=== PATIENT | male | born 1940 | race Caucasian/White ===

== ENCOUNTER 2019-10-07 02:23 | Emergency (ER) | payer MEDICARE, OTHER, SELFPAY ==
[2019-10-07] VITALS (18 sets, daily range): BP systolic 109–137; BP diastolic 66–87; PULSE 79–93; RESP 16–34; TEMP 36.5–36.6; O2SAT 95–100
--- NOTE | ~2019-10-07 | XR_ITS ---
EXAMINATION: XR chest 2V DATE: 10/07/2019 03:16 INDICATION: Fever and shortness of breath. TECHNIQUE: Frontal and lateral views of the chest were obtained. COMPARISON: Chest 2 views 09/11/2019, chest CT 09/12/2019 FINDINGS: The lung volumes are small. There are interstitial and airspace opacities in all lung zones bilaterally. No pleural effusion or pneumothorax. Cardiomegaly is noted. Median sternotomy wires and mediastinal surgical clips are seen, likely from prior coronary artery bypass grafting. There are pr ominent paracardial fat pads. There is surgical clips in the abdomen. IMPRESSION: 1. Small lung volumes with worsened diffuse lung disease, consistent with pulmonary edema versus pneu monia superimposed on chronic interstitial lung disease. 2. Cardiomegaly. Reviewed, dictated and finalized at location A. R REGISTRAR IMPRESSION: 1. Small lung volumes with worsened diffuse lung disease, consistent with pulmo nary edema versus pneumonia superimposed on chronic interstitial lung disease. 2. Cardiomegaly.
--- NOTE | 2019-10-07 02:25 | ED.FEVER ---
HPI - Fever General Chief Complaint: Fever Stated Complaint: fever Time Seen by Provider: 10/07/19 02:26 Source: patient, family, EMS and RN notes reviewed Mode of arrival: EMS Limitations: no limitations History of Present Illness HPI Narrative: A 78 y/o male presents to the ED via EMS from [facility] d/t a fever and SOB earlier today. Per EMS states that they were told that the pt had a fever of 101 and was sating 88% on his baseline 6L NC. Upon their arrival the pt had already received Tylenol and no longer had a fever and was sating 99% on his 6L. Per reports that [facility] today. She notes that the pt was seen here last month and was transferred to [facility], where he had a cardiac ablation. She notes that while there the pt got the flu and developed pneumonia, so he never got the biopsy because it was too dangerous . She also notes that the pt has been having generalized weakness and confusion. MD elicited complaint: fever Onset (ago): hour(s) Measured temperature: 101 F Relieving factors: acetaminophen Associated symptoms: shortness of breath (resolved), confusion and other (generalized weakness) Treatments prior to arrival fever: acetaminophen Related Data Home Medications Medication Instructions Recorded Confirmed cholecalciferol (vitamin D3) 25 1,000 unit PO DAILY 07/19/19 09/12/19 mcg (1,000 unit) capsule cyanocobalamin (vitamin B-12) 2,000 mcg PO DAILY 07/19/19 09/12/19 1,000 mcg capsule folic acid 1 mg tablet 1 mg PO DAILY 07/19/19 09/12/19 montelukast 10 mg tablet 10 mg PO DAILY 07/19/19 09/12/19 thiamine HCl (vitamin B1) 100 mg 100 mg PO DAILY 07/19/19 09/12/19 tablet furosemide 20 mg tablet 20 mg PO QAM 07/20/19 09/12/19 acetaminophen 500 mg PO Q4H PRN 10/07/19 aspirin [Adult Low Dose Aspirin] 81 mg PO DAILY 10/07/19 bupropion HCl 75 mg PO DAILY 10/07/19 levalbuterol HCl 1.25 mg INHALATION QID 10/07/19 melatonin 3 mg PO HS 10/07/19 metoprolol tartrate 12.5 mg PO BID 10/07/19 prednisone 20 mg PO DAILY 10/07/19 prednisone 30 mg PO DAILY 10/07/19 terazosin 1 mg PO DAILY 10/07/19 trazodone 25 mg PO HS 10/07/19 Allergies Allergy/AdvReac Type Severity Reaction Status Date / Time amoxicillin AdvReac Unknown Diarrhea Verified 10/07/19 02:59 Review of Systems Review of Systems: All systems reviewed & are unremarkable except as noted in HPI and below Constitutional: Constitutional: Reports fever(s) (101 - resolved) and Reports weakness (generalized) Respiratory: Respiratory: Reports dyspnea (resolved) Neurologic: Reports confusion [facility] Past Medical History Medical History Abrasion, face w/o infection Acute deep vein thrombosis (DVT) of distal end of left lower extremity Alcohol abuse Alcohol dependence in remission Alcoholism Atherosclerotic heart disease of [place] coronary artery with angina pectoris Bibasilar crackles Body mass index (bmi) 26.0-26.9, adult (11/19/18) Body mass index (bmi) 29.0-29.9, adult (09/09/17) BPH with elevated PSA Bronchospasm CAD (coronary artery disease) Chronic fatigue Deficiency of other specified B group vitamins Dietary counseling and surveillance (07/31/16) Dorsalgia, unspecified Elevated liver enzymes Elevated prostate specific antigen (PSA) Emotional lability Encounter for immunization (06/21/18) Encounter for Medicare annual wellness exam Essential (primary) hypertension Exercise hypoxemia Falls frequently Gastro-esophageal reflux disease without esophagitis Hyperplastic polyp of descending colon Impacted cerumen of right ear Low back pain Major depressive disorder, recurrent, unspecified Major depressive disorder, single episode, unspecified Mixed hyperlipidemia MRSA (methicillin resistant staph aureus) culture positive Other dietary vitamin B12 deficiency anemia Other prison (current) drug therapy Other streptococcus as the cause of diseases classified elsewhere Overwe
[2019-10-07 03:02] LABS: Basophils Percent Auto 0.1 % (0.2-1.2); Eosinophils Absolute Auto 0.1 K/mm3 (0-0.3); Eosinophils Percent Auto 1.3 % (0-4.4); Hematocrit 34.4 % (42.0-52.0); Hemoglobin 11.5 g/dL (14.0-18.0); Immature Granulocyte Absolute 0.05 K/mm3 (0.00-0.031); Immature Granulocyte Percent A 0.5 % (0-0.5); Lymphocytes Absolute Auto 1.12 K/mm3 (0.9-3.2); Lymphocytes Percent Auto 12.1 % (18.3-44.2); Mean Corpuscular HGB Conc 33.4 g/dl (32-36); Mean Corpuscular Hemoglobin 34.6 pg (26-34); Mean Corpuscular Volume 103.6 fl (80-100); Mean Platelet Volume 11.2 fl (7.4-10.4); Monocytes Absolute Auto 0.5 K/mm3 (0.1-0.6); Monocytes Percent Auto 5.3 % (2.6-8.5); Neutrophils Absolute Auto 7.5 K/mm3 (1.3-6.7); Neutrophils Percent Auto 80.7 % (45.5-73.1); Platelet Count Result 166 k/mm3 (150-375); Red Blood Count 3.32 M/mm3 (4.6-6.20); White Blood Count 9.3 K/mm3 (4.5-10.0)
[2019-10-07 03:04] LABS: Alveolar/Arterial O2 Gradient 170.4 mmHg; Base Excess ABG 3.5 mEq/l (+/-2.0); Carboxyhemoglobin 0.1 % THb (0-2.0); Device NASAL CANNULA; Fractional Inspired Oxygen 44 %; HCO3 ABG 27.1 mEq/l (22.0-26.0); Methemoglobin ABG 0.2 %THb (0-1.5); Modified Allen's Test Pass; Oxygen Content ABG 17.1 %vol (16.0-22.0); Oxyhemoglobin 96.6 % THb (90.0-100.0); PCO2 ABG 37.5 mmHg (35.0-45.0); PO2 ABG 100.6 mmHg (80.0-100.0); PO2 FiO2 Ratio Arterial Blood 2.29 %; Reduced Hemoglobin 3.1 %THb (0-5.0); Site Drawn RIGHT RADIAL; Total Hemoglobin 12.5 g/dL (12.0-18.0); pH ABG 7.477 (7.350-7.450)
[2019-10-07 03:14] LABS: INR 2.3; Partial Thromboplastin Time 29.8 SECONDS (22.3-36.8); Prothrombin Time 24.4 Seconds (11.1-14.7)
[2019-10-07 03:18] LABS: Lactic Acid Reflex 0.8 mmol/L (0.7-2.1)
[2019-10-07 03:38] LABS: Alanine Aminotransferase 127 U/L (4-50); Alkaline Phosphatase 101 U/L (38-126); Aspartate Amino Transferase 78 U/L (17-59); Bilirubin,Total 0.8 mg/dL (0.2-1.3); Blood Urea Nitrogen 14 mg/dL (9-20); CRP 0.8 mg/dL (<1.0); Calcium 8.5 mg/dL (8.4-10.2); Carbon Dioxide 30 mmol/L (22-30); Chloride 101 mmol/L (98-107); Estimated Glomerular Filt Rate > 60; Glucose 82 mg/dL (75-110); Potassium 3.2 mmol/L (3.4-5.0); Sodium 137 mmol/L (137-145)
[2019-10-07 03:49] LABS: Add Urine Microscopic? YES; Appearance Urine Clear (Clear); Bilirubin Urine Negative (Negative); Blood Urine Negative (Negative); Color Urine Yellow (Yellow); Glucose Urine UA Negative (Negative); Ketones Urine Negative (Negative); Leukocyte Esterase Ur Negative LEU/UL (Negative); Mucus Urine Rare /lpf; Nitrate Urine Negative (Negative); Protein Urine Negative (Negative); RBC Urine 0-2 /hpf (0-2); Specific Grav Ur 1.018 (1.001-1.035); WBC Urine 0-3 /hpf
--- NOTE | 2019-10-07 05:13 | PC.NURSE ---
Called [facility] to transport patient back to facility...ETA 20 minutes.
== END 2019-10-07 05:53 ==
PROVIDERS: Emergency Provider Emergency Medicine; PCP Family Medicine
DX: J84.9 Interstitial pulmonary disease, unspecified (principal); I25.10 Atherosclerotic heart disease of native coronary artery without angina pectoris; D51.0 Vitamin B12 deficiency anemia due to intrinsic factor deficiency; E55.9 Vitamin D deficiency, unspecified; I10 Essential (primary) hypertension; K21.9 Gastro-esophageal reflux disease without esophagitis; E78.2 Mixed hyperlipidemia; Z86.14 Personal history of Methicillin resistant Staphylococcus aureus infection; Z79.82 Long term (current) use of aspirin; F10.21 Alcohol dependence, in remission; F33.9 Major depressive disorder, recurrent, unspecified; Z86.718 Personal history of other venous thrombosis and embolism; I51.7 Cardiomegaly
CPT/HCPCS: 36415; 36600; 71046; 80053; 81001; 82375; 82805; 83050; 83605; 85025; 85610; 85730; 86140; 87040; 87804; 99283

== ENCOUNTER 2019-12-21 18:40 | Inpatient (IN) | payer MEDICARE, OTHER, SELFPAY ==
[2019-12-21] VITALS (9 sets, daily range): BP systolic 135–166; BP diastolic 86–105; PULSE 102–123; RESP 12–40; TEMP 37.3; O2SAT 90–97
--- NOTE | ~2019-12-21 | CT_ITS ---
EXAMINATION: CT chest wo con EXAM DATE: 12/21/2019 20:28 INDICATION: Cough, shortness of breath, respiratory distress. TECHNIQUE: Spiral CT of the chest without contrast. Axial, coronal and sagittal images were reviewe d. Coronal maximum intensity pixel images of chest reviewed. The dose-length product (DLP) for this examination was 571.86 mGy-cm. The exposure was tailored according to patient size (auto mA exposur e control), and iterative reconstruction (ASIR) was used as additional dose reduction technique. Comp arison is made to prior examination from 09/12/2019. FINDINGS: There is extensive groundglass airspace disease throughout the lungs, with interlobular se ptal thickening. This has progressed significantly compared to this examination, which could be progr ession of nonspecific interstitial pneumonitis pattern interstitial lung disease and/or superimposed acute airspace disease such as edema or pneumonia. There is no more solid confluent consolidation. Th ere is moderate sliding gastroesophageal hiatal hernia. There are no pleural or pericardial effusio ns. Tracheobronchial tree is patent. Some reactive borderline size mediastinal lymph nodes. Ther e is no pneumothorax. Sternotomy wires. There is cardiomegaly. There are dense coronary arteries, could be severe coronary arterial sclerosis and/or coronary artery stent(s), which are difficult to distinguish due to cardia c motion on this non-gated exam. Correlate with cardiac history and consider cardiology consult if no t recently evaluated. Punctate left nephrolithiasis. There is thoracic spondylosis without osteobla stic or osteolytic lesions identified. IMPRESSION: 1. Extensive bilateral groundglass opacities, intralobular septal thickening, significant progressio n compared to August. Could be progression of NSIP and/or superimposed acute edema or pneumonia. 2. Moderate-sized gastroesophageal hiatal hernia. 3. Cardiomegaly. Coronary arterial sclerosis or possibly stents. Reviewed, dictated and finalized at location A. IMPRESSION: 1. Extensive bilateral groundglass opacities, intralobular septal thickening, significant progression compared to August. Could be progression of NSIP and/o r superimposed acute edema or pneumonia. 2. Moderate-sized gastroesophageal hiatal hernia. 3. Cardiomegaly. Coronary arterial sclerosis or possibly stents.
--- NOTE | ~2019-12-21 | XR_ITS ---
EXAMINATION: XR chest 1V portable EXAM DATE: 12/21/2019 19:51 INDICATION: Extreme shortness of breath. TECHNIQUE: Portable AP frontal chest x-ray was obtained. Comparison is made to prior examination from 10/07/2019. FINDINGS: Sternotomy wires are present without findings to suggest sternal dehiscence. Again there is cardiomegaly and pulmonary vascular congestion. Again there is rather extensive bilateral abnormal r eticulation, probably edema and/or pneumonia, but please note that some component of interstitial irwin g disease was seen on prior chest CT earlier this year. There is no pneumothorax suspected. No sizabl e pleural effusion. There are mild bony degenerative changes. IMPRESSION: 1. Cardiomegaly, congestion and rather extensive abnormal reticulation, probably edema and/or pneum onia. Reviewed, dictated and finalized at location A. IMPRESSION: 1. Cardiomegaly, congestion and rather extensive abnormal reticulation, proba gypsy edema and/or pneumonia.
--- NOTE | ~2019-12-21 | XR_ITS ---
XR chest 1V portable DATE: 12/23/2019 12:58 INDICATION: Severe shortness of breath. History of interstitial lung disease TECHNIQUE: Portable AP chest on 12/23/2019 at 1255 hours COMPARISON: 12/21/[address] chest FINDINGS: There is no significant change of extensive interstitial infiltrates throughout both lungs compared to 12/21/2019. Status post sternotomy. No pleural effusion or pneumothorax is evident. IMPRESSION: Extensive interstitial infiltrates throughout both lungs, with little interval change com pared to 12/21/2019 Reviewed, dictated and finalized at location A. IMPRESSION: Extensive interstitial infiltrates throughout both lungs, with chanel le interval change compared to 12/21/2019
--- NOTE | ~2019-12-21 | XR_ITS ---
XR chest 1V portable 12/25/2019 08:11 Indication: Interstitial lung disease exacerbation. Dyspnea. Procedure: AP portable chest Comparison: Comparison to multiple prior studies sequentially, with oldest reviewed study dated 09/11. Findings: Shallow inspiration. Status post median sternotomy. No significant change to diffuse bilate ral airspace disease compared with prior examination. No pneumothorax. No acute osseous abnormality. Impression: 1: No significant change to diffuse bilateral airspace disease which may represent pneumonia or edema . Reviewed, dictated and finalized at location A. Impression: 1: No significant change to diffuse bilateral airspace disease which may repres ent pneumonia or edema.
--- NOTE | 2019-12-21 19:19 | ECG_ITS ---
Measurements Intervals [place] Rate: 98 P: -35 CT: 204 QRS: 14 QRSD: 79 T: -18 QT: 318 QTc: 407 Interpretive Statements SINUS RHYTHM VENTRICULAR PREMATURE COMPLEX, ATRIAL COUPLET AND FREQUENT ATRIAL PREMATURE COMPLEXES BASELINE ARTIFACT- I, III, AVL, AVF ABNORMAL ECG Electronically Signed On 12-22-2019 7:13:05 CDT by Carlton Hunter D.O.
--- NOTE | 2019-12-21 19:45 | ED.SOB ---
HPI - SOB/Dyspnea General Chief Complaint: Shortness of Breath/Dyspnea Stated Complaint: RESP DISTRESS Time Seen by Provider: 12/21/19 19:29 Source: patient History of Present Illness HPI Narrative: Pt c/o sob, started 2 night ago, worse today. Pt has a h/o interstitial lung disease and on 3-4 L at home. Pt also c/o left sided chest tightness. MD elicited complaint: shortness of breath and cough Severity: similar to previous episodes Related Data Home Medications Medication Instructions Recorded Confirmed cholecalciferol (vitamin D3) 25 1,000 unit PO DAILY 07/19/19 10/24/19 mcg (1,000 unit) capsule cyanocobalamin (vitamin B-12) 2,000 mcg PO DAILY 07/19/19 10/24/19 1,000 mcg capsule folic acid 1 mg tablet 1 mg PO DAILY 07/19/19 10/24/19 thiamine HCl (vitamin B1) 100 mg 100 mg PO DAILY 07/19/19 10/24/19 tablet oxygen-air delivery systems #1 11/24/19 11/24/19 furosemide 40 mg tablet 40 mg PO QAM tablet 12/19/19 12/19/19 pantoprazole [Protonix] 40 mg PO QAM 12/21/19 12/21/19 Allergies Allergy/AdvReac Type Severity Reaction Status Date / Time amoxicillin AdvReac Unknown Diarrhea Verified 12/19/19 10:29 Review of Systems Review of Systems: All systems reviewed & are unremarkable except as noted in HPI and below Constitutional: Constitutional: Denies body ache(s), Denies chills, Denies excessive sweating, Denies fatigue, Denies fever(s), Denies headache(s), Denies lethargy, Denies malaise, Denies weakness and Denies weight loss Eyes: Eyes: Denies blurry vision, Denies change in vision and Denies loss of vision ENT: Denies dizziness, Denies ear discharge, Denies headache(s), Denies lip swelling, Denies epistaxis, Denies nasal congestion, Denies neck pain, Denies throat swelling and Denies tongue swelling Cardiovascular: Cardiovascular: Denies chest pain at rest, Denies chest pain with activity, Denies diaphoresis, Denies rapid heart rate, Denies edema, Denies irregular heart rhythm, Denies lightheadedness and Denies palpitations Respiratory: Respiratory: Denies chest congestion and Denies hemoptysis Gastrointestinal: Gastrointestinal: Denies abdominal pain, Denies melena, Denies hematochezia, Denies diarrhea, Denies nausea, Denies vomiting and Denies hematemesis Musculoskeletal: Musculoskeletal: Denies abnormal gait, Denies deformity, Denies joint swelling, Denies limited range of motion, Denies neck pain and Denies numbness Neurologic: Denies Abnormal speech present, Denies abnormal gait, Denies confusion, Denies dizziness, Denies headache(s), Denies focal weakness, Denies loss of vision, Denies numbness, Denies Other visual disturbances, Denies Sensory deficit (Neuro) and Denies weakness Psychiatric: Psychiatric: Denies confusion, Denies depression, Denies auditory hallucinations, Denies homicidal ideation and Denies suicidal ideation Endocrine: Endocrine: Denies cold intolerance, Denies excessive sweating, Denies fatigue, Denies heat intolerance and Denies palpitations Hematologic/Lymphatic: Hematologic/Lymphatic: Denies easy bleeding and Denies easy bruising Allergic/Immunologic: Allergic/Immunologic: Denies lip swelling, Denies throat swelling and Denies tongue swelling [facility] Past Medical History Medical History (Updated 12/21/19 @ 21:47 by Ethan Uriostegui MD) Abrasion, face w/o infection Acute deep vein thrombosis (DVT) of distal end of left lower extremity Alcohol abuse Alcohol dependence in remission Alcoholism Atherosclerotic heart disease of [place] coronary artery with angina pectoris Bibasilar crackles Body mass index (bmi) 26.0-26.9, adult (11/19/18) Body mass index (bmi) 29.0-29.9, adult (09/09/17) BPH with elevated PSA Bronchospasm CAD (coronary artery disease) Chronic fatigue Colon polyp Deficiency of other specified B group vitamins Dietary counseling and surveillance (07/31/16) Dorsalgia, unspecified Elevated liver enzymes Elevated prostate specific antigen (PSA) Emotional lability Encounter
[2019-12-21] MEDS: ALBUTEROL SULFATE NEB 2.5 MG/0.5 ML INH 5 MG INHALATION (19:50)
[2019-12-21] MEDS: IPRATROPIUM BR 0.02% INH SOLN 0.5 MG/2.5 ML VIAL INHALATION (19:50)
[2019-12-21 20:02] LABS: Alveolar/Arterial O2 Gradient 165.1 mmHg; Base Excess ABG 0.8 mEq/l (+/-2.0); Carboxyhemoglobin 0.6 % THb (0-2.0); Device NASAL CANNULA; Fractional Inspired Oxygen 40 %; HCO3 ABG 24.2 mEq/l (22.0-26.0); Methemoglobin ABG 0.3 %THb (0-1.5); Modified Allen's Test Pass; Oxygen Content ABG 18.8 %vol (16.0-22.0); Oxygen Saturation ABG 96.4 % (95.0-100.0); Oxyhemoglobin 94.6 % THb (90.0-100.0); PCO2 ABG 35.2 mmHg (35.0-45.0); PO2 ABG 79.6 mmHg (80.0-100.0); PO2 FiO2 Ratio Arterial Blood 1.99 %; Reduced Hemoglobin 4.5 %THb (0-5.0); Site Drawn LEFT RADIAL; Total Hemoglobin 14.1 g/dL (12.0-18.0); pH ABG 7.456 (7.350-7.450)
--- NOTE | 2019-12-21 20:14 | PC.NURSE ---
Assumed care of pt at this time. report from EDWIN Bolden
[2019-12-21 21:05] LABS: Basophils Absolute Auto 0.1 K/mm3 (0.0-0.1); Basophils Percent Auto 0.6 % (0.2-1.2); Eosinophils Absolute Auto 0.4 K/mm3 (0-0.3); Eosinophils Percent Auto 3.7 % (0-4.4); Hematocrit 39.1 % (42.0-52.0); Hemoglobin 12.7 g/dL (14.0-18.0); Immature Granulocyte Absolute 0.08 K/mm3 (0.00-0.031); Immature Granulocyte Percent A 0.9 % (0-0.5); Lymphocytes Absolute Auto 1.37 K/mm3 (0.9-3.2); Lymphocytes Percent Auto 14.7 % (18.3-44.2); Mean Corpuscular HGB Conc 32.5 g/dl (32-36); Mean Corpuscular Hemoglobin 31.2 pg (26-34); Mean Corpuscular Volume 96.1 fl (80-100); Mean Platelet Volume 10.6 fl (7.4-10.4); Monocytes Absolute Auto 0.6 K/mm3 (0.1-0.6); Monocytes Percent Auto 6.6 % (2.6-8.5); Neutrophils Absolute Auto 6.9 K/mm3 (1.3-6.7); Neutrophils Percent Auto 73.5 % (45.5-73.1); Platelet Count Result 163 k/mm3 (150-375); Red Blood Count 4.07 M/mm3 (4.6-6.20); Red Cell Distribution Width 12.9 % (11.5-14.5); White Blood Count 9.4 K/mm3 (4.5-10.0)
[2019-12-21 21:17] LABS: Blood Urea Nitrogen 10 mg/dL (9-20); Calcium 8.7 mg/dL (8.4-10.2); Carbon Dioxide 30 mmol/L (22-30); Chloride 101 mmol/L (98-107); Estimated Glomerular Filt Rate > 60; Glucose 101 mg/dL (75-110); Sodium 136 mmol/L (137-145)
[2019-12-21 21:29] LABS: NT Pro B Type Natriuretic Pept 566 PG/ML (5-100); Troponin I 0.014 ng/mL (0.000-0.034)
[2019-12-21] MEDS: FUROSEMIDE INJ 40 MG/4 ML VIAL 20 MG IV PUSH (21:43)
--- NOTE | 2019-12-21 22:08 | ECG_ITS ---
Measurements Intervals [place] Rate: 125 P: FL: 0 QRS: 50 QRSD: 77 T: -15 QT: 286 QTc: 412 Interpretive Statements MULTIFOCAL ATRIAL TACHYCARDIA ATRIAL PREMATURE COMPLEXES NONSPECIFIC ST & T-WAVE ABNORMALITY- DIFFUSE LEADS BASELINE ARTIFACT- I, III, V1-V3 ABNORMAL ECG Electronically Signed On 12-22-2019 7:21:53 CDT by Carlton Hunter D.O.
--- NOTE | 2019-12-21 22:17 | PC.NURSE ---
pt called out. reports it is a lot of work to urinate and he is short of breath and has chest pain. pt requesting inhaler. EDP notified and respiratory called to place pt on bipap
[2019-12-21] MEDS: LORAZEPAM INJ 2 MG/ML VIAL 0.5 MG IV PUSH (22:49)
[2019-12-22] VITALS (24 sets, daily range): BP systolic 92–156; BP diastolic 64–97; PULSE 73–112; RESP 12–97; TEMP 36.8–37.2; O2SAT 29–100; BMI 27.6
--- NOTE | 2019-12-22 02:24 | ADMGEN ---
This patient, Sonny Laguerre, was admitted to Intensive Care Unit-9 12/22/2019 0158. Patient/family oriented to hospital policies and general routines including ID bracelet, bed and alarms, visiting hours, pain management, procedures, bathroom and other care routines, personal items, smoking policy, room service/diet, and visiting hours. Valuables list has been completed. Information on how to activate the Rapid Response Team has been discussed. Patient/Family are encouraged to report perceived risks to care and to ask questions if they do not understand what they are told or what they should do.
[2019-12-22 02:41] LABS: Alveolar/Arterial O2 Gradient 488.8 mmHg; Base Excess ABG 5.7 mEq/l (+/-2.0); Fractional Inspired Oxygen 90 %; HCO3 ABG 28.9 mEq/l (22.0-26.0); Oxygen Content ABG 18.9 %vol (16.0-22.0); Oxygen Saturation ABG 98.5 % (95.0-100.0); Oxyhemoglobin 97.1 % THb (90.0-100.0); PO2 FiO2 Ratio Arterial Blood 1.28 %; Total Hemoglobin 13.7 g/dL (12.0-18.0)
[2019-12-22 02:43] LABS: Device HIGH FLOW NASAL CANN; Modified Allen's Test Pass; Site Drawn RIGHT RADIAL
--- NOTE | 2019-12-22 03:15 | PM.IMHP ---
H&P: HPI History of Present Illness Chief complaint: Acute Resp Failure Narrative: This is a 78-year-old male with known coronary artery disease status post CABG x3, chronic alcoholism, history of chronic interstitial lung disease with recently diagnosed nonspecific interstitial pneumonia since November of 2018 who presented to the hospital with a complaint of worsening shortness of breath over the past 2 days. The patient is known to normally be on 3-4 L of oxygen at home. The patient has also had left sided chest pain tonight which he describes as mild. The patient reports that he has been coughing but isn't sure if he has had a fever. He was evaluated in the ER tonight and swabbed for COVID-19 virus. The patient was found to be in acute respiratory distress and was initiated on Bipap but downgraded back to nasal cannula as he is a COVID-19 rule out. The patient arrived to the ICU on 5L of oxygen via NC. CT Chest demonstrated extensive bilateral groundglass opacities. The patient denies any other symptoms at this time. The patient was treated with lasix and antibiotics in the ER tonight. Wheel Press Operator has been consulted. Review of Systems Review of Systems: All systems reviewed & are unremarkable except as noted in HPI and below PMFSH Past Medical History Medical History Abrasion, face w/o infection Acute deep vein thrombosis (DVT) of distal end of left lower extremity Alcohol abuse Alcohol dependence in remission Alcoholism Atherosclerotic heart disease of [place] coronary artery with angina pectoris Bibasilar crackles Body mass index (bmi) 26.0-26.9, adult (11/19/18) Body mass index (bmi) 29.0-29.9, adult (09/09/17) BPH with elevated PSA Bronchospasm CAD (coronary artery disease) Chronic fatigue Colon polyp Deficiency of other specified B group vitamins Dietary counseling and surveillance (07/31/16) Dorsalgia, unspecified Elevated liver enzymes Elevated prostate specific antigen (PSA) Emotional lability Encounter for immunization (06/21/18) Encounter for Medicare annual wellness exam Essential (primary) hypertension Exercise hypoxemia Falls frequently Gastro-esophageal reflux disease without esophagitis Hyperglycemia Hyperplastic polyp of descending colon Impacted cerumen of right ear Low back pain Major depressive disorder, recurrent, unspecified Major depressive disorder, single episode, unspecified Mixed hyperlipidemia MRSA (methicillin resistant staph aureus) culture positive Other dietary vitamin B12 deficiency anemia 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 Other streptococcus as the cause of diseases classified elsewhere Overweight Oxygen dependent Peripheral edema Pernicious anemia Pure hypercholesterolemia Recurrent infections Spinal stenosis, lumbar region with neurogenic claudication Steroid dependence Vasomotor rhinitis Vitamin B12 deficiency anemia due to intrinsic factor deficiency Vitamin D deficiency, unspecified Surgical History Surgical History History of back surgery (~03/24/15) History of back surgery (~2009) History of cardiac radiofrequency ablation History of cardiac radiofrequency ablation (RFA) History of fundoplication History of lumbosacral spine surgery (~04/24/15) History of [place] fundoplication (~1997) History of open heart surgery (~1996) S/P CABG x 3 Family History Family History Sibling Hypertension Mother Asthma Family history of cardiovascular disease Patient's mother is , Onset Age: 50 Father Patient's father is , Onset Age: 47 Social History Social History Years smoked: 1 Smoking status: Former smoker Tobacco type: cigarettes Second hand tobacco smoke exposure: No Smoking end date: 08/24/77 Alcohol intake: f
--- NOTE | 2019-12-22 03:27 | ECG_ITS ---
Measurements Intervals [place] Rate: 116 P: 6 HI: 217 QRS: 74 QRSD: 83 T: 2 QT: 354 QTc: 494 Interpretive Statements SINUS TACHYCARDIA WITH FIRST DEGREE AV BLOCK ATRIAL TRIPLET AND ATRIAL AND VENTRICULAR COUPLETS BORDERLINE T WAVE ABNORMALITY- ANT/INF LEADS ABNORMAL ECG Electronically Signed On 12-22-2019 7:26:43 CDT by Carlton Hunter D.O.
[2019-12-22] MEDS: ENOXAPARIN 80 MG/0.8 ML SYRINGE 65 MG SUB-Q ×2 (04:20→17:52)
[2019-12-22 04:46] LABS: Basophils Percent Auto 0.4 % (0.2-1.2); Eosinophils Absolute Auto 0.3 K/mm3 (0-0.3); Eosinophils Percent Auto 3.1 % (0-4.4); Hematocrit 37.7 % (42.0-52.0); Hemoglobin 12.5 g/dL (14.0-18.0); Immature Granulocyte Absolute 0.06 K/mm3 (0.00-0.031); Immature Granulocyte Percent A 0.7 % (0-0.5); Lymphocytes Absolute Auto 1.29 K/mm3 (0.9-3.2); Lymphocytes Percent Auto 14.5 % (18.3-44.2); Mean Corpuscular HGB Conc 33.2 g/dl (32-36); Mean Corpuscular Hemoglobin 31.6 pg (26-34); Mean Corpuscular Volume 95.4 fl (80-100); Mean Platelet Volume 9.8 fl (7.4-10.4); Monocytes Absolute Auto 0.6 K/mm3 (0.1-0.6); Monocytes Percent Auto 6.5 % (2.6-8.5); Neutrophils Absolute Auto 6.7 K/mm3 (1.3-6.7); Neutrophils Percent Auto 74.8 % (45.5-73.1); Platelet Count Result 147 k/mm3 (150-375); Red Blood Count 3.95 M/mm3 (4.6-6.20); Red Cell Distribution Width 12.6 % (11.5-14.5); White Blood Count 8.9 K/mm3 (4.5-10.0)
[2019-12-22 05:06] LABS: Blood Urea Nitrogen 11 mg/dL (9-20); Calcium 8.5 mg/dL (8.4-10.2); Carbon Dioxide 33 mmol/L (22-30); Chloride 99 mmol/L (98-107); Estimated CRCL calculation 47 ml/min; Estimated Glomerular Filt Rate > 60; Glucose 94 mg/dL (75-110); Magnesium 1.9 mg/dL (1.6-2.3); Potassium 3.8 mmol/L (3.4-5.0); Sodium 134 mmol/L (137-145)
[2019-12-22] MEDS: CHOLECALCIFEROL 1,000 UNIT TABLET 1000 UNITS PO (08:41)
[2019-12-22] MEDS: busPIRone HCL 10 MG TABLET PO ×2 (08:41→17:52)
[2019-12-22] MEDS: CYANOCOBALAMIN 1,000 MCG TABLET 2000 MCG PO (08:41)
[2019-12-22] MEDS: FOLIC ACID 1 MG TABLET PO (08:41)
[2019-12-22] MEDS: FUROSEMIDE 40 MG TABLET PO (08:41)
[2019-12-22] MEDS: PANTOPRAZOLE 40 MG TABLET PO (08:41)
[2019-12-22] MEDS: THIAMINE HCL 100 MG TABLET PO (08:42)
[2019-12-22] MEDS: TERAZOSIN HCL 1 MG CAPSULE PO (08:42)
[2019-12-22] MEDS: LEVALBUTEROL HFA (*SP) 15 GM INHALER 2 PUFF INHALATION (09:24)
--- NOTE | 2019-12-22 09:52 | PM.IMPN ---
Progress Note: A&P Assessment and Plan (1) Pneumonia, unspecified organism: Code(s): J18.9 - Pneumonia, unspecified organism Status: Acute Assessment and Plan: Ceftriaxone, azithromycin Blood and sputum cultures, urine antigens, SARS-CoV-2 rt-PCR pending (2) Acute and chronic respiratory failure with hypoxia: Code(s): J96.21 - Acute and chronic respiratory failure with hypoxia Status: Acute Assessment and Plan: Likely due to pneumonia of undetermined etiology Oxygen, pulmoonary toilet, antibiotics (3) Suspected 2019 novel coronavirus infection: Code(s): R68.89 - Other general symptoms and signs Status: Acute Assessment and Plan: r/o COVID-19 viral infection. Contact Isolation. Supportive therapy. (4) Atrial fibrillation with RVR: Code(s): I48.91 - Unspecified atrial fibrillation Status: Acute Assessment and Plan: Converted to NSR while on IV diltiazem Therapeutic enoxaparin Cardiology following (5) Interstitial lung disease: Code(s): J84.9 - Interstitial pulmonary disease, unspecified Status: Chronic Assessment and Plan: Continue bronchodilators and steroids. Pulmonary following (6) Alcoholism: Code(s): F10.20 - Alcohol dependence, uncomplicated Status: Chronic Assessment and Plan: No drinking for 4 months (7) Gastro-esophageal reflux disease without esophagitis: Code(s): K21.9 - Gastro-esophageal reflux disease without esophagitis Status: Chronic Assessment and Plan: Continue protonix. (8) Hiatal hernia: Code(s): K44.9 - Diaphragmatic hernia without obstruction or gangrene Status: Acute Assessment and Plan: stable. (9) CAD (coronary artery disease): Qualifiers: Coronary Disease-Associated Artery/Lesion type: bypass graft [place] vs. transplanted heart: [place] heart Associated angina: without angina Qualified Code(s): I25.810 - Atherosclerosis of coronary artery bypass graft(s) without angina pectoris Code(s): I25.10 - Atherosclerotic heart disease of [place] coronary artery without angina pectoris Status: Chronic Assessment and Plan: w/ acute left sided chest pain, likely pleuritic No ACS Subjective Date/time seen: 12/22/19 09:52 Interval history: 12/19 Admitted with increased cough, dyspnea, hypoxia. 12/20: SOB with conversation. Tolerating diet. Cough with white sputum. No fever. Some chilling. Myalgias. Has not left house except for MD visit about 10 days PARAMEDICAL AIDE. Review of Systems Review of Systems: All systems reviewed & are unremarkable except as noted in HPI and below Exam Narrative: Exam Narrative: HEENT: EOMI, PERRL, sclerae nonicteric, pharyngeal mucosa pink and intact NECK: No JVD CHEST: Scattered fine crackles, mild tachypnea HEART: NL S1/S2, regular, no murmur ABDOMEN: BS+, soft, nontender, no mass, no bruits EXTREMITIES: No cyanosis, edema, or clubbing NEUROLOGIC: CN intact and symmetric to inspection. MUSCULOSKELETAL: Tone and strength symmetric. PSYCH: Alert. Oriented to person, place, and time. Objective Data Vital Signs Vital Signs: Vital Signs - 24 hr 12/21/19 19:04 12/21/19 19:07 12/21/19 19:08 Temperature 99.2 F Pulse Rate 102 H 104 H Pulse Rate [Apical] Pulse Rate [Bilateral Pedal (Dorsalis Pedis) Palpation] Respiratory Rate 28 H Blood Pressure 135/100 H Pulse Oximetry 96 96 12/21/19 19:57 12/21/19 20:04 12/21/19 20:09 Temperature Pulse Rate 102 H 123 H 105 H Pulse Rate [Apical] Pulse Rate [Bilateral Pedal (Dorsalis Pedis) Palpation] Respiratory Rate 28 H 12 29 H Blood Pressure 137/86 Pulse Oximetry 90 12/21/19 22:00 12/21/19 22:16 12/21/19 23:13 Temperature Pulse Rate 109 H 107 H 111 H Pulse Rate [Apical] Pulse Rate [Bilateral Pedal (Dorsalis Pedis) Palpation] Respiratory Rate 33 H 40 H 15 Blood Pressure 166/105 H 138/90 Pulse Ox
--- NOTE | 2019-12-22 11:14 | PM.CNCAR ---
Assessment and Plan Assessment and plan (1) Atrial fibrillation with RVR: Code(s): I48.91 - Unspecified atrial fibrillation Status: Acute Assessment and Plan: I actually see no significant atrial fibrillation. He does sinus rhythm with frequent PACs and/or multifocal atrial tachycardia. Will discontinue his diltiazem drip at this point. Metoprolol tartrate 12.5 mg p.o. b.i.d. will be initiated. (2) Suspected 2019 novel coronavirus infection: Code(s): R68.89 - Other general symptoms and signs Status: Acute Assessment and Plan: Test pending. Will a D-dimer as well as an INR. Continue anticoagulation for now until these results are back (3) ILD (interstitial lung disease): Code(s): J84.9 - Interstitial pulmonary disease, unspecified Status: Acute (4) CAD (coronary artery disease): Qualifiers: Coronary Disease-Associated Artery/Lesion type: bypass graft [place] vs. transplanted heart: [place] heart Associated angina: without angina Qualified Code(s): I25.810 - Atherosclerosis of coronary artery bypass graft(s) without angina pectoris Code(s): I25.10 - Atherosclerotic heart disease of [place] coronary artery without angina pectoris Status: Chronic Assessment and Plan: Restart low-dose aspirin 81 mg p.o. daily History of Present Illness History of Present Illness Consult date/time: 12/22/19 11:14 Requesting physician: Merrill Montilla MD Consult reason: atrial fibrillation Reason For Visit: Acute Resp Failure Narrative: Date of service 12/22/2019: He has a history coronary disease and follows with Dr. Reich as an outpatient. His history of bypass, alcoholism, chronic interstitial lung disease. Consultation was for atrial fibrillation which actually see none of. He does have what appears to be either multifocal atrial tachycardia or simple sinus tachycardia with frequent PACs but no clear evidence of atrial fibrillation. Regardless he came to the hospital because of some worsening shortness of breath. He has been more short of breath and coughing over the past couple of days. He is COVID pending. He is still on 5 L of oxygen. Chest x-ray shows extensive bilateral ground-glass opacities. Mild chest pain is complained of but this is not significant to him at this point. No syncope, presyncope, paroxysmal nocturnal dyspnea, orthopnea or significant edema Review of Systems Review of Systems: All systems reviewed & are unremarkable except as noted in HPI and below Constitutional: Constitutional: Denies body ache(s) and Denies chills Eyes: Eyes: Denies blurry vision ENT: Reports Normal hearing present Cardiovascular: Cardiovascular: Reports chest pain Respiratory: Respiratory: Reports cough and Reports dyspnea Gastrointestinal: Gastrointestinal: Denies abdominal pain Genitourinary: Genitourinary: Denies dysuria Musculoskeletal: Musculoskeletal: Denies neck pain Integumentary/Breasts: Skin/Breast: Denies dry skin Neurologic: Denies headache(s) Psychiatric: Psychiatric: Denies anxiety and Denies behavioral changes Endocrine: Endocrine: Denies fatigue and Denies flushing Hematologic/Lymphatic: Hematologic/Lymphatic: Denies easy bleeding Allergic/Immunologic: Allergic/Immunologic: Denies lip swelling PMFSH Past Medical History Medical History Abrasion, face w/o infection Acute deep vein thrombosis (DVT) of distal end of left lower extremity Alcohol abuse Alcohol dependence in remission Alcoholism Atherosclerotic heart disease of [place] coronary artery with angina pectoris Bibasilar crackles Body mass index (bmi) 26.0-26.9, adult (11/19/18) Body mass index (bmi) 29.0-29.9, adult (09/09/17) BPH with elevated PSA Bronchospasm CAD (coronary artery disease) Chronic fatigue Colon polyp Deficiency of other specified B group vitamins Dietary counseling and surveillance (07/31/16)
--- NOTE | 2019-12-22 11:17 | PC.NURSE ---
Per cardiology, Dr. Turner, hold [facility] gtt for now. 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
[2019-12-22] MEDS: methylPREDNISolone SOD SUCC 125 MG VIAL IV PUSH ×3 (11:25→23:38)
[2019-12-22 11:57] LABS: Prothrombin Time 13.3 Seconds (11.1-14.7)
[2019-12-22 12:00] LABS: D Dimer 1.38 ug/mL (<0.48)
--- NOTE | 2019-12-22 12:05 | PM.CNPUL ---
Assessment and Plan Assessment and plan (1) Interstitial lung disease: Code(s): J84.9 - Interstitial pulmonary disease, unspecified Status: Chronic Assessment and Plan: He appears to be having and acute ILD exacerbation. Diagnosis is unclear and unfortunately he's too sick for VATS Lung biopsy at this point. This is not a clear picture of NSIP or UIP. Hypersensisitivity pneumonitis, combination of ILD's are still possible. Most bacterial and viral infections have been ruled out at [facility]. Autoimmune and Jan Antibodies were checked at [facility] and are negative. Recommendations - Solumedrol 125 mg IV Q6h for 5 days then switch to prednisone 40 mg daily - patient still desaturating on 6 liters NC. This will happen when he coughs or is tachypnic. Would recommend switching to high flow nasal cannula at 30 liters and titrate FiO2 to keep sats > 92% - Agree with SARS-CoV-2 rule out - continue droplet precautions including having sterile stethoscopes in the room as well as approved disinfectant, eye coverings and gowns and gloves. - d/c bronchodilators as they hare of no value in his condition and may aggravate his Afib and SVT - Would consider discontinuing antibiotics if no clear bacterial infection is identified. Patient had 7-8 day course of Vancomcyin, Cefipime and Metronidazole at [facility] as well as 12 day course of Tamiflu. - Blastomyces and Histoplasma antibodies ordered. - Would have goals of care discussion with patient and family including DNR. Short and supervisor intermediates prognosis is very poor History of Present Illness History of Present Illness Consult date: 12/22/19 Chief complaint: Acute Resp Failure Narrative: 79 y/o male with ILD of unknown cause, h/o alcoholism presents from [place] with increased dyspnea and hypoxemic respiratory failure for the past 2-3 days. He was on 4 liters nasal cannula her and was admitted to ICU last night with 15 liters. I saw him at last visit here in the hospital in Aug 2019. At that time I recommended that he be transferred to [facility] for consideration of [facility] Lung biopsy. He did go to [facility] but unfortunately developed SVT and respiratory failure and underwent a diagnostic bronchoscopy with BAL which was negative for any infection incluidng PJP and HSV. He also had extensive autoimmune work including ANTOINETTE, Jan antibodies many others all of which were negative. His CT chest last night appears to show worsening bilateral diffuse ground glass opacities with developing sub pleural fibrosis, some traction bronchiectasis. I read through his chart from [facility] and it mentioned that he refused the VATS lung biopsy there. When I asked him why he said he was not happy with the care there and is waiting to have it done at [facility] but given the COVID situation it had been put on hold as it was considered non urgently. He was discharged on tappering doses of prednisone from [facility] starting at 40 mg daily and I believe he is was down to 20 mg daily prior to admission. Review of Systems Review of Systems: All systems reviewed & are unremarkable except as noted in HPI and below PMFSH Past Medical History Medical History Abrasion, face w/o infection Acute deep vein thrombosis (DVT) of distal end of left lower extremity Alcohol abuse Alcohol dependence in remission Alcoholism Atherosclerotic heart disease of [place] coronary artery with angina pectoris Bibasilar crackles Body mass index (bmi) 26.0-26.9, adult (11/19/18) Body mass index (bmi) 29.0-29.9, adult (09/09/17) BPH with elevated PSA Bronchospasm CAD (coronary artery disease) Chronic fatigue Colon polyp Deficiency of other specified B group vitamins Dietary counseling and surveillance (07/31/16) Dorsalgia, unspecified Elevated liver enzymes Elevated prostate specific antigen (PSA) Emotional lability Encounter for immunization (06/21/18) Encounter for Medicare annual wellness exam Essential (primary) hypertension Exercise hypoxem
[2019-12-22] MEDS: METOPROLOL TARTRATE 12.5 MG TABLET PO (20:39)
[2019-12-23] VITALS (15 sets, daily range): BP systolic 110–124; BP diastolic 69–98; PULSE 74–117; RESP 16–24; TEMP 36.1–36.8; O2SAT 91–97
[2019-12-23 08:03] LABS: SARS-CoV-2 RNA PCR Negative
[2019-12-23] MEDS: THIAMINE HCL 100 MG TABLET PO (09:12)
[2019-12-23] MEDS: FOLIC ACID 1 MG TABLET PO (09:13)
[2019-12-23] MEDS: CHOLECALCIFEROL 1,000 UNIT TABLET 1000 UNITS PO (09:13)
[2019-12-23] MEDS: busPIRone HCL 10 MG TABLET PO ×2 (09:13→17:57)
[2019-12-23] MEDS: METOPROLOL TARTRATE 12.5 MG TABLET PO ×2 (09:13→20:44)
[2019-12-23] MEDS: ENOXAPARIN 80 MG/0.8 ML SYRINGE 65 MG SUB-Q ×2 (09:14→17:58)
[2019-12-23] MEDS: TERAZOSIN HCL 1 MG CAPSULE PO (09:14)
[2019-12-23] MEDS: CYANOCOBALAMIN 1,000 MCG TABLET 2000 MCG PO (09:14)
[2019-12-23] MEDS: FUROSEMIDE 40 MG TABLET PO (09:14)
[2019-12-23] MEDS: PANTOPRAZOLE 40 MG TABLET PO (09:14)
[2019-12-23] MEDS: methylPREDNISolone SOD SUCC 125 MG VIAL IV PUSH ×3 (09:15→17:57)
--- NOTE | 2019-12-23 09:41 | PM.PNCARD ---
Progress Note: A&P Additional Plan 79-year-old man with coronary artery disease previous CABG, no recent ischemic symptoms or problems. Patient has sinus tachycardia with PACs, not atrial fibrillation Advancing interstitial lung disease high FiO2 requirement. Prognosis appears to be guarded since we do not have a specific diagnosis No specific cardiac recommendations today. Jc Reich MD [facility] Subjective Date/time seen: Date of service: 12/23/19 09:41 Interval history: Follow-up visit an 79-year-old gentleman who we were asked to see because of atrial fibrillation Patient's telemetry/ECGs do not show evidence of atrial fib he is in sinus rhythm/sinus tachycardia with PACs Patient is hospitalized because of worsening oxygenation, respiratory status appears to have interstitial lung disease so far without a specific diagnosis. Patient is now on high-dose steroids, pulmonology [employer] consultant note reviewed Exam Const: General: comfortable and no acute distress Eyes: Sclera: sclerae normal Pupils: Equal, round and reactive pupils present Neck: Neck: supple and no JVD Thyroid: thyroid normal Resp: Effort & Inspection: normal respiratory effort Auscultation: clear to auscultation bilaterally Cardio: Rate: regular rate and tachycardic Rhythm: regular rhythm GI: Auscultation: normal bowel sounds Skin: General skin exam: normal color Neuro: Cognition (Neuro): normal cognition Objective Data Vital Signs Vital Signs: Vital Signs - 24 hr 12/22/19 10:00 12/22/19 10:35 12/22/19 10:41 Temperature Pulse Rate 98 99 Respiratory Rate 20 25 H Blood Pressure 92/64 L Pulse Oximetry 95 97 100 12/22/19 10:42 12/22/19 11:31 12/22/19 11:45 Temperature 36.9 C Pulse Rate 106 H Respiratory Rate 30 H Blood Pressure 133/66 Pulse Oximetry 98 92 92 12/22/19 12:00 12/22/19 13:03 12/22/19 13:45 Temperature 36.8 C Pulse Rate 105 H 98 Respiratory Rate 28 H 23 H Blood Pressure 107/68 Pulse Oximetry 94 92 89 L 12/22/19 13:47 12/22/19 16:00 12/22/19 18:00 Temperature 36.8 C Pulse Rate 88 94 104 H Respiratory Rate 21 H Blood Pressure 115/85 Pulse Oximetry 94 12/22/19 20:00 12/22/19 20:01 12/22/19 20:39 Temperature 36.9 C Pulse Rate 95 98 95 Respiratory Rate 25 H Blood Pressure 114/79 Pulse Oximetry 96 93 12/22/19 22:00 12/23/19 00:00 12/23/19 02:00 Temperature 36.6 C Pulse Rate 84 76 74 Respiratory Rate 20 Blood Pressure 117/76 Pulse Oximetry 92 12/23/19 04:00 12/23/19 06:00 12/23/19 08:00 Temperature 36.8 C 36.1 C L Pulse Rate 102 H 104 H 94 Respiratory Rate 20 16 Blood Pressure 124/85 121/69 Pulse Oximetry 94 97 12/23/19 09:13 Temperature Pulse Rate 94 Respiratory Rate Blood Pressure Pulse Oximetry Intake/Output Intake/Output: Intake & Output 12/20/19 12/21/19 12/22/19 12/23/19 23:59 23:59 23:59 23:59 Intake Total 300 940 Output Total 850 100 Balance 300 90 -100 Meds/Results Medications: Active Medications Generic Name Dose Route Start Last Admin Trade Name Freq PRN Reason Stop Dose Admin Acetaminophen 650 mg 12/22/19 03:43 Tylenol Tablet PO Q4H PRN Mild Pain (1-3) or Fever Buspirone HCl 10 mg 12/22/19 09:00 12/23/19 09:13 Buspar PO 10 mg BID NISSA Administration Cyanocobalamin 2,000 mcg 12/22/19 09:00 12/23/19 09:14 Vitamin B-12 Tab PO 2,000 mcg DAILY NISSA Administration Enoxaparin Sodium 65 mg 12/22/19 18:00 12/23/19 09:14 Lovenox SUB-Q 65 mg Q12H NISSA Administration Folic Acid 1 mg 12/22/19 09:00 12/23/19 09:13 Folic Acid PO 1 mg DAILY NISSA Administration Furosemide 40 mg 12/22/19 09:00 12/23/19 09:14 Lasix Tablet PO 40 mg QAM NISSA Administration Diltiazem HCl 100 mg in 100 mls @ 0 mls/hr 12/22/19 03:35 12/22/19 11:16 Cardizem 100 Mg/D5w 100 Ml IV CONT 0 mg/hr .Q0M NISSA 0 mls/hr Infusion Protocol 0 MG/HR
--- NOTE | 2019-12-23 11:24 | PM.IMPN ---
Progress Note: A&P Assessment and Plan (1) Pneumonia, unspecified organism: Code(s): J18.9 - Pneumonia, unspecified organism Status: Acute Assessment and Plan: Ceftriaxone, azithromycin (2) Interstitial lung disease: Code(s): J84.9 - Interstitial pulmonary disease, unspecified Status: Chronic Assessment and Plan: High dose steroids (3) Acute and chronic respiratory failure with hypoxia: Code(s): J96.21 - Acute and chronic respiratory failure with hypoxia Status: Acute Assessment and Plan: Likely due to pneumonia of undetermined etiology, perhaps ILD flare Oxygen, pulmoonary toilet, antibiotics, steroids 12/22 Oxygen at 30 L (45%) (4) Suspected 2019 novel coronavirus infection: Code(s): R68.89 - Other general symptoms and signs Status: Acute Assessment and Plan: NEGATIVE COVID-19 (5) Alcoholism: Code(s): F10.20 - Alcohol dependence, uncomplicated Status: Chronic Assessment and Plan: No drinking for 4 months (6) Gastro-esophageal reflux disease without esophagitis: Code(s): K21.9 - Gastro-esophageal reflux disease without esophagitis Status: Chronic Assessment and Plan: Continue protonix. (7) Hiatal hernia: Code(s): K44.9 - Diaphragmatic hernia without obstruction or gangrene Status: Acute Assessment and Plan: stable. (8) CAD (coronary artery disease): Qualifiers: Coronary Disease-Associated Artery/Lesion type: bypass graft [place] vs. transplanted heart: [place] heart Associated angina: without angina Qualified Code(s): I25.810 - Atherosclerosis of coronary artery bypass graft(s) without angina pectoris Code(s): I25.10 - Atherosclerotic heart disease of [place] coronary artery without angina pectoris Status: Chronic Assessment and Plan: w/ acute left sided chest pain, likely pleuritic No ACS Subjective Date/time seen: 12/23/19 11:24 Interval history: 12/19 Admitted with increased cough, dyspnea, hypoxia. 12/22: Less SOB with conversation. Tolerating diet. Cough with white sputum. No fever. . Had not left house except for MD visit about 10 days [employer]. Review of Systems Review of Systems: All systems reviewed & are unremarkable except as noted in HPI and below Exam Narrative: Exam Narrative: HEENT: EOMI, PERRL, sclerae nonicteric, pharyngeal mucosa pink and intact NECK: No JVD CHEST: Scattered fine crackles, mild tachypnea HEART: NL S1/S2, regular, no murmur ABDOMEN: BS+, soft, nontender, no mass, no bruits EXTREMITIES: No cyanosis, edema, or clubbing NEUROLOGIC: CN intact and symmetric to inspection. MUSCULOSKELETAL: Tone and strength symmetric. PSYCH: Alert. Oriented to person, place, and time. Objective Data Vital Signs Vital Signs: Vital Signs - 24 hr 12/22/19 11:31 12/22/19 11:45 12/22/19 12:00 Temperature 98.4 F 98.3 F Pulse Rate 106 H 105 H Respiratory Rate 30 H 28 H Blood Pressure 133/66 107/68 Pulse Oximetry 92 92 94 12/22/19 13:03 12/22/19 13:45 12/22/19 13:47 Temperature Pulse Rate 98 88 Respiratory Rate 23 H Blood Pressure Pulse Oximetry 92 89 L 12/22/19 16:00 12/22/19 18:00 12/22/19 20:00 Temperature 98.3 F 98.4 F Pulse Rate 94 104 H 95 Respiratory Rate 21 H 25 H Blood Pressure 115/85 114/79 Pulse Oximetry 94 96 12/22/19 20:01 12/22/19 20:39 12/22/19 22:00 Temperature Pulse Rate 98 95 84 Respiratory Rate Blood Pressure Pulse Oximetry 93 12/23/19 00:00 12/23/19 02:00 12/23/19 04:00 Temperature 97.8 F 98.2 F Pulse Rate 76 74 102 H Respiratory Rate 20 20 Blood Pressure 117/76 124/85 Pulse Oximetry 92 94 12/23/19 06:00 12/23/19 08:00 12/23/19 09:13 Temperature 97.0 F L Pulse Rate 104 H 114 H 94 Respiratory Rate 16 Blood Pressure 121/69 Pulse Oximetry 97 12/23/19 10:00 Temperature Pulse Rate 117 H Respiratory Rate Blood Pressure P
--- NOTE | 2019-12-23 12:28 | PM.PNPUL ---
Progress Note: A&P Assessment and Plan (1) ILD (interstitial lung disease): Code(s): J84.9 - Interstitial pulmonary disease, unspecified Status: Acute Assessment and Plan: Seems to be clinically improving today slightly - continue Solumedrol 125 mg IV Q6h for 5 days then switch to prednisone 40 mg daily - wean FiO2 to keep sats > 92%. Once on 30liters and 35% can try switching to Nasal cannula at 6 liters or lower - SARS-CoV-2 has been ruled out - d/c bronchodilators as they hare of no value in his condition and may aggravate and cause tachyarrthymias. Has recent history of SVT and underwen ablation therapy at [facility] - Would consider discontinuing antibiotics if no clear bacterial infection is identified. Patient had 7-8 day course of Vancomcyin, Cefipime and Metronidazole at [facility] as well as 12 day course of Tamiflu. - Blastomyces and Histoplasma antibodies ordered. - Would have goals of care discussion with patient and family including DNR. Short and longterm prognosis is very poor Subjective Date/time seen: 12/23/19 12:28 Interval history: Feeling slighlty better. Stable sats on high flow nasal cannula 30 liters and 45% currently. Less coughing. Has been moved out of ICU. Review of Systems Review of Systems: All systems reviewed & are unremarkable except as noted in HPI and below Exam Narrative: Exam Narrative: Hypoxic on 6 liters with Sats dropping to 82%, tachypnic at 30's-40's Const: General: in distress Other: coughing, rapid shallow breathing HENMT: Mouth: Yes moist mucous membranes Eyes: General: appearance normal, both eyes and all related structures Neck: Neck: no JVD Resp: Auscultation: crackles (fine inspiratory crackles) and wheezes Cardio: Rate: tachycardic Rhythm: abnormal rhythm GI: GI Palp: Yes Soft to palpation Auscultation: normal bowel sounds Skin: General skin exam: normal color Other: scattered petechia Neuro: General: oriented to person, oriented to place, oriented to time and patient oriented x3 Speech: normal speech Objective Data Vital Signs Vital Signs: Vital Signs - 24 hr 12/22/19 13:03 12/22/19 13:45 12/22/19 13:47 Temperature Pulse Rate 98 88 Respiratory Rate 23 H Blood Pressure Pulse Oximetry 92 89 L 12/22/19 16:00 12/22/19 18:00 12/22/19 20:00 Temperature 36.8 C 36.9 C Pulse Rate 94 104 H 95 Respiratory Rate 21 H 25 H Blood Pressure 115/85 114/79 Pulse Oximetry 94 96 12/22/19 20:01 12/22/19 20:39 12/22/19 22:00 Temperature Pulse Rate 98 95 84 Respiratory Rate Blood Pressure Pulse Oximetry 93 12/23/19 00:00 12/23/19 02:00 12/23/19 04:00 Temperature 36.6 C 36.8 C Pulse Rate 76 74 102 H Respiratory Rate 20 20 Blood Pressure 117/76 124/85 Pulse Oximetry 92 94 12/23/19 06:00 12/23/19 08:00 12/23/19 09:13 Temperature 36.1 C L Pulse Rate 104 H 114 H 94 Respiratory Rate 16 Blood Pressure 121/69 Pulse Oximetry 97 12/23/19 10:00 Temperature Pulse Rate 117 H Respiratory Rate Blood Pressure Pulse Oximetry Intake/Output Intake/Output: Intake & Output 12/20/19 12/21/19 12/22/19 12/23/19 23:59 23:59 23:59 23:59 Intake Total 300 940 540 Output Total 850 100 Balance 300 90 440 Meds/Results Medications: Active Medications Generic Name Dose Route Start Last Admin Trade Name Freq PRN Reason Stop Dose Admin Acetaminophen 650 mg 12/22/19 03:43 Tylenol Tablet PO Q4H PRN Mild Pain (1-3) or Fever Buspirone HCl 10 mg 12/22/19 09:00 12/23/19 09:13 Buspar PO 10 mg BID NISSA Administration Cyanocobalamin 2,000 mcg 12/22/19 09:00 12/23/19 09:14 Vitamin B-12 Tab PO 2,000 mcg DAILY NISSA Administration Enoxaparin Sodium 65 mg 12/22/19 18:00 12/23/19 09:14 Lovenox SUB-Q 65 mg Q12H NISSA Administration Folic Acid 1 mg 12/22/19 09:00 12/23/19 09:13 Folic Acid PO 1 mg DAILY NISSA Administration Furosemide 40 mg 12/22/19
[2019-12-24] VITALS (18 sets, daily range): BP systolic 103–133; BP diastolic 48–90; PULSE 74–99; RESP 16–24; TEMP 35.9–36.9; O2SAT 93–95
[2019-12-24] MEDS: methylPREDNISolone SOD SUCC 125 MG VIAL IV PUSH ×4 (00:06→17:52)
[2019-12-24 05:49] LABS: Hematocrit 38.8 % (42.0-52.0); Hemoglobin 12.3 g/dL (14.0-18.0); Mean Corpuscular HGB Conc 31.7 g/dl (32-36); Mean Corpuscular Hemoglobin 31.5 pg (26-34); Mean Corpuscular Volume 99.2 fl (80-100); Mean Platelet Volume 10.7 fl (7.4-10.4); Platelet Count Result 151 k/mm3 (150-375); Red Blood Count 3.91 M/mm3 (4.6-6.20); Red Cell Distribution Width 12.4 % (11.5-14.5); White Blood Count 12.1 K/mm3 (4.5-10.0)
[2019-12-24 06:10] LABS: Blood Urea Nitrogen 24 mg/dL (9-20); Calcium 8.9 mg/dL (8.4-10.2); Carbon Dioxide 28 mmol/L (22-30); Chloride 99 mmol/L (98-107); Estimated CRCL calculation 57 ml/min; Estimated Glomerular Filt Rate > 60; Glucose 242 mg/dL (75-110); Potassium 4.1 mmol/L (3.4-5.0); Sodium 133 mmol/L (137-145)
--- NOTE | 2019-12-24 09:49 | PM.IMPN ---
Subjective Date/time seen: 12/24/19 09:49 Objective Data Vital Signs Vital Signs: Vital Signs - 24 hr 12/23/19 10:00 12/23/19 12:00 12/23/19 13:00 Temperature 98.2 F Pulse Rate 117 H 105 H Respiratory Rate 24 H Blood Pressure 110/77 Pulse Oximetry 92 92 12/23/19 14:00 12/23/19 16:00 12/23/19 18:00 Temperature 98.2 F Pulse Rate 92 98 101 H Respiratory Rate 24 H Blood Pressure 124/98 H Pulse Oximetry 91 12/23/19 20:00 12/23/19 20:44 12/23/19 22:00 Temperature 97.1 F L Pulse Rate 105 H 100 95 Respiratory Rate 24 H Blood Pressure 117/71 Pulse Oximetry 94 12/24/19 00:00 12/24/19 02:00 12/24/19 04:00 Temperature 97.1 F L Pulse Rate 87 76 92 Respiratory Rate 24 H 24 H Blood Pressure 113/73 Pulse Oximetry 95 94 12/24/19 04:27 12/24/19 05:54 12/24/19 08:00 Temperature 97.7 F 98.4 F Pulse Rate 92 97 99 Respiratory Rate 24 H 16 Blood Pressure 109/73 133/90 Pulse Oximetry 94 94 Intake/Output Intake/Output: Intake & Output 12/21/19 12/22/19 12/23/19 12/24/19 23:59 23:59 23:59 23:59 Intake Total 999 829 7735 600 Output Total 850 1220 400 Balance 300 90 580 200 Meds/Results Medications: Active Medications Generic Name Dose Route Start Last Admin Trade Name Freq PRN Reason Stop Dose Admin Acetaminophen 650 mg 12/22/19 03:43 Tylenol Tablet PO Q4H PRN Mild Pain (1-3) or Fever Buspirone HCl 10 mg 12/22/19 09:00 12/23/19 17:57 Buspar PO 10 mg BID NISSA Administration Cyanocobalamin 2,000 mcg 12/22/19 09:00 12/23/19 09:14 Vitamin B-12 Tab PO 2,000 mcg DAILY NISSA Administration Enoxaparin Sodium 40 mg 12/24/19 09:00 Lovenox SUB-Q DAILY NISSA Folic Acid 1 mg 12/22/19 09:00 12/23/19 09:13 Folic Acid PO 1 mg DAILY NISSA Administration Furosemide 40 mg 12/22/19 09:00 12/23/19 09:14 Lasix Tablet PO 40 mg QAM NISSA Administration Ceftriaxone Sodium/Dextrose 1 gm in 50 mls @ 100 mls/hr 12/22/19 21:00 12/23/19 21:15 Rocephin 1 Gm/D5w 50 Ml IVPB Infused Q24H NISSA Infusion Azithromycin 500 mg in 250 mls @ 250 mls/hr 12/23/19 21:00 12/23/19 23:00 Zithromax IVPB Infused HS NISSA Infusion Lorazepam 1 mg 12/22/19 03:19 Ativan Inj IV PUSH Q4H PRN Withdrawal Methylprednisolone Sodium Succinate 125 mg 12/22/19 10:25 12/24/19 05:23 Solu-Medrol IV PUSH 125 mg Q6HR NISSA Administration Metoprolol Tartrate 12.5 mg 12/22/19 21:00 12/23/19 20:44 Lopressor PO 12.5 mg Q12HR NISSA Administration Pantoprazole Sodium 40 mg 12/22/19 09:00 12/23/19 09:14 Protonix PO 40 mg QAM NISSA Administration Terazosin HCl 1 mg 12/22/19 09:00 12/23/19 09:14 Hytrin PO 1 mg DAILY NISSA Administration Thiamine HCl 100 mg 12/22/19 09:00 12/23/19 09:12 Vitamin B-1 PO 100 mg QAM NISSA Administration Trazodone HCl 25 mg 12/23/19 21:00 12/23/19 22:02 Desyrel PO 25 mg HS NISSA Administration Vitamin D 1,000 unit 12/22/19 09:00 12/23/19 09:13 Vitamin D PO 1,000 unit DAILY NISSA Administration Radiology Results: ITS Impressions Chest CT 12/21/19 20:31 IMPRESSION: 1. Extensive bilateral groundglass opacities, intralobular septal thickening, significant progression compared to August. Could be progression of NSIP and/or superimposed acute edema or pneumonia. 2. Moderate-sized gastroesophageal hiatal hernia. 3. Cardiomegaly. Coronary arterial sclerosis or possibly stents. Chest X-Ray 12/23/19 13:16 IMPRESSION: Extensive interstitial infiltrates throughout both lungs, with little interval change compared to 12/21/2019 Labs Labs: Laboratory Results - last 24 hr 12/24/19 12/24/19 05:32 05:32 WBC 12.1 H RBC 3.91 L Hgb 12.3 L Hct 38.8 L MCV 99.2 MCH 31.5 MCHC 31.7 L RDW 12.4 Plt Count 151 MPV 10.7 H Sodium 133 L Potassium 4.1 Chloride 99 Carbon Dioxide 28 BUN
[2019-12-24] MEDS: CYANOCOBALAMIN 1,000 MCG TABLET 2000 MCG PO (09:58)
[2019-12-24] MEDS: busPIRone HCL 10 MG TABLET PO ×2 (09:59→17:53)
[2019-12-24] MEDS: FOLIC ACID 1 MG TABLET PO (09:59)
[2019-12-24] MEDS: METOPROLOL TARTRATE 12.5 MG TABLET PO ×2 (09:59→20:23)
[2019-12-24] MEDS: CHOLECALCIFEROL 1,000 UNIT TABLET 1000 UNITS PO (09:59)
[2019-12-24] MEDS: FUROSEMIDE 40 MG TABLET PO (09:59)
[2019-12-24] MEDS: ENOXAPARIN 40 MG/0.4 ML SYRINGE SUB-Q (09:59)
[2019-12-24] MEDS: THIAMINE HCL 100 MG TABLET PO (09:59)
[2019-12-24] MEDS: PANTOPRAZOLE 40 MG TABLET PO (09:59)
[2019-12-24] MEDS: TERAZOSIN HCL 1 MG CAPSULE PO (09:59)
--- NOTE | 2019-12-24 12:55 | PM.PNPUL ---
Progress Note: A&P Assessment and Plan (1) ILD (interstitial lung disease): Code(s): J84.9 - Interstitial pulmonary disease, unspecified Status: Acute Assessment and Plan: Seems to be clinically improving today slightly - continue Solumedrol 125 mg IV Q6h for 5 days then switch to prednisone 40 mg daily - wean FiO2 to keep sats > 92%. Once on 30liters and 35% can try switching to Nasal cannula at 6 liters or lower - SARS-CoV-2 has been ruled out - d/c bronchodilators as they hare of no value in his condition and may aggravate and cause tachyarrthymias. Has recent history of SVT and [facility] - Would consider discontinuing antibiotics if no clear bacterial infection is identified. Patient had 7-8 day course of Vancomcyin, Cefipime and Metronidazole at [facility] as well as 12 day course of Tamiflu. - Blastomyces and Histoplasma antibodies ordered. - Would have goals of care discussion with patient and family including DNR. Short and long-term prognosis is very poor Subjective Date/time seen: 12/24/19 12:55 Interval history: Feeling slightly better than admission. Less coughing but still has significant dyspnea with minimal exertion or coughing Review of Systems Review of Systems: All systems reviewed & are unremarkable except as noted in HPI and below Exam Narrative: Exam Narrative: Hypoxic on 6 liters with Sats dropping to 82%, tachypnic at 30's-40's Const: General: in distress Other: coughing, rapid shallow breathing HENMT: Mouth: Yes moist mucous membranes Eyes: General: appearance normal, both eyes and all related structures Neck: Neck: no JVD Resp: Auscultation: crackles (fine inspiratory crackles) and wheezes Cardio: Rate: tachycardic Rhythm: abnormal rhythm GI: GI Palp: Yes Soft to palpation Auscultation: normal bowel sounds Skin: General skin exam: normal color Other: scattered petechia Neuro: General: oriented to person, oriented to place, oriented to time and patient oriented x3 Speech: normal speech Objective Data Vital Signs Vital Signs: Vital Signs - 24 hr 12/23/19 13:00 12/23/19 14:00 12/23/19 16:00 Temperature 36.8 C Pulse Rate 92 98 Respiratory Rate 24 H Blood Pressure 124/98 H Pulse Oximetry 92 91 12/23/19 18:00 12/23/19 20:00 12/23/19 20:44 Temperature 36.2 C L Pulse Rate 101 H 105 H 100 Respiratory Rate 24 H Blood Pressure 117/71 Pulse Oximetry 94 12/23/19 22:00 12/24/19 00:00 12/24/19 02:00 Temperature 36.2 C L Pulse Rate 95 87 76 Respiratory Rate 24 H Blood Pressure 113/73 Pulse Oximetry 95 12/24/19 04:00 12/24/19 04:27 12/24/19 05:54 Temperature 36.5 C Pulse Rate 92 92 97 Respiratory Rate 24 H 24 H Blood Pressure 109/73 Pulse Oximetry 94 94 12/24/19 08:00 12/24/19 09:59 12/24/19 10:09 Temperature 36.9 C Pulse Rate 99 88 98 Respiratory Rate 16 Blood Pressure 133/90 Pulse Oximetry 94 12/24/19 11:46 Temperature 35.9 C L Pulse Rate 88 Respiratory Rate 16 Blood Pressure 103/48 L Pulse Oximetry 94 Intake/Output Intake/Output: Intake & Output 12/21/19 12/22/19 12/23/19 12/24/19 23:59 23:59 23:59 23:59 Intake Total 130 239 2229 600 Output Total 850 1220 400 Balance 300 90 580 200 Meds/Results Medications: Active Medications Generic Name Dose Route Start Last Admin Trade Name Freq PRN Reason Stop Dose Admin Acetaminophen 650 mg 12/22/19 03:43 Tylenol Tablet PO Q4H PRN Mild Pain (1-3) or Fever Buspirone HCl 10 mg 12/22/19 09:00 12/24/19 09:59 Buspar PO 10 mg BID NISSA Administration Cyanocobalamin 2,000 mcg 12/22/19 09:00 12/24/19 09:58 Vitamin B-12 Tab PO 2,000 mcg DAILY NISSA Administration Enoxaparin Sodium 40 mg 12/24/19 09:00 12/24/19 09:59 Lovenox SUB-Q 40 mg DAILY NISSA Administration Folic Acid 1 mg 12/22/19 09:00 12/24/19 09:59 Folic Acid PO 1 mg DAILY NISSA Administration Furosemide 4
--- NOTE | 2019-12-24 14:42 | PM.PNCARD ---
Progress Note: A&P Assessment and Plan (1) Atrial fibrillation with RVR: Code(s): I48.91 - Unspecified atrial fibrillation Status: Deleted Assessment and Plan: No obvious atrial fibrillation. Remains in sinus rhythm with frequent PACs and/or multifocal atrial tachycardia. Currently, PAC's have lessened significantly and clearly in SR. Continue Metoprolol tartrate 12.5 mg p.o. b.i.d.. NO change at this time. Will see on an as needed basis. please do not hesitate to contact us with any additional questions or concerns. (2) Suspected 2019 novel coronavirus infection: Code(s): R68.89 - Other general symptoms and signs Status: Acute Assessment and Plan: DVT prophylaxis. COVID-19 negative. (3) ILD (interstitial lung disease): Code(s): J84.9 - Interstitial pulmonary disease, unspecified Status: Acute Assessment and Plan: Management Per pulmonology. workup has been underway for ILD. (4) CAD (coronary artery disease): Qualifiers: Coronary Disease-Associated Artery/Lesion type: bypass graft [place] vs. transplanted heart: [place] heart Associated angina: without angina Qualified Code(s): I25.810 - Atherosclerosis of coronary artery bypass graft(s) without angina pectoris Code(s): I25.10 - Atherosclerotic heart disease of [place] coronary artery without angina pectoris Status: Chronic Assessment and Plan: continue aspirin 81 mg p.o. daily Subjective Date/time seen: Date of service:12/24/19 14:42 Interval history: Follow-up visit an 79-year-old gentleman who we were asked to see because of atrial fibrillation Remains in sinus rhythm with intermittent sinus tachycardia with PACs Patient is hospitalized because of worsening oxygenation, respiratory status related to interstitial lung disease. Patient states he is no better or worse since yesterday. no chest pain, palpitations or dizziness. No new issues overnight. Denies edema. Review of Systems Review of Systems: All systems reviewed & are unremarkable except as noted in HPI and below Constitutional: Constitutional: Reports as per HPI, Denies body ache(s), Denies chills, Denies fatigue and Denies headache(s) Eyes: Eyes: Reports as per HPI and Denies blurry vision ENT: Reports as per HPI, Reports Normal hearing present, Denies headache(s), Denies lip swelling and Denies neck pain Cardiovascular: Cardiovascular: Reports as per HPI, Reports chest pain and Reports dyspnea Respiratory: Respiratory: Reports as per HPI, Reports cough and Reports dyspnea Gastrointestinal: Gastrointestinal: Reports as per HPI and Denies abdominal pain Genitourinary: Genitourinary: Reports as per HPI and Denies dysuria Musculoskeletal: Musculoskeletal: Reports as per HPI and Denies neck pain Integumentary/Breasts: Skin/Breast: Reports as per HPI and Denies dry skin Neurologic: Reports as per HPI, Reports Normal hearing present, Denies behavioral changes and Denies headache(s) Psychiatric: Psychiatric: Reports as per HPI, Denies anxiety and Denies behavioral changes Endocrine: Endocrine: Denies fatigue and Denies flushing Hematologic/Lymphatic: Hematologic/Lymphatic: Denies easy bleeding Allergic/Immunologic: Allergic/Immunologic: Denies lip swelling Exam Narrative: Exam Narrative: Alert and oriented appears in mild distress Const: General: comfortable, no acute distress and in distress HENMT: General nose exam: Normal nares present Eyes: Sclera: sclerae normal Pupils: Equal, round and reactive pupils present Neck: Neck: supple and no JVD Thyroid: thyroid normal Chest: Other: No chest wall pain a probation Resp: Effort & Inspection: normal respiratory effort Auscultation: clear to auscultation bilaterally and diminished lung sounds Other: Increased respiratory effort Poor air movement, expiratory wheezes upper lung [place], prolonged expiratory phase. Cardio: Rate: regular
--- NOTE | 2019-12-24 17:03 | PM.IMPN ---
Progress Note: A&P Assessment and Plan (1) Pneumonia, unspecified organism: Code(s): J18.9 - Pneumonia, unspecified organism Status: Acute Assessment and Plan: Ceftriaxone, azithromycin (2) Interstitial lung disease: Code(s): J84.9 - Interstitial pulmonary disease, unspecified Status: Chronic Assessment and Plan: High dose steroids No definite dx due to prior refusal of bx at [facility] Pulmonology following Px poor (3) Acute and chronic respiratory failure with hypoxia: Code(s): J96.21 - Acute and chronic respiratory failure with hypoxia Status: Acute Assessment and Plan: Likely due to pneumonia of undetermined etiology, perhaps ILD flare Oxygen, pulmoonary toilet, antibiotics, steroids 5/2 Oxygen at 30 L (45%) Wean as tolerated (4) Suspected 2019 novel coronavirus infection: Code(s): R68.89 - Other general symptoms and signs Status: Acute Assessment and Plan: NEGATIVE COVID-19 (5) Alcoholism: Code(s): F10.20 - Alcohol dependence, uncomplicated Status: Chronic Assessment and Plan: No drinking for 4 months (6) Gastro-esophageal reflux disease without esophagitis: Code(s): K21.9 - Gastro-esophageal reflux disease without esophagitis Status: Chronic Assessment and Plan: Continue protonix. (7) Hiatal hernia: Code(s): K44.9 - Diaphragmatic hernia without obstruction or gangrene Status: Acute Assessment and Plan: stable. (8) CAD (coronary artery disease): Qualifiers: Coronary Disease-Associated Artery/Lesion type: bypass graft [place] vs. transplanted heart: [place] heart Associated angina: without angina Qualified Code(s): I25.810 - Atherosclerosis of coronary artery bypass graft(s) without angina pectoris Code(s): I25.10 - Atherosclerotic heart disease of [place] coronary artery without angina pectoris Status: Chronic Assessment and Plan: w/ acute left sided chest pain, likely pleuritic Resolved No ACS Subjective Date/time seen: 12/24/19 17:03 Interval history: 12/23. Follow-up visit for bilateral pulmonary infiltrates and acute on chronic respiratory failure. Feeling a little better. Not short of breath at rest. Short of breath with any exertion. Tolerating diet. Denied chest pain, edema, GI or complaints, abnormal bleeding, headache or dizziness. Review of Systems Review of Systems: All systems reviewed & are unremarkable except as noted in HPI and below Exam Narrative: Exam Narrative: HEENT: EOMI, PERRL, sclerae nonicteric, pharyngeal mucosa pink and intact NECK: No JVD, adenopathy, or thyromegaly CHEST: Scattered crackles bilaterally. Normal effort. HEART: NL S1/S2, regular, no murmur ABDOMEN: BS+, soft, nontender, no mass, no bruits EXTREMITIES: No cyanosis, edema, or clubbing NEUROLOGIC: CN intact and symmetric to inspection. MUSCULOSKELETAL: Tone and strength symmetric. PSYCH: Alert. Oriented to person, place, and time. Objective Data Vital Signs Vital Signs: Vital Signs - 24 hr 12/23/19 18:00 12/23/19 20:00 12/23/19 20:44 Temperature 97.1 F L Pulse Rate 101 H 105 H 100 Respiratory Rate 24 H Blood Pressure 117/71 Pulse Oximetry 94 12/23/19 22:00 12/24/19 00:00 12/24/19 02:00 Temperature 97.1 F L Pulse Rate 95 87 76 Respiratory Rate 24 H Blood Pressure 113/73 Pulse Oximetry 95 12/24/19 04:00 12/24/19 04:27 12/24/19 05:54 Temperature 97.7 F Pulse Rate 92 92 97 Respiratory Rate 24 H 24 H Blood Pressure 109/73 Pulse Oximetry 94 94 12/24/19 08:00 12/24/19 09:59 12/24/19 10:09 Temperature 98.4 F Pulse Rate 99 88 98 Respiratory Rate 16 Blood Pressure 133/90 Pulse Oximetry 94 12/24/19 11:46 12/24/19 12:00 12/24/19 14:18 Temperature 96.7 F L Pulse Rate 88 91 81 Respiratory Rate 16 Blood Pressure 103/48 L Pulse Oximetry 94 12/24/19 16:00 [place]
[2019-12-25] VITALS (16 sets, daily range): BP systolic 103–143; BP diastolic 61–94; PULSE 79–140; RESP 12–24; TEMP 36–36.5; O2SAT 92–99
[2019-12-25] MEDS: methylPREDNISolone SOD SUCC 125 MG VIAL IV PUSH ×4 (00:06→17:34)
[2019-12-25 04:36] LABS: Hematocrit 34.6 % (42.0-52.0); Hemoglobin 11.6 g/dL (14.0-18.0); Mean Corpuscular HGB Conc 33.5 g/dl (32-36); Mean Corpuscular Hemoglobin 31.1 pg (26-34); Mean Corpuscular Volume 92.8 fl (80-100); Mean Platelet Volume 10.6 fl (7.4-10.4); Platelet Count Result 167 k/mm3 (150-375); Red Blood Count 3.73 M/mm3 (4.6-6.20); Red Cell Distribution Width 12.2 % (11.5-14.5)
[2019-12-25 04:53] LABS: Blood Urea Nitrogen 28 mg/dL (9-20); Carbon Dioxide 31 mmol/L (22-30); Chloride 99 mmol/L (98-107); Estimated CRCL calculation 48 ml/min; Estimated Glomerular Filt Rate > 60; Glucose 123 mg/dL (75-110); Potassium 3.7 mmol/L (3.4-5.0); Sodium 135 mmol/L (137-145)
[2019-12-25] MEDS: TERAZOSIN HCL 1 MG CAPSULE PO (09:19)
[2019-12-25] MEDS: CHOLECALCIFEROL 1,000 UNIT TABLET 1000 UNITS PO (09:19)
[2019-12-25] MEDS: PANTOPRAZOLE 40 MG TABLET PO (09:19)
[2019-12-25] MEDS: busPIRone HCL 10 MG TABLET PO ×2 (09:19→17:34)
[2019-12-25] MEDS: FOLIC ACID 1 MG TABLET PO (09:19)
[2019-12-25] MEDS: CYANOCOBALAMIN 1,000 MCG TABLET 2000 MCG PO (09:19)
[2019-12-25] MEDS: THIAMINE HCL 100 MG TABLET PO (09:19)
[2019-12-25] MEDS: METOPROLOL TARTRATE 12.5 MG TABLET PO ×2 (09:19→21:13)
[2019-12-25] MEDS: FUROSEMIDE 40 MG TABLET PO (09:19)
[2019-12-25] MEDS: ENOXAPARIN 40 MG/0.4 ML SYRINGE SUB-Q (09:20)
--- NOTE | 2019-12-25 10:40 | PM.IMPN ---
Progress Note: A&P Assessment and Plan (1) Pneumonia, unspecified organism: Code(s): J18.9 - Pneumonia, unspecified organism Status: Acute Assessment and Plan: Ceftriaxone, azithromycin day 3 (2) Interstitial lung disease: Code(s): J84.9 - Interstitial pulmonary disease, unspecified Status: Chronic Assessment and Plan: High dose steroids No definite dx due to prior defferral of bx at [facility] Pulmonology following Px poor D/w pt that, if he deteriorated and required intubation, he would likely require stay on ventilator snf and require placement at an LTAC for the remainder of his life Encouraged him to discuss code status with family (3) Acute and chronic respiratory failure with hypoxia: Code(s): J96.21 - Acute and chronic respiratory failure with hypoxia Status: Acute Assessment and Plan: Likely due to pneumonia of undetermined etiology, perhaps ILD flare Oxygen, pulmoonary toilet, antibiotics, steroids 5/3 Oxygen at 30 L (45%) Wean as tolerated (4) Suspected 2019 novel coronavirus infection: Code(s): R68.89 - Other general symptoms and signs Status: Acute Assessment and Plan: NEGATIVE COVID-19 (5) Alcoholism: Code(s): F10.20 - Alcohol dependence, uncomplicated Status: Chronic Assessment and Plan: No drinking for 4 months (6) Gastro-esophageal reflux disease without esophagitis: Code(s): K21.9 - Gastro-esophageal reflux disease without esophagitis Status: Chronic Assessment and Plan: Continue protonix. (7) Hiatal hernia: Code(s): K44.9 - Diaphragmatic hernia without obstruction or gangrene Status: Acute Assessment and Plan: stable. (8) CAD (coronary artery disease): Qualifiers: Coronary Disease-Associated Artery/Lesion type: bypass graft [place] vs. transplanted heart: [place] heart Associated angina: without angina Qualified Code(s): I25.810 - Atherosclerosis of coronary artery bypass graft(s) without angina pectoris Code(s): I25.10 - Atherosclerotic heart disease of [place] coronary artery without angina pectoris Status: Chronic Assessment and Plan: w/ acute left sided chest pain, likely pleuritic Resolved No ACS Subjective Date/time seen: 12/25/19 10:40 Interval history: 12/23. Follow-up visit for bilateral pulmonary infiltrates and acute on chronic respiratory failure. Feeling a little better. Not short of breath at rest. No cough. Short of breath with any exertion. Tolerating diet. Denied chest pain, edema, GI or complaints, abnormal bleeding, headache or dizziness. Review of Systems Review of Systems: All systems reviewed & are unremarkable except as noted in HPI and below Exam Narrative: Exam Narrative: HEENT: EOMI, PERRL, sclerae nonicteric, pharyngeal mucosa pink and intact NECK: No JVD, adenopathy, or thyromegaly CHEST: Diminished BS bilaterally HEART: NL S1/S2, regular, no murmur ABDOMEN: BS+, soft, nontender, no mass, no bruits EXTREMITIES: No cyanosis, edema, or clubbing NEUROLOGIC: CN intact and symmetric to inspection. MUSCULOSKELETAL: Tone and strength symmetric. PSYCH: Alert. Oriented to person, place, and time. Objective Data Vital Signs Vital Signs: Vital Signs - 24 hr 12/24/19 11:46 12/24/19 12:00 12/24/19 14:18 Temperature 96.7 F L Pulse Rate 88 91 81 Respiratory Rate 16 Blood Pressure 103/48 L Pulse Oximetry 94 12/24/19 16:00 12/24/19 18:19 12/24/19 19:49 Temperature 97.1 F L 98.2 F Pulse Rate 91 98 95 Respiratory Rate 16 24 H Blood Pressure 133/83 117/71 Pulse Oximetry 93 95 12/24/19 20:00 12/24/19 20:23 12/24/19 21:11 Temperature Pulse Rate 95 95 Respiratory Rate 24 H Blood Pressure Pulse Oximetry 95 95 12/24/19 22:00 12/25/19 00:00 12/25/19 02:00 Temperature 97.5 F L Pulse Rate 88 90 92 Respiratory Rate 24 H Blood Pressure 116/69
--- NOTE | 2019-12-25 14:01 | PM.PNPUL ---
Progress Note: A&P Assessment and Plan (1) ILD (interstitial lung disease): Code(s): J84.9 - Interstitial pulmonary disease, unspecified Status: Acute Assessment and Plan: Seems to be clinically improving today slightly - continue Solumedrol 125 mg IV Q6h for 5 days then switch to prednisone 40 mg daily on Thursday morning. He should remain on Prenisone for 4-6 weeks with a slow taper and transition to another immunesuppressive at that point. This can be done in our pulmonary clinic by myself or Dr. Marrero. - wean FiO2 to keep sats > 92%. Once on 30liters and 35% can try switching to Nasal cannula at 6 liters or lower - SARS-CoV-2 has been ruled out - d/c bronchodilators as they hare of no value in his condition and may aggravate and cause tachyarrthymias. Has recent history of SVT and underwen [facility] - Would consider discontinuing antibiotics if no clear bacterial infection is identified. Patient had 7-8 day course of Vancomcyin, Cefipime and Metronidazole at [facility] as well as 12 day course of Tamiflu. - Blastomyces and Histoplasma antibodies are pending - Would have goals of care discussion with patient and family including DNR. Short and snf prognosis is very poor Subjective Date/time seen: 12/25/19 14:01 Interval history: Feeling better, less coughing and less dyspnea. High flow weaned to 25 liters and 35% at 12 noon today. Although he's responding to high doses systemic steroids I explained to him and his Mallory that snf prognosis is poor for his condition. His only complaint is difficult sleeping at night. This is likely due to the systemic steroids. Review of Systems Review of Systems: All systems reviewed & are unremarkable except as noted in HPI and below Exam Narrative: Exam Narrative: Hypoxic on 6 liters with Sats dropping to 82%, tachypnic at 30's-40's Const: General: comfortable and no acute distress HENMT: Mouth: Yes moist mucous membranes Eyes: General: appearance normal, both eyes and all related structures Neck: Neck: no JVD Resp: Auscultation: crackles (fine inspiratory crackles), wheezes and diminished lung sounds Cardio: Rate: tachycardic Rhythm: abnormal rhythm GI: GI Palp: Yes Soft to palpation Auscultation: normal bowel sounds Skin: General skin exam: normal color Other: scattered petechia Neuro: General: oriented to person, oriented to place, oriented to time and patient oriented x3 Speech: normal speech Objective Data Vital Signs Vital Signs: Vital Signs - 24 hr 12/24/19 14:18 12/24/19 16:00 12/24/19 18:19 Temperature 36.2 C L Pulse Rate 81 91 98 Respiratory Rate 16 Blood Pressure 133/83 Pulse Oximetry 93 12/24/19 19:49 12/24/19 20:00 12/24/19 20:23 Temperature 36.8 C Pulse Rate 95 95 95 Respiratory Rate 24 H 24 H Blood Pressure 117/71 Pulse Oximetry 95 95 12/24/19 21:11 12/24/19 22:00 12/25/19 00:00 Temperature 36.4 C L Pulse Rate 88 90 Respiratory Rate 24 H Blood Pressure 116/69 Pulse Oximetry 95 96 12/25/19 02:00 12/25/19 04:00 12/25/19 05:53 Temperature 36.5 C Pulse Rate 92 80 82 Respiratory Rate 24 H Blood Pressure 111/61 Pulse Oximetry 96 12/25/19 08:00 12/25/19 08:36 12/25/19 09:19 Temperature 36.1 C L Pulse Rate 95 110 H Respiratory Rate 12 Blood Pressure 130/77 Pulse Oximetry 94 95 12/25/19 10:05 12/25/19 12:00 12/25/19 14:00 Temperature 36.1 C L Pulse Rate 79 79 92 Respiratory Rate 12 Blood Pressure 143/69 H Pulse Oximetry 92 Intake/Output Intake/Output: Intake & Output 12/22/19 12/23/19 12/24/19 12/25/19 23:59 23:59 23:59 23:59 Intake Total 940 1800 1200 560 Output Total 850 1220 840 450 Balance 90 580 360 110 Meds/Results Medications: Active Medications Generic Name Dose Route Start Last Admin Trade Name Freq PRN Reason Stop Dose Admin Acetaminophen 650 mg 12/22/19 03:43 Tylenol Tablet PO Q4H PRN M
[2019-12-25 16:55] LABS: Pneumococcal Antigen Urine Not Detected (Not Detected)
--- NOTE | 2019-12-25 22:39 | ECG_ITS ---
Measurements Intervals [place] Rate: 121 P: VT: 0 QRS: 37 QRSD: 98 T: -41 QT: 244 QTc: 346 Interpretive Statements ATRIAL FIBRILLATION WITH RAPID VENTRICULAR RESPONSE NONSPECIFIC ST & T-WAVE ABNORMALITY- DIFFUSE LEADS BASELINE ARTIFACT- II, III ABNORMAL ECG Electronically Signed On 12-26-2019 6:58:02 CDT by Carlton Hunter D.O.
[2019-12-26] VITALS (15 sets, daily range): BP systolic 103–130; BP diastolic 65–78; PULSE 56–95; RESP 16–24; TEMP 36.1–36.6; O2SAT 92–99
[2019-12-26] MEDS: methylPREDNISolone SOD SUCC 125 MG VIAL IV PUSH ×4 (00:10→17:35)
[2019-12-26 04:37] LABS: Hematocrit 33.4 % (42.0-52.0); Hemoglobin 11.4 g/dL (14.0-18.0); Mean Corpuscular HGB Conc 34.1 g/dl (32-36); Mean Corpuscular Hemoglobin 31.6 pg (26-34); Mean Corpuscular Volume 92.5 fl (80-100); Mean Platelet Volume 10.4 fl (7.4-10.4); Platelet Count Result 154 k/mm3 (150-375); Red Blood Count 3.61 M/mm3 (4.6-6.20); Red Cell Distribution Width 12.1 % (11.5-14.5); White Blood Count 8.2 K/mm3 (4.5-10.0)
[2019-12-26 04:54] LABS: Blood Urea Nitrogen 29 mg/dL (9-20); Calcium 8.7 mg/dL (8.4-10.2); Carbon Dioxide 32 mmol/L (22-30); Chloride 99 mmol/L (98-107); Estimated CRCL calculation 48 ml/min; Estimated Glomerular Filt Rate > 60; Glucose 136 mg/dL (75-110); Potassium 3.7 mmol/L (3.4-5.0); Sodium 133 mmol/L (137-145)
[2019-12-26 05:21] LABS: Magnesium 2.5 mg/dL (1.6-2.3)
[2019-12-26] MEDS: ENOXAPARIN 40 MG/0.4 ML SYRINGE SUB-Q (08:42)
[2019-12-26] MEDS: CYANOCOBALAMIN 1,000 MCG TABLET 2000 MCG PO (08:42)
[2019-12-26] MEDS: METOPROLOL TARTRATE 12.5 MG TABLET PO ×2 (08:42→10:37)
[2019-12-26] MEDS: PANTOPRAZOLE 40 MG TABLET PO (08:42)
[2019-12-26] MEDS: THIAMINE HCL 100 MG TABLET PO (08:42)
[2019-12-26] MEDS: FOLIC ACID 1 MG TABLET PO (08:43)
[2019-12-26] MEDS: TERAZOSIN HCL 1 MG CAPSULE PO (08:43)
[2019-12-26] MEDS: FUROSEMIDE 40 MG TABLET PO (08:43)
[2019-12-26] MEDS: busPIRone HCL 10 MG TABLET PO ×2 (08:43→17:35)
[2019-12-26] MEDS: CHOLECALCIFEROL 1,000 UNIT TABLET 1000 UNITS PO (08:43)
--- NOTE | 2019-12-26 12:19 | PM.IMPN ---
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 Goal discharge date is 12/27 if he continues to improve on PO steroids (3) Acute and chronic respiratory failure with hypoxia: Code(s): J96.21 - Acute and chronic respiratory failure with hypoxia Status: Acute Assessment and Plan: Likely due to pneumonia of undetermined etiology, perhaps ILD flare Oxygen, pulmoonary toilet, antibiotics, steroids 5/3 Oxygen at 30 L (45%) Wean as tolerated (4) Suspected 2019 novel coronavirus infection: Code(s): R68.89 - Other general symptoms and signs Status: Acute Assessment and Plan: NEGATIVE COVID-19 (5) Alcoholism: Code(s): F10.20 - Alcohol dependence, uncomplicated Status: Chronic Assessment and Plan: No drinking for 4 months (6) Gastro-esophageal reflux disease without esophagitis: Code(s): K21.9 - Gastro-esophageal reflux disease without esophagitis Status: Chronic Assessment and Plan: Continue protonix. (7) Hiatal hernia: Code(s): K44.9 - Diaphragmatic hernia without obstruction or gangrene Status: Acute Assessment and Plan: stable. (8) CAD (coronary artery disease): Qualifiers: Coronary Disease-Associated Artery/Lesion type: bypass graft [place] vs. transplanted heart: [place] heart Associated angina: without angina Qualified Code(s): I25.810 - Atherosclerosis of coronary artery bypass graft(s) without angina pectoris Code(s): I25.10 - Atherosclerotic heart disease of [place] coronary artery without angina pectoris Status: Chronic Assessment and Plan: w/ acute left sided chest pain, likely pleuritic Resolved No ACS (9) Paroxysmal atrial fibrillation: Code(s): I48.0 - Paroxysmal atrial fibrillation Status: Acute Assessment and Plan: Hx recent ablation procedure at [facility] 12/25 Episode overnote 5/ D/w cardiology and added apixaban 5mg PO q 12 hr Continue metoprolol Subjective Date/time seen: 12/26/19 12:19 Interval history: 12/24. Follow-up visit for bilateral pulmonary infiltrates and acute on chronic respiratory failure. Feeling better. On nasal cannula instead of high flow. Not short of breath at rest. No cough. Short of breath with any exertion. But able to do more with PT. Tolerating diet. Denied chest pain, edema, GI or complaints, abnormal bleeding, headache or dizziness. Review of Systems Review of Systems: All systems reviewed & are unremarkable except as noted in HPI and below Exam Narrative: Exam Narrative: HEENT: EOMI, PERRL, sclerae nonicteric, pharyngeal mucosa pink and intact NECK: No JVD, adenopathy, or thyromegaly CHEST: Diminished BS bilaterally HEART: NL S1/S2, regular, no murmur ABDOMEN: BS+, soft, nontender, no mass, no bruits EXTREMITIES: No cyanosis, edema, or clubbing NEUROLOGIC: CN intact and symmetric to inspection. MUSCULOSKELETAL: Tone and strength symmetric. PSYCH: Alert. Oriented to person, place, and time. Objective Data Vital Signs Vital Signs: Vital Signs - 24 hr 12/25/19 14:00 12/25/19 14:10 12/25/19 16:00 Temperature 96.9 F L Pulse Rate 92 89 Respiratory Rate 20 Blood Pressure 130/94 H Pulse Oximetry 95 96 12/25/19 18:00 12/25/19 19:30 12/25/19 20:00 Temperature 96.8 F L Pulse Rate 98 85 83 Respiratory Rate 20 Blood Pressure 117/82 Pulse Oximetry 99 12/25/19 22:55 12/26/19 00:00 12/26/19 00:26 Temperature 97.2 F L 97.1 F L Pulse Rate 1
--- NOTE | 2019-12-26 12:43 | PM.PNPUL ---
Progress Note: A&P Assessment and Plan (1) ILD (interstitial lung disease): Code(s): J84.9 - Interstitial pulmonary disease, unspecified Status: Acute Assessment and Plan: Seems to be clinically improving today slightly - continue Solumedrol 125 mg IV Q6h for 5 days then switch to prednisone 40 mg daily on Thursday morning. He should remain on Prenisone for 4-6 weeks with a slow taper and transition to another immunesuppressive at that point. This can be done in our pulmonary clinic by myself or Dr. Marrero. - wean FiO2 to keep sats > 92%. He is now on 6 liters / minute with adequate saturation. - SARS-CoV-2 has been ruled out - bronchodilators have been stopped as they are of no value in his condition and may aggravate and cause tachyarrthymias. He had rapid atrial fibrillation last night to 140, now in atrial fib with a controlled rate in the 70s. He has recent history of SVT and [facility] - Would consider discontinuing antibiotics if no clear bacterial infection is identified. Patient had 7-8 day course of Vancomcyin, Cefipime and Metronidazole at [facility] as well as 12 day course of Tamiflu. - Blastomyces and Histoplasma antibodies are pending. Sputum is showing heavy growth of yeast which does not confirm fungal pneumonia. This indicates probable colonization with Nilda. - Dr Mcguire had a goals of care discussion with patient and family including DNR yesterday. 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 Subjective Date/time seen: 12/26/19 12:43 Interval history: Feeling better, less coughing and less dyspnea. Resp rate now 24, decreased from 35-40 yesterday. He had an episode of rapid atril fib last night. High flow weaned to 6 L min, simple cannula from high flow system, saturation is 98%, high enough to continue to wean. He will need a home walk study prior to discharge. He's responding to high doses systemic steroids. He did not sleep well last night, steroid effect. Appetite is good. I discussed his care with Dr Mcguire Review of Systems Review of Systems: All systems reviewed & are unremarkable except as noted in HPI and below Exam Narrative: Exam Narrative: He is sitting in a chair, finished lunch, on 6 liters /minute. Const: General: comfortable and no acute distress Orientation/consciousness: oriented to person, oriented to place, oriented to time and patient oriented x3 Other: Able to take near normal inspiration without coughing; not in respiratory distress. HENMT: Mouth: Yes moist mucous membranes Eyes: General: appearance normal, both eyes and all related structures Neck: Neck: no JVD Resp: Auscultation: crackles (fine inspiratory crackles), wheezes and diminished lung sounds Cardio: Rate: regular rate Rhythm: abnormal rhythm (atrial fib, rate 78 ) irregularly irregular GI: Auscultation: normal bowel sounds Skin: General skin exam: normal color Other: scattered petechia Neuro: General: oriented to person, oriented to place, oriented to time and patient oriented x3 Speech: normal speech Extrem: General: no edema Objective Data Vital Signs Vital Signs: Vital Signs - 24 hr 12/25/19 14:00 12/25/19 14:10 12/25/19 16:00 Temperature 36.1 C L Pulse Rate 92 89 Respiratory Rate 20 Blood Pressure 130/94 H Pulse Oximetry 95 96 12/25/19 18:00 12/25/19 19:30 12/25/19 20:00 Temperature 36.0 C L Pulse Rate 98 85 83 Respiratory Rate 20 Blood Pressure 117/82 Pulse Oximetry 99 12/25/19 22:55 12/26/19 00:00 12/26/19 00:26 Temperature 36.2 C L 36.2 C L Pulse Rate 140 H 79 78 Respiratory Rate 24 H 22 H Blood Pressure 103/70 116/75 Pulse Oximetry 95 99 12/26/19 02:00 12/26/19 03:34 12/26/19 05:40 Temperature 36.1 C L Pulse Rate 87 78 56 L Respiratory Rate 24 H Blood Pressure 103/65 Pulse Oximetry 99 12/26/19 08:00 12/26/19 08:42 12/26/19 10:00 Temperature 3
--- NOTE | 2019-12-26 13:04 | PM.PNCARD ---
Progress Note: A&P Assessment and Plan (1) Atrial fibrillation with RVR: Code(s): I48.91 - Unspecified atrial fibrillation Status: Deleted Assessment and Plan: patient is now clearly developed atrial fibrillation with rapid ventricular response on telemetry. Increase metoprolol to 25 mg p.o. q.8 hours. Further recommendations based on response to therapy. Given block stroke risk recommend initiation of systemic anticoagulation with Eliquis 5 mg twice daily. Counseled patient the risks of bleeding versus embolic stroke risk reduction. All questions answered to his satisfaction. He agrees to start anticoagulation. CHADS2 Vasc score 5. (2) Suspected 2019 novel coronavirus infection: Code(s): R68.89 - Other general symptoms and signs Status: Acute Assessment and Plan: DVT prophylaxis. COVID-19 negative. (3) ILD (interstitial lung disease): Code(s): J84.9 - Interstitial pulmonary disease, unspecified Status: Acute Assessment and Plan: Management Per pulmonology. workup has been underway for ILD. Slight improvement today. (4) CAD (coronary artery disease): Qualifiers: Associated angina: without angina Coronary Disease-Associated Artery/Lesion type: bypass graft [place] vs. transplanted heart: [place] heart Qualified Code(s): I25.810 - Atherosclerosis of coronary artery bypass graft(s) without angina pectoris Code(s): I25.10 - Atherosclerotic heart disease of [place] coronary artery without angina pectoris Status: Chronic Assessment and Plan: continue aspirin 81 mg p.o. daily Subjective Date/time seen: Date of service: 12/26/19 13:04 Interval history: Follow-up visit an 79-year-old gentleman who we were asked to see because of atrial fibrillation Patient is hospitalized because of worsening oxygenation, respiratory status related to interstitial lung disease. Overnight patient developed clear atrial fibrillation with rapid ventricular response symptomatic with Palpitations, rapid heart beating and worsening shortness of breath beginning around 9:30 p.m. converting around 12:30 a.m.. Patient received IV diltiazem which controlled the heart rate improving his symptoms. Patient then converted to sinus rhythm. Patient feels better today so short of breath much improved. Exertional dyspnea persists but also improving. No chest pain. No dizziness. Working with physical therapy. Review of Systems Review of Systems: All systems reviewed & are unremarkable except as noted in HPI and below Constitutional: Constitutional: Reports as per HPI, Denies body ache(s), Denies chills, Denies fatigue and Denies headache(s) Eyes: Eyes: Reports as per HPI and Denies blurry vision ENT: Reports as per HPI, Reports Normal hearing present, Denies headache(s), Denies lip swelling and Denies neck pain Cardiovascular: Cardiovascular: Reports as per HPI, Reports chest pain and Reports dyspnea Respiratory: Respiratory: Reports as per HPI, Reports cough and Reports dyspnea Gastrointestinal: Gastrointestinal: Reports as per HPI and Denies abdominal pain Genitourinary: Genitourinary: Reports as per HPI and Denies dysuria Musculoskeletal: Musculoskeletal: Reports as per HPI and Denies neck pain Integumentary/Breasts: Skin/Breast: Reports as per HPI and Denies dry skin Neurologic: Reports as per HPI, Reports Normal hearing present, Denies behavioral changes and Denies headache(s) Psychiatric: Psychiatric: Reports as per HPI, Denies anxiety and Denies behavioral changes Endocrine: Endocrine: Denies fatigue and Denies flushing Hematologic/Lymphatic: Hematologic/Lymphatic: Denies easy bleeding Allergic/Immunologic: Allergic/Immunologic: Denies lip swelling Exam Narrative: Exam Narrative: Alert and oriented Looks much more comfortable today. Const: General: comfortable, no acute distress and in distress HENMT: General nose exam: N
--- NOTE | 2019-12-26 14:46 | PC.NURSE ---
This patient, Sonny Laguerre, was transferred to [facility] on 12/26/19 at 1420. Personal belongings sent with patient. Report given to Luba PINEDA. Appropriate documentation sent with patient.
--- NOTE | 2019-12-26 15:02 | PC.NURSE ---
This patient, Sonny Laguerre, was received from [[facility] ] on 12/26/19 at 1345. Personal belongings list checked and signed. Patient/family oriented to unit policies and routines
[2019-12-26 18:12] LABS: Blastomyces Antibody Negative (Negative)
[2019-12-26] MEDS: METOPROLOL TARTRATE 25 MG TABLET PO (20:40)
[2019-12-26] MEDS: APIXABAN 5 MG TABLET PO (20:52)
[2019-12-27] VITALS (14 sets, daily range): BP systolic 108–121; BP diastolic 61–71; PULSE 56–94; RESP 18–20; TEMP 36.3–36.7; O2SAT 93–97
[2019-12-27] MEDS: methylPREDNISolone SOD SUCC 125 MG VIAL IV PUSH (00:04)
[2019-12-27 05:27] LABS: Hemoglobin 11.7 g/dL (14.0-18.0); Mean Corpuscular HGB Conc 33.4 g/dl (32-36); Mean Corpuscular Hemoglobin 31.1 pg (26-34); Mean Corpuscular Volume 93.1 fl (80-100); Mean Platelet Volume 10.8 fl (7.4-10.4); Platelet Count Result 157 k/mm3 (150-375); Red Blood Count 3.76 M/mm3 (4.6-6.20); Red Cell Distribution Width 12.2 % (11.5-14.5); White Blood Count 8.9 K/mm3 (4.5-10.0)
[2019-12-27 05:41] LABS: Blood Urea Nitrogen 34 mg/dL (9-20); Calcium 8.8 mg/dL (8.4-10.2); Carbon Dioxide 32 mmol/L (22-30); Chloride 97 mmol/L (98-107); Estimated CRCL calculation 43 ml/min; Estimated Glomerular Filt Rate > 60; Glucose 168 mg/dL (75-110); Potassium 3.8 mmol/L (3.4-5.0); Sodium 134 mmol/L (137-145)
[2019-12-27] MEDS: METOPROLOL TARTRATE 25 MG TABLET PO ×2 (06:58→14:19)
--- NOTE | 2019-12-27 07:46 | PCOTNOTE ---
Attempted to see patient for skilled OT, however, patient stated he already performed all ADLs and functional mobility. Patient also declined to participate in BUE strengthening HEP. Patient stated he is returning home tomorrow and will follow up with home health OT/PT then. Patient not seen for OT this date.
[2019-12-27] MEDS: predniSONE 20 MG TABLET 40 MG PO (08:44)
[2019-12-27] MEDS: TERAZOSIN HCL 1 MG CAPSULE PO (08:44)
[2019-12-27] MEDS: FOLIC ACID 1 MG TABLET PO (08:44)
[2019-12-27] MEDS: CYANOCOBALAMIN 1,000 MCG TABLET 2000 MCG PO (08:44)
[2019-12-27] MEDS: FUROSEMIDE 40 MG TABLET PO (08:44)
[2019-12-27] MEDS: CHOLECALCIFEROL 1,000 UNIT TABLET 1000 UNITS PO (08:44)
[2019-12-27] MEDS: PANTOPRAZOLE 40 MG TABLET PO (08:45)
[2019-12-27] MEDS: APIXABAN 5 MG TABLET PO ×2 (08:45→21:10)
[2019-12-27] MEDS: busPIRone HCL 10 MG TABLET PO ×2 (08:45→16:57)
--- NOTE | 2019-12-27 11:30 | PM.IMPN ---
Progress Note: A&P Assessment and Plan (1) Pneumonia, unspecified organism: Code(s): J18.9 - Pneumonia, unspecified organism Status: Acute Assessment and Plan: Ceftriaxone, azithromycin day 5 (2) Interstitial lung disease: Code(s): J84.9 - Interstitial pulmonary disease, unspecified Status: Chronic Assessment and Plan: Change to p.o. 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 Goal discharge date is 12/27 if he continues to improve on PO steroids (3) Acute and chronic respiratory failure with hypoxia: Code(s): J96.21 - Acute and chronic respiratory failure with hypoxia Status: Acute Assessment and Plan: Likely due to pneumonia of undetermined etiology, perhaps ILD flare Oxygen, pulmoonary toilet, antibiotics, steroids 5/5 Oxygen at 5 L still Wean as tolerated (4) Suspected 2019 novel coronavirus infection: Code(s): R68.89 - Other general symptoms and signs Status: Acute Assessment and Plan: NEGATIVE COVID-19 (5) Alcoholism: Code(s): F10.20 - Alcohol dependence, uncomplicated Status: Chronic Assessment and Plan: No drinking for 4 months (6) Gastro-esophageal reflux disease without esophagitis: Code(s): K21.9 - Gastro-esophageal reflux disease without esophagitis Status: Chronic Assessment and Plan: Continue protonix. (7) Hiatal hernia: Code(s): K44.9 - Diaphragmatic hernia without obstruction or gangrene Status: Acute Assessment and Plan: stable. (8) CAD (coronary artery disease): Qualifiers: Associated angina: without angina Coronary Disease-Associated Artery/Lesion type: bypass graft [place] vs. transplanted heart: [place] heart Qualified Code(s): I25.810 - Atherosclerosis of coronary artery bypass graft(s) without angina pectoris Code(s): I25.10 - Atherosclerotic heart disease of [place] coronary artery without angina pectoris Status: Chronic Assessment and Plan: w/ acute left sided chest pain, likely pleuritic Resolved No ACS, ASA with beta-aixa (9) Paroxysmal atrial fibrillation: Code(s): I48.0 - Paroxysmal atrial fibrillation Status: Acute Assessment and Plan: Hx recent ablation procedure at [facility] 12/[address] Herozg 12/25 D/w cardiology and added apixaban 5mg PO q 12 hr Continue metoprolol Subjective Date/time seen: 12/27/19 11:30 Interval history: Date of visit 12/26 Follow-up visit for bilateral pulmonary infiltrates and acute on chronic respiratory failure. Feeling better. On nasal cannula instead of high flow. Not short of breath at rest. No cough. Short of breath with any exertion. But able to do more with PT. Tolerating diet. Denied chest pain, edema, GI or complaints, abnormal bleeding, headache or dizziness. Wants to go home 12/27 Exam Narrative: Exam Narrative: Blood pressure 120/60 pulse 76 saturating on 4-5 L HEENT:, PERRL, sclerae nonicteric, NECK: No JVD, neck supple CHEST: Diminished BS bilaterally and prolonged expiratory phase HEART: NL S1/S2, regular, no murmur ABDOMEN: BS+, soft, nontender, no masses EXTREMITIES: No edema, NEUROLOGIC: CN intact with no gross focal deficits PSYCH: Alert. Oriented to person, place, and time. Objective Data Vital Signs Vital Signs: Vital Signs - 24 hr 12/26/19 12:00 12/26/19 14:53 12/26/19 16:00 Temperature 36.6 C 36.4 C L Pulse Rate 76 74 74 Respiratory Rate 22 H 18 Blood Pressure 130/78 130/76 Pulse Oximetry 98 98 12/26/19 20:00 12/26/19 20:40 12/26/19 22:00 Temperature 36.4 C L Pulse Rate 86 84 71 Respiratory Rate 16 Blood Pressure 130/75 Pulse Oximetry 92 12/27/19 00:00 12/27/19 02:00 12/27/19 04:00 Temperature 36.3 C L Pulse Rate 76 71 60 Respiratory Rate 20 Blood Pressure 116/71 Pulse Oximet
--- NOTE | 2019-12-27 15:43 | PM.PNCARD ---
Progress Note: A&P Assessment and Plan (1) Atrial fibrillation with RVR: Code(s): I48.91 - Unspecified atrial fibrillation Status: Deleted Assessment and Plan: Maintaining sinus rhythm. Change metoprolol to 50 mg p.o. b.i.d. to simplify regimen. Continue Eliquis 5 mg twice daily. Counseled patient the risks of bleeding versus embolic stroke risk reduction. All questions answered to his satisfaction. He agrees to start anticoagulation. CHADS2 Vasc score 5. (2) Suspected 2019 novel coronavirus infection: Code(s): R68.89 - Other general symptoms and signs Status: Acute Assessment and Plan: DVT prophylaxis. COVID-19 negative. (3) ILD (interstitial lung disease): Code(s): J84.9 - Interstitial pulmonary disease, unspecified Status: Acute Assessment and Plan: Management Per pulmonology. workup has been underway for ILD. Slow improvement. (4) CAD (coronary artery disease): Qualifiers: Associated angina: without angina Coronary Disease-Associated Artery/Lesion type: bypass graft [place] vs. transplanted heart: [place] heart Qualified Code(s): I25.810 - Atherosclerosis of coronary artery bypass graft(s) without angina pectoris Code(s): I25.10 - Atherosclerotic heart disease of [place] coronary artery without angina pectoris Status: Chronic Assessment and Plan: continue aspirin 81 mg p.o. daily Subjective Date/time seen: Date of Service: 12/27/19 15:43 Interval history: Follow-up visit an 79-year-old gentleman who we were asked to see because of atrial fibrillation Patient is hospitalized because of worsening oxygenation, respiratory status related to interstitial lung disease. Feels better. Maintaining sinus rhythm. Tolerating medications. Denies chest pain. Still short of breath but improving. No falls, edema, palpitations or dizziness. Review of Systems Review of Systems: All systems reviewed & are unremarkable except as noted in HPI and below Constitutional: Constitutional: Reports as per HPI, Denies body ache(s), Denies chills, Denies fatigue and Denies headache(s) Eyes: Eyes: Reports as per HPI and Denies blurry vision ENT: Reports as per HPI, Reports Normal hearing present, Denies headache(s), Denies lip swelling and Denies neck pain Cardiovascular: Cardiovascular: Reports as per HPI, Reports chest pain and Reports dyspnea Respiratory: Respiratory: Reports as per HPI, Reports cough and Reports dyspnea Gastrointestinal: Gastrointestinal: Reports as per HPI and Denies abdominal pain Genitourinary: Genitourinary: Reports as per HPI and Denies dysuria Musculoskeletal: Musculoskeletal: Reports as per HPI and Denies neck pain Integumentary/Breasts: Skin/Breast: Reports as per HPI and Denies dry skin Neurologic: Reports as per HPI, Reports Normal hearing present, Denies behavioral changes and Denies headache(s) Psychiatric: Psychiatric: Reports as per HPI, Denies anxiety and Denies behavioral changes Endocrine: Endocrine: Denies fatigue and Denies flushing Hematologic/Lymphatic: Hematologic/Lymphatic: Denies easy bleeding Allergic/Immunologic: Allergic/Immunologic: Denies lip swelling Exam Narrative: Exam Narrative: Alert and oriented Looks much more comfortable today. Const: General: comfortable, no acute distress and in distress HENMT: General nose exam: Normal nares present Eyes: Sclera: sclerae normal Pupils: Equal, round and reactive pupils present Neck: Neck: supple and no JVD Thyroid: thyroid normal Chest: Other: No chest wall pain a probation Resp: Effort & Inspection: normal respiratory effort Auscultation: clear to auscultation bilaterally and diminished lung sounds Other: Reduced respiratory effort slight improvement in air movement, faint expiratory wheezes upper lung [place], prolonged expiratory phase. Cardio: Rate: regular rate Rhythm: regular rhythm GI: Auscult
--- NOTE | 2019-12-27 16:26 | PCPTNOTE ---
Patient voiced multiple c/o of staff using chair and bed alarms. Patient educated on the importance of his safety and the needs to provide a safe environment. Patient continued to complain and states I feel like I am in penitentiary! Patient refuses chair alarm. RN, OPERATIONS STAFF SPECIALIST SECURITY, and Unit Charge Nurse notified.
--- NOTE | 2019-12-27 18:54 | PM.PNPUL ---
Progress Note: A&P Assessment and Plan (1) ILD (interstitial lung disease): Code(s): J84.9 - Interstitial pulmonary disease, unspecified Status: Acute Assessment and Plan: Seems to be clinically improving today - continue oral steroids now on 40 mg daily; continue for 4-6 weeks with a slow taper and transition to another immunosuppressive at that point. This can be done in our pulmonary clinic. - wean FiO2 to keep sats > 92%. He is now on 5 liters / minute with adequate saturation. - SARS-CoV-2 has been ruled out - bronchodilators have been stopped as they are of no value in his condition and may aggravate and cause tachyarrthymias. December 25 had atrial fibrillation with rapid rate up to 140, now in atrial fib with a controlled rate in the 70s. He has recent history of SVT and underwent ablation therapy at [facility] - stop azithromycin and ceftriaxone - Blastomyces and Histoplasma antibodies are negative. Sputum is showing heavy growth of yeast which does not confirm fungal pneumonia. This indicates probable colonization with Nilda. -Home O2 study in the am, and discharge tomorrow likely. Will try to arrange for [employer] port O2 concentrator if it can supply his needs. These can deliver 5 L/min. He is on 5 L/min now at rest, and will need more with exertion. Subjective Date/time seen: 12/27/19 18:54 Interval history: Feeling better, less coughing and less dyspnea. Now on 5 L/min, was able to walk for 15 minutes in the halls, stopping the rest as needed. He wants an [employer] Port O2 concentrator from [facility] Patient with 5 L/min capacity. Will request Home O2 evaluation in the am to assure that 5 L/min is sufficient, as he may require more than 5 L/min with exertion. Responded better than expected to steroids, and now is on oral steroids. Still has difficulty sleeping at night. This is likely due to the systemic steroids. transferred from [facility] to [address] [place] [address], room 315 Review of Systems Review of Systems: All systems reviewed & are unremarkable except as noted in HPI and below (HPI, not sleeping well since admission, feels better today) Exam Narrative: Exam Narrative: He is reclining in bed, on 5 liters /minute. Const: General: comfortable and no acute distress Orientation/consciousness: oriented to person, oriented to place, oriented to time and patient oriented x3 Other: Able to take near normal inspiration without coughing; not in respiratory distress. HENMT: Mouth: Yes moist mucous membranes Eyes: General: appearance normal, both eyes and all related structures Neck: Neck: no JVD Resp: Auscultation: crackles (fine inspiratory crackles) and diminished lung sounds Cardio: Rate: regular rate Rhythm: abnormal rhythm (atrial fib, rate 78 ) irregularly irregular GI: Auscultation: normal bowel sounds Skin: General skin exam: normal color Other: scattered petechiae Neuro: General: oriented to person, oriented to place, oriented to time and patient oriented x3 Speech: normal speech Extrem: General: no edema Objective Data Vital Signs Vital Signs: Vital Signs - 24 hr 12/26/19 20:00 12/26/19 20:40 12/26/19 22:00 Temperature 36.4 C L Pulse Rate 86 84 71 Respiratory Rate 16 Blood Pressure 130/75 Pulse Oximetry 92 12/27/19 00:00 12/27/19 02:00 12/27/19 04:00 Temperature 36.3 C L Pulse Rate 76 71 60 Respiratory Rate 20 Blood Pressure 116/71 Pulse Oximetry 93 12/27/19 06:00 12/27/19 06:58 12/27/19 08:00 Temperature 36.6 C Pulse Rate 77 94 56 L Respiratory Rate 20 Blood Pressure 120/61 Pulse Oximetry 96 12/27/19 09:14 12/27/19 12:00 12/27/19 14:00 Temperature 36.6 C Pulse Rate 66 60 Respiratory Rate 18 Blood Pressure 121/63 Pulse Oximetry 93 94 12/27/19 14:19 12/27/19 16:00 Temperature Pulse Rate 86 68 Respiratory Rate Blood Pressure Pulse Oximetry Intake/Output Intake/Output: Intake & Output 12/24/19 12/25/19
[2019-12-27] MEDS: METOPROLOL TARTRATE 50 MG TAB PO (21:11)
[2019-12-28] VITALS (14 sets, daily range): BP systolic 107–133; BP diastolic 52–78; PULSE 52–73; RESP 18–20; TEMP 36.3–36.6; O2SAT 85–97
[2019-12-28 05:50] LABS: Blood Urea Nitrogen 39 mg/dL (9-20); Calcium 8.3 mg/dL (8.4-10.2); Carbon Dioxide 37 mmol/L (22-30); Chloride 96 mmol/L (98-107); Estimated CRCL calculation 48 ml/min; Estimated Glomerular Filt Rate > 60; Glucose 112 mg/dL (75-110); Hematocrit 36.3 % (42.0-52.0); Mean Corpuscular HGB Conc 33.1 g/dl (32-36); Mean Corpuscular Hemoglobin 31.2 pg (26-34); Mean Corpuscular Volume 94.3 fl (80-100); Mean Platelet Volume 10.9 fl (7.4-10.4); Platelet Count Result 161 k/mm3 (150-375); Potassium 4.1 mmol/L (3.4-5.0); Red Blood Count 3.85 M/mm3 (4.6-6.20); Red Cell Distribution Width 12.5 % (11.5-14.5); Sodium 134 mmol/L (137-145); White Blood Count 11.6 K/mm3 (4.5-10.0)
[2019-12-28] MEDS: FUROSEMIDE 40 MG TABLET PO (07:59)
[2019-12-28] MEDS: CHOLECALCIFEROL 1,000 UNIT TABLET 1000 UNITS PO (07:59)
[2019-12-28] MEDS: predniSONE 20 MG TABLET 40 MG PO (08:00)
[2019-12-28] MEDS: PANTOPRAZOLE 40 MG TABLET PO (08:00)
[2019-12-28] MEDS: busPIRone HCL 10 MG TABLET PO (08:00)
[2019-12-28] MEDS: TERAZOSIN HCL 1 MG CAPSULE PO (08:00)
[2019-12-28] MEDS: APIXABAN 5 MG TABLET PO (08:01)
[2019-12-28] MEDS: FOLIC ACID 1 MG TABLET PO (08:01)
[2019-12-28] MEDS: METOPROLOL TARTRATE 50 MG TAB PO (08:01)
[2019-12-28] MEDS: CYANOCOBALAMIN 1,000 MCG TABLET 2000 MCG PO (08:02)
--- NOTE | 2019-12-28 08:49 | PM.PNCARD ---
Progress Note: A&P Additional Plan 79-year-old man with paroxysmal atrial fibrillation he did have an episode of melanie AFib several days ago which was self-limited. For this reason he has been anticoagulated. Patient is expecting to be discharged today. Other physicians have yet to leave notes on the chart to this effect. I will ensure that he has appropriate follow-up in our office regarding his AFib and await decisions regarding discharge today Jc Reich MD [facility] Subjective Date/time seen: Date of service: 12/28/19 08:49 Interval history: 79-year-old patient with: Interstitial pneumonitis specific diagnosis has not yet been made improving significantly with steroids. Patient anticipating discharge today Paroxysmal atrial fibrillation. Initially when consulted patient did not have atrial fibrillation but then did have some melanie AFib 3 days ago. He has been maintained on beta-aixa in the form of metoprolol which is not a new drug for him. He is currently in sinus rhythm. Because of the atrial fib he has been now anticoagulated with apixaban. Exam Const: General: comfortable and no acute distress Other: Elderly man sitting in his room eating breakfast appears to be in no distress HENMT: Mouth: Yes moist mucous membranes Eyes: Sclera: sclerae normal Neck: Neck: supple and no JVD Thyroid: thyroid normal Resp: Other: Good air movement bilaterally no wheezing no rales no rhonchi Cardio: Rate: regular rate Rhythm: regular rhythm GI: Auscultation: normal bowel sounds Skin: General skin exam: normal color Neuro: Cognition (Neuro): normal cognition Extrem: General: normal to inspection Objective Data Vital Signs Vital Signs: Vital Signs - 24 hr 12/27/19 09:14 12/27/19 12:00 12/27/19 14:00 Temperature 36.6 C Pulse Rate 66 60 Respiratory Rate 18 Blood Pressure 121/63 Pulse Oximetry 93 94 12/27/19 14:19 12/27/19 16:00 12/27/19 20:00 Temperature Pulse Rate 86 68 69 Respiratory Rate Blood Pressure Pulse Oximetry 12/27/19 21:11 12/27/19 21:54 12/28/19 00:00 Temperature 36.7 C Pulse Rate 68 58 L 52 L Respiratory Rate 18 Blood Pressure 108/66 Pulse Oximetry 97 12/28/19 02:00 12/28/19 04:00 12/28/19 05:41 Temperature 36.3 C L 36.4 C L Pulse Rate 66 54 L 71 Respiratory Rate 18 20 Blood Pressure 107/52 L 133/74 Pulse Oximetry 96 97 12/28/19 08:00 12/28/19 08:01 Temperature 36.6 C Pulse Rate 73 70 Respiratory Rate 18 Blood Pressure 121/78 Pulse Oximetry 97 Intake/Output Intake/Output: Intake & Output 12/25/19 12/26/19 12/27/19 12/28/19 23:59 23:59 23:59 23:59 Intake Total 1230 1620 1385 300 Output Total 099 236 8289 250 Balance 580 670 335 50 Meds/Results Medications: Active Medications Generic Name Dose Route Start Last Admin Trade Name Freq PRN Reason Stop Dose Admin Acetaminophen 650 mg 12/22/19 03:43 Tylenol Tablet PO Q4H PRN Mild Pain (1-3) or Fever Apixaban 5 mg 12/26/19 21:00 12/28/19 08:01 Eliquis PO 5 mg Q12HR NISSA Administration Artificial Tears 1 drop 12/25/19 16:02 12/26/19 17:35 Artificial Tears EACH EYE 1 drop QID PRN Administration Dry Eye(s) Buspirone HCl 10 mg 12/22/19 09:00 12/28/19 08:00 Buspar PO 10 mg BID NISSA Administration Cyanocobalamin 2,000 mcg 12/22/19 09:00 12/28/19 08:02 Vitamin B-12 Tab PO 2,000 mcg DAILY NISSA Administration Folic Acid 1 mg 12/22/19 09:00 12/28/19 08:01 Folic Acid PO 1 mg DAILY NISSA Administration Furosemide 40 mg 12/22/19 09:00 12/28/19 07:59 Lasix Tablet PO 40 mg QAM NISSA Administration Lorazepam 1 mg 12/22/19 03:19 Ativan Inj IV PUSH Q4H PRN Withdrawal Metoprolol Tartrate 50 mg 12/27/19 21:00 12/28/19 08:01 Lopressor PO 50 mg Q12HR NISSA Administration Pantoprazole Sodium 40 mg 12/22/19 09:00 12/28/19 08:00 Protonix PO 40 mg QAM NISSA
--- NOTE | 2019-12-28 11:12 | PCNWS ---
Weekly nutritional screen. Patient is tolerating current diet with adequate intake. No weight loss reported. No nutritional needs at this time.
--- NOTE | 2019-12-28 11:21 | HOMEO2EVAL ---
Home Oxygen Evaluation RC: Home Oxygen (O2) Evaluation Start: 12/27/19 21:20 Freq: ONCE Status: Active Protocol: RPE Activity Type Activity Date Activity User E-Sign Co-Sign Detail Recorded Client Recorded Date Recorded By Document 12/28/19 10:45 [email or web address] [id number] 12/28/19 11:21 SIRI Document 12/28/19 10:48 [email or web address] [email or web address] 12/28/19 11:21 SIRI Document 12/28/19 10:50 [email or web address] [email or web address] 12/28/19 11:21 SIRI Document 12/28/19 10:52 SIRI [id number] 12/28/19 11:21 SIRI Document 12/28/19 10:54 SIRI [id number] 12/28/19 11:21 SIRI Document 12/28/19 10:58 SIRI [email or web address] 12/28/19 11:21 SIRI Document 12/28/19 11:00 [email or web address] [email or web address] 12/28/19 11:21 SIRI Document 12/28/19 11:10 SIRI [email or web address] 12/28/19 11:21 SIRI 12/28/19 12/28/19 12/28/19 10:45 10:48 10:50 Home O2 Evaluation Test Phase Resting Resting Resting Oxygen Delivery Room Air Nasal Cannula Nasal Cannula Oxygen Flow Rate (L/min) 1 2 Pulse Oximetry (90-100 %) 87 L 85 L 86 L Pulse Rate (60-100 beats/min) 58 L Home Oxygen Evaluation Comments Treatment Charges O2 Evaluation 12/28/19 12/28/19 12/28/19 10:52 10:54 10:58 Home O2 Evaluation Test Phase Resting Resting Resting Oxygen Delivery Nasal Cannula Nasal Cannula Nasal Cannula Oxygen Flow Rate (L/min) 3 4 5 Pulse Oximetry (90-100 %) 86 L 87 L 93 Pulse Rate (60-100 beats/min) Home Oxygen Evaluation Comments Treatment Charges 12/28/19 12/28/19 11:00 11:10 Home O2 Evaluation Test Phase Exercise Resting Oxygen Delivery Nasal Cannula Nasal Cannula Oxygen Flow Rate (L/min) 5 5 Pulse Oximetry (90-100 %) 89 L 94 Pulse Rate (60-100 beats/min) 73 55 L Home Oxygen Evaluation Comments PT NEEDED PT REQUIRES 5 APPROX 3 AT REST AND MINUTES REST WITH ACTIVITY BEFORE HEADING BACK TO ROOM Treatment Charges
--- NOTE | 2019-12-28 11:22 | PCRCNOTE ---
HOME O2 EVAL DONE, PT HAS [facility] FOR HOME O[facility]. 5 AT REST AND WITH ACTIVITY. WILL BRING IN [facility] UPON D/C FOR TRANSPORT HOME. PT REQUESTING INOGEN. I WILL FAX OVER EVAL AND H&P TO [facility] FOR APPROVAL PROCESS.
--- NOTE | 2019-12-28 11:54 | PM.PNPUL ---
Progress Note: A&P Assessment and Plan (1) ILD (interstitial lung disease): Code(s): J84.9 - Interstitial pulmonary disease, unspecified Status: Acute Assessment and Plan: Continues to improve. - continue oral steroids now on 40 mg daily; continue for 4-6 weeks with a slow taper and transition to another immunosuppressive at that point. This can be done in our pulmonary clinic. - he is on 5 L/min at rest and with exertion, and will have an Inogen POC through [facility] for his ambulatory needs. O2 need is higher thatn prior to admission. December 25 had atrial fibrillation with rapid rate up to 140, now in atrial fib with a controlled rate in the 70s. He has recent history of SVT and underwent ablation therapy at [facility] - stop azithromycin and ceftriaxone - Blastomyces and Histoplasma antibodies are negative. Sputum is showing heavy growth of yeast which does not confirm fungal pneumonia. This indicates probable colonization with Nilda. With his ongoing prednisone dose, I will start Nystatin Swish and Swallow to reduce oral colonization. - DISCHARGE HOME, 5 L /min rest and exertion as well as sleep. follow up in the office in a week, virtual visit is adequate. Will transition to another immunosuppressive after 4-6 weeks of prednisone. Nystatin 5 ml swiah and swallow QID x 10 days - sent to [facility]. Subjective Date/time seen: 12/28/19 11:55 Interval history: Patient was seen in Room 315. Feeling better, dressed and ready to go home. Home O2 evaluation showed that he needed 5 L/min at rest and the same with exertion. Keysha has placed an order with [facility] for an Inogen portable O2 concentrator for him, and his is planning to bring tanks here for the trip home. He has exceeded expectations, improved significantly. Today is day 2 of oral steroids. discussed with Dr Hyatt. Review of Systems Review of Systems: All systems reviewed & are unremarkable except as noted in HPI and below Exam Narrative: Exam Narrative: He is sitting up in a chair dosing. On 5 liters /minute. Const: General: comfortable and no acute distress Orientation/consciousness: oriented to person, oriented to place, oriented to time and patient oriented x3 Other: Not in respiratory distress. HENMT: Mouth: Yes moist mucous membranes Neck: Neck: no JVD Resp: Auscultation: crackles (fine inspiratory crackles) and diminished lung sounds Cardio: Rate: bradycardic (rate is 65) Rhythm: regular rhythm GI: Auscultation: normal bowel sounds Skin: General skin exam: normal color Neuro: General: oriented to person, oriented to place, oriented to time and patient oriented x3 Speech: normal speech Extrem: General: no edema Objective Data Vital Signs Vital Signs: Vital Signs - 24 hr 12/27/19 12:00 12/27/19 14:00 12/27/19 14:19 Temperature 36.6 C Pulse Rate 66 60 86 Respiratory Rate 18 Blood Pressure 121/63 Pulse Oximetry 94 12/27/19 16:00 12/27/19 20:00 12/27/19 21:11 Temperature Pulse Rate 68 69 68 Respiratory Rate Blood Pressure Pulse Oximetry 12/27/19 21:54 12/28/19 00:00 12/28/19 02:00 Temperature 36.7 C 36.3 C L Pulse Rate 58 L 52 L 66 Respiratory Rate 18 18 Blood Pressure 108/66 107/52 L Pulse Oximetry 97 96 12/28/19 04:00 12/28/19 05:41 12/28/19 08:00 Temperature 36.4 C L 36.6 C Pulse Rate 54 L 71 72 Respiratory Rate 20 18 Blood Pressure 133/74 121/78 Pulse Oximetry 97 97 12/28/19 08:01 12/28/19 10:45 12/28/19 10:48 Temperature Pulse Rate 70 58 L Respiratory Rate Blood Pressure Pulse Oximetry 87 L 85 L 12/28/19 10:50 12/28/19 10:52 12/28/19 10:54 Temperature Pulse Rate Respiratory Rate Blood Pressure Pulse Oximetry 86 L 86 L 87 L 12/28/19 10:58 12/28/19 11:00 12/28/19 11:10 Temperature Pulse Rate 73 55 L Respiratory Rate Blood Pressure Pulse Oximetry 93 89 L 94 Intake/Output Intake/Output: Int
--- NOTE | 2019-12-28 16:02 | PM.DS ---
DS: Diagnosis Admitting Diagnosis Admitting Diagnosis: Acute and chronic respiratory failure with hypoxia Discharge Diagnosis (1) Pneumonia, unspecified organism: Code(s): J18.9 - Pneumonia, unspecified organism Status: Acute Assessment and Plan: Ceftriaxone, azithromycin day 5, pulmonary did not think it was infectious and antibiotics were discontinued (2) Interstitial lung disease: Code(s): J84.9 - Interstitial pulmonary disease, unspecified Status: Chronic Assessment and Plan: No definite dx due to prior deferral of bx at [facility] Pulmonology following Px poor for long chain beamer, but currently improving Discharged on prednisone 40 mg daily and will taper over 4-6 week period with pulmonology (3) Acute and chronic respiratory failure with hypoxia: Code(s): J96.21 - Acute and chronic respiratory failure with hypoxia Status: Acute Assessment and Plan: Likely due to pneumonia of undetermined etiology, perhaps ILD flare Oxygen, pulmoonary toilet, antibiotics only while here, and long chain beamer steroids on discharge 5/5 Oxygen at 5 L still (4) Alcoholism: Code(s): F10.20 - Alcohol dependence, uncomplicated Status: Chronic Assessment and Plan: No drinking for 4 months (5) Gastro-esophageal reflux disease without esophagitis: Code(s): K21.9 - Gastro-esophageal reflux disease without esophagitis Status: Chronic Assessment and Plan: Continue protonix. (6) CAD (coronary artery disease): Qualifiers: Coronary Disease-Associated Artery/Lesion type: bypass graft [place] vs. transplanted heart: [place] heart Associated angina: without angina Qualified Code(s): I25.810 - Atherosclerosis of coronary artery bypass graft(s) without angina pectoris Code(s): I25.10 - Atherosclerotic heart disease of [place] coronary artery without angina pectoris Status: Chronic Assessment and Plan: w/ acute left sided chest pain, likely pleuritic Resolved No ACS, ASA with beta-aixa (7) Paroxysmal atrial fibrillation: Code(s): I48.0 - Paroxysmal atrial fibrillation Status: Acute Assessment and Plan: Hx recent ablation procedure at [facility] 5 Episode of AFib and returned back to sinus rhythm Dr. Herzog 12/25 D/w cardiology and added apixaban 5mg PO q 12 hr Continue metoprolol DS: Summary Hospital Course Hospital Course: 79-year-old white male admitted with acute on chronic respiratory failure. Initially thought to be infectious but pulmonary with thought it was primarily interstitial lung disease. Improved with antibiotics and steroids and will to be discharged on higher doses steroids 40 daily of prednisone. Maintain saturation on 5 L. Had short episode of AFib while here and will continue on beta-aixa and Eliquis. Time Spent with Patient Time attestation: Total time spent providing and/or coordinating discharge services: 35 minutes Exam Narrative: Exam Narrative: Condition on discharge Blood pressure 120/78 pulse is 72 saturating 96% on 5 L nasal cannula at rest Lungs prolonged expiratory phase no wheezing breath sounds distant CV regular rate and rhythm no murmurs Abdomen is soft nontender Extremities 1+ edema distal pulses intact Neuro alert pleasant cooperative no focal deficits DS: Data Data Completed and Pending Labs on day of discharge: Labs from last 24 hours 12/28/19 12/28/19 05:11 05:11 WBC 11.6 H RBC 3.85 L Hgb 12.0 L Hct 36.3 L MCV 94.3 MCH 31.2 MCHC 33.1 RDW 12.5 Plt Count 161 MPV 10.9 H Sodium 134 L Potassium 4.1 Chloride 96 L Carbon Dioxide 37 H BUN 39 H Creatinine 0.90 Estim Creat Clear Calc 48 Estimated GFR > 60 Glucose 112 H Calcium 8.3 L Discharge Plan Discharge Attending physician on discharge: Albert Hyatt Consulting providers: Julián Turner ; Gilson Gallegos Discharging Clinician: Scar
== END 2019-12-28 12:15 | disposition home health service (06) | DRG 189 ==
LOC: ANHED 21:57 → ANHICU 23:25 → ANHIMU 12-23 15:46 → ANH3MEDSUR 12-27 16:16 → ANHICU 12-30 09:37 → ANHIMU 12-30 09:37
PROVIDERS: Internal Medicine; Internal Medicine Cardiovascular Disease; Internal Medicine Critical Care Medicine; Admitting Provider Family Medicine; Emergency Provider Emergency Medicine; PCP Family Medicine; Visit Provider Internal Medicine
DX: J96.21 Acute and chronic respiratory failure with hypoxia (principal); J84.9 Interstitial pulmonary disease, unspecified; I25.810 Atherosclerosis of coronary artery bypass graft(s) without angina pectoris; Z99.81 Dependence on supplemental oxygen; I48.0 Paroxysmal atrial fibrillation; F10.20 Alcohol dependence, uncomplicated; R68.89 Other general symptoms and signs; Z20.828 Contact with and (suspected) exposure to other viral communicable diseases; K21.9 Gastro-esophageal reflux disease without esophagitis; K44.9 Diaphragmatic hernia without obstruction or gangrene; Z79.899 Other long term (current) drug therapy; Z87.891 Personal history of nicotine dependence
CPT/HCPCS: 36415; 36600; 71045; 71250; 80048; 82375; 82805; 83050; 83735; 83880; 84443; 84484; 85025; 85027; 85380; 85610; 86612; 86698; 87070; 87205; 87385; 87635; 87804; 87899; 93005; 94618; 94640; 96365; 96367; 96375; 97110; 97116; 97161; 97165; 97535; 99291; A9270; J0456; J0696; J1650; J1940; J2060; J2930; J7512; U0003

== ENCOUNTER 2020-01-23 02:21 | Inpatient (IN) | payer MEDICARE, OTHER, SELFPAY ==
[2020-01-23] VITALS (25 sets, daily range): BP systolic 92–129; BP diastolic 61–81; PULSE 70–106; RESP 15–30; TEMP 36.1–37.2; O2SAT 93–100; BMI 28.3
--- NOTE | 2020-01-23 | ECHO_ITS ---
Patient Info Name: Sonny Laguerre Age: 79 years : 1940 Gender: Male Ht: 61 in Wt: 149 lbs BSA: 1.73 m2 HR: 92 bpm BP: 98 / 64 mmHg Technical Quality: Fair Exam Date: 01/23/2020 2:10 PM Exam Location: [facility] Card Pulmonary Patient Status: Inpatient Admit Date: 01/23/2020 Staff Ordering Physician: Maria Marrero MD Jet Wiper: Josefa Copeland RDCS Attending Provider: Karol Murphy DO Referring Physician: Janes CALI; Exam Type: CA echo doppler color flow Study Info Indications J81.0 - Acute pulmonary edema Complete two-dimensional, color flow and Doppler transthoracic echocardiogram is performed. Summary 1. Normal LV size, mild LVH, normal LV systolic function, ejection fraction 65-70%. Normal diastolic function. Trace MR. Aortic valve sclerosis, trileaflet aortic valve; 1.4 x 0.7 cm calcific thickening of the left coronary cusp, no significant stenosis by Doppler. Mild TR, moderate pulmonary hypertension, RVSP 48 mmHg. Left Ventricle Left ventricular chamber dimension is normal. Left ventricular systolic function is normal, estimated at 65-70%. There is mildly increased left ventricular wall thickness. Left ventricular septal wall motion is normal. The left ventricular diastolic function is normal. Right Ventricle Right ventricular chamber dimension is normal. Right ventricular systolic function is normal. Left Atria Left atrial chamber dimension is normal. Right Atria Right atrial chamber dimension is normal. Aortic Valve The aortic valve is trileaflet. There is moderate aortic valve sclerosis. There is no aortic valve stenosis. There is no aortic valve regurgitation. There is mild aortic valve calcification. Pulmonic Valve The pulmonic valve is normal. There is trace pulmonic regurgitation. Mitral Valve The mitral valve has normal leaflets. There is no mitral valve stenosis. There is trace mitral valve regurgitation. Tricuspid Valve The tricuspid valve leaflets are normal. There is mild tricuspid valve regurgitation. Moderate pulmonary hypertension, estimated pulmonary arterial systolic pressure is 48 mmHg. Pericardium/Pleural The pericardium appears normal. There is no pericardial effusion. Aorta The aortic root size at the sinus of Valsalva is normal. The prox ascending aorta size is normal. Left Ventricular Outflow Tract Name Value Normal LVOT 2D LVOT Diameter 2.1 cm LVOT Doppler LVOT Peak Gradient 5 mmHg LVOT Mean Gradient 3 mmHg LVOT VTI 22 cm LVOT VTI/AV VTI Ratio 0.7 LVOT Stroke Volume 80 ml LVOT CO 9.6 l/min LVOT CI 5.5 l/min/m2 Pulmonic Valve Name Value Normal RVOT Doppler
--- NOTE | ~2020-01-23 | XR_ITS ---
EXAMINATION: XR chest 1V portable DATE: 01/23/2020 03:36 INDICATION: Shortness of breath and cough. TECHNIQUE: A single frontal view of the chest was obtained. COMPARISON: Chest single view 12/25/2019, chest CT 12/21/2019 FINDINGS: The lung volumes are small. There are airspace and interstitial opacities throughout the shelly ngs bilaterally. No pleural effusion or pneumothorax. The heart size is obscured. Median sternotomy w ires are noted. IMPRESSION: 1. Small lung volumes with worsened diffuse lung disease, consistent with chronic interstitial lung d isease with superimposed findings of pulmonary edema versus pneumonia versus acute exacerbation of ch ronic interstitial lung disease. Reviewed, dictated and finalized at location A. IMPRESSION: 1. Small lung volumes with worsened diffuse lung disease, consistent with chron ic interstitial lung disease with superimposed findings of pulmonary edema vers us pneumonia versus acute exacerbation of chronic interstitial lung disease.
--- NOTE | ~2020-01-23 | US_ITS ---
EXAMINATION: US venous doppler UE RT EXAM DATE: 01/23/2020 15:28 INDICATION: Right arm swelling. TECHNIQUE: Multiple grayscale, color flow, Doppler sonographic images of the right upper extremity ve ins obtained by technologist. Compression was performed where able. There is no prior study for rashid [place]. FINDINGS: Right upper extremity: Jugular vein: ------------> Normal. Subclavian vein: --------> Normal. Axillary vein:------------> Normal. Brachial vein:-----------> Normal. Basilic vein: ------------> Normal. Cephalic vein: ----------> Normal. Radial vein: ------------> Normal. Ulnar vein: > Normal. IMPRESSION: No deep venous thrombosis of the right upper extremity. Reviewed, dictated and finalized at location A.
--- NOTE | ~2020-01-23 | XR_ITS ---
EXAMINATION: XR chest 1V portable DATE: 01/25/2020 05:51 INDICATION: Shortness of breath. TECHNIQUE: A single frontal view of the chest was obtained. COMPARISON: Chest single view 01/23/2020 FINDINGS: The lung volumes are small. There is relative elevation of right hemidiaphragm. There are a irspace and interstitial opacities throughout the lungs bilaterally. No pleural effusion or pneumotho rax. The heart size is obscured. Median sternotomy wires are noted. IMPRESSION: 1. 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 Reviewed, dictated and finalized at location A. IMPRESSION: 1. Small lung volumes with stable diffuse lung disease, consistent with chronic interstitial lung disease with superimposed findings of pulmonary edema versus pneumonia versus acute exacerbation of chronic interstitial lung disease.
--- NOTE | 2020-01-23 02:26 | ECG_ITS ---
Measurements Intervals [place] Rate: 75 P: ME: 0 QRS: 10 QRSD: 102 T: -12 QT: 382 QTc: 429 Interpretive Statements ATRIAL FIBRILLATION BORDERLINE ST-T WAVE ABNORMALITY- INFERIOR LEADS BASELINE WANDER- I, II, III ABNORMAL ECG Electronically Signed On 01-23-2020 7:32:19 CDT by Carlton Hunter D.O.
--- NOTE | 2020-01-23 02:26 | ED.SOB ---
HPI - SOB/Dyspnea General Chief Complaint: Shortness of Breath/Dyspnea Stated Complaint: SOB Source: RN notes reviewed History of Present Illness HPI Narrative: Patient presents emergency department from home via EMS for shortness of breath. Patient states he has a history of chronic shortness of breath but worsened today. History of interstitial lung disease as well as CHF patient is chronically on 5 L nasal cannula states he has had a cough is been nonproductive. Denies any fevers or chills chest pain abdominal pain nausea vomiting or any other symptoms Related Data Home Medications Medication Instructions Recorded Confirmed cholecalciferol (vitamin D3) 25 1,000 unit PO DAILY 07/19/19 12/22/19 mcg (1,000 unit) capsule cyanocobalamin (vitamin B-12) 2,000 mcg PO DAILY 07/19/19 12/22/19 1,000 mcg capsule folic acid 1 mg tablet 1 mg PO DAILY 07/19/19 12/22/19 thiamine HCl (vitamin B1) 100 mg 100 mg PO DAILY 07/19/19 12/22/19 tablet Allergies Allergy/AdvReac Type Severity Reaction Status Date / Time amoxicillin AdvReac Unknown Diarrhea Verified 01/04/20 09:08 Review of Systems Review of Systems: Narrative: Gen.: Denies fevers or chills Eyes: Denies eye pain or visual change ENT: Denies congestion Respiratory: Reports shortness of breath CV: Denies chest pain or palpitations GI: Denies abdominal pain nausea, emesis or diarrhea Musculoskeletal: Denies back pain or muscle pain Neuro: Denies numbness, tingling, weakness or focal weakness Skin: Denies rash Except as documented, all other systems reviewed and negative [facility] Past Medical History Medical History Abrasion, face w/o infection Acute deep vein thrombosis (DVT) of distal end of left lower extremity Alcohol abuse Alcohol dependence in remission Alcoholism Atherosclerotic heart disease of [place] coronary artery with angina pectoris Bibasilar crackles Body mass index (bmi) 26.0-26.9, adult (11/19/18) Body mass index (bmi) 29.0-29.9, adult (09/09/17) BPH with elevated PSA Bronchospasm CAD (coronary artery disease) Chronic fatigue Colon polyp Deficiency of other specified B group vitamins Dietary counseling and surveillance (07/31/16) Dorsalgia, unspecified Elevated liver enzymes Elevated prostate specific antigen (PSA) Emotional lability Encounter for immunization (06/21/18) Encounter for Medicare annual wellness exam Essential (primary) hypertension Exercise hypoxemia Falls frequently Gastro-esophageal reflux disease without esophagitis Hyperglycemia Hyperplastic polyp of descending colon Impacted cerumen of right ear Low back pain Major depressive disorder, recurrent, unspecified Major depressive disorder, single episode, unspecified Mixed hyperlipidemia MRSA (methicillin resistant staph aureus) culture positive Other dietary vitamin B12 deficiency anemia Other jail (current) drug therapy Other streptococcus as the cause of diseases classified elsewhere Overweight Oxygen dependent Paroxysmal atrial fibrillation Peripheral edema Pernicious anemia Pure hypercholesterolemia Recurrent infections Spinal stenosis, lumbar region with neurogenic claudication Steroid dependence Terminal care Vasomotor rhinitis Vitamin B12 deficiency anemia due to intrinsic factor deficiency Vitamin D deficiency, unspecified Surgical History Surgical History History of back surgery (~03/24/15) History of back surgery (~2009) History of cardiac radiofrequency ablation History of cardiac radiofrequency ablation (RFA) History of fundoplication History of lumbosacral spine surgery (~04/24/15) History of Kaela fundoplication (~1997) History of open heart surgery (~1996) S/P CABG x 3 Social History Social History Years smoked: 1 Smoking status: Former smoker Tobacco type: cigarettes Second
[2020-01-23] MEDS: ALBUTEROL SULFATE NEB 2.5 MG/0.5 ML INH 5 MG INHALATION ×2 (02:39→20:21)
[2020-01-23] MEDS: IPRATROPIUM BR 0.02% INH SOLN 0.5 MG/2.5 ML VIAL INHALATION ×3 (02:39→20:21)
[2020-01-23 03:01] LABS: Alveolar/Arterial O2 Gradient 109.4 mmHg; Base Excess ABG 8.6 mEq/l (+/-2.0); Device NASAL CANNULA; Fractional Inspired Oxygen 40 %; HCO3 ABG 33.9 mEq/l (22.0-26.0); Modified Allen's Test Pass; Oxygen Content ABG 15.6 %vol (16.0-22.0); Oxygen Saturation ABG 98.4 % (95.0-100.0); Oxyhemoglobin 97.1 % THb (90.0-100.0); PCO2 ABG 50.4 mmHg (35.0-45.0); PO2 ABG 117.8 mmHg (80.0-100.0); PO2 FiO2 Ratio Arterial Blood 2.95 %; Site Drawn RIGHT RADIAL; Total Hemoglobin 11.3 g/dL (12.0-18.0); pH ABG 7.446 (7.350-7.450)
[2020-01-23 03:26] LABS: Basophils Percent Auto 0.1 % (0.2-1.2); Eosinophils Absolute Auto 0.1 K/mm3 (0-0.3); Eosinophils Percent Auto 0.8 % (0-4.4); Hematocrit 33.4 % (42.0-52.0); Hemoglobin 10.6 g/dL (14.0-18.0); Immature Granulocyte Percent A 2.2 % (0-0.5); Lymphocytes Absolute Auto 1.54 K/mm3 (0.9-3.2); Lymphocytes Percent Auto 17.3 % (18.3-44.2); Mean Corpuscular HGB Conc 31.7 g/dl (32-36); Mean Corpuscular Hemoglobin 30.5 pg (26-34); Mean Corpuscular Volume 96.3 fl (80-100); Mean Platelet Volume 9.8 fl (7.4-10.4); Monocytes Absolute Auto 0.6 K/mm3 (0.1-0.6); Neutrophils Absolute Auto 6.5 K/mm3 (1.3-6.7); Neutrophils Percent Auto 72.6 % (45.5-73.1); Nucleated Red Blood Cells Perc 0.2 % (0.0-0.2); Platelet Count Result 122 k/mm3 (150-375); Red Blood Count 3.47 M/mm3 (4.6-6.20); Red Cell Distribution Width 13.3 % (11.5-14.5); White Blood Count 8.9 K/mm3 (4.5-10.0)
[2020-01-23 03:39] LABS: Blood Urea Nitrogen 18 mg/dL (9-20); Calcium 8.7 mg/dL (8.4-10.2); Carbon Dioxide 37 mmol/L (22-30); Chloride 97 mmol/L (98-107); Estimated CRCL calculation 43 ml/min; Estimated Glomerular Filt Rate > 60; Glucose 103 mg/dL (75-110); Potassium 3.6 mmol/L (3.4-5.0); Sodium 134 mmol/L (137-145)
[2020-01-23 03:51] LABS: NT Pro B Type Natriuretic Pept 629 PG/ML (5-100); Troponin I 0.015 ng/mL (0.000-0.034)
[2020-01-23] MEDS: FUROSEMIDE INJ 40 MG/4 ML VIAL IV PUSH ×2 (03:51→08:35)
[2020-01-23 03:54] LABS: Partial Thromboplastin Time 24.2 SECONDS (22.3-36.8); Prothrombin Time 13.1 Seconds (11.1-14.7)
--- NOTE | 2020-01-23 07:00 | ADMGEN ---
This patient, Sonny Laguerre, was admitted to Intensive Care Unit-6. Patient/family oriented to hospital policies and general routines including ID bracelet, bed and alarms, visiting hours, pain management, procedures, bathroom and other care routines, personal items, smoking policy, room service/diet, and visiting hours. Valuables list has been completed. Information on how to activate the Rapid Response Team has been discussed. Patient/Family are encouraged to report perceived risks to care and to ask questions if they do not understand what they are told or what they should do.
[2020-01-23] MEDS: IPRATROPIUM BR 0.02% INH SOLN 0.5 MG/2.5 ML VIAL (08:10)
[2020-01-23] MEDS: ALBUTEROL SULFATE NEB 2.5 MG/0.5 ML INH (08:10)
[2020-01-23] MEDS: ALBUTEROL SULFATE NEB 2.5 MG/0.5 ML INH INHALATION (08:21)
[2020-01-23 09:03] LABS: Troponin I 0.018 ng/mL (0.000-0.034)
[2020-01-23 09:29] LABS: CRP < 0.5 mg/dL (<1.0)
--- NOTE | 2020-01-23 10:30 | PM.CNPUL ---
History of Present Illness History of Present Illness Consult date: 01/23/20 Requesting physician: Andi Cazares MD Chief complaint: community -acquired pneumonia,chf Narrative: thank you for the consult please see dictation# [id number]. 1. ILD, no specific type; has had work up at [facility], no VATS; negative collagen vascular and infectious work up. has been on steroids worsening his fluid retention. 2. volume overload - mild 3. acute hypercapnic hypoxmeic resp failure - first time he has had increased pCO2, may be due to pulmonary edema 4. atrial fib with controlled rate on anticoagulation 5. remote tobacco 6. CAD, CABG x 1996 7. h/o alcohol abuse 8. shortness of breath 9. normocytic anemia - history of B12 deficiency, pernicious anemia PLAN: Diuresis; steroids for his ILD, wean O2, no need for bronchodilators. Last echo in our system is Apr 2019, will repeat this. If he has worsening L heart function his meds could be optimized. Portable O2 concentrator for use after discharge. Will follolw with berry. Guarded prognosis. d.w Dr. Cazares. [facility] Past Medical History Medical History Abrasion, face w/o infection Acute deep vein thrombosis (DVT) of distal end of left lower extremity Alcohol abuse Alcohol dependence in remission Alcoholism Atherosclerotic heart disease of [place] coronary artery with angina pectoris Bibasilar crackles Body mass index (bmi) 26.0-26.9, adult (11/19/18) Body mass index (bmi) 29.0-29.9, adult (09/09/17) BPH with elevated PSA Bronchospasm CAD (coronary artery disease) Chronic fatigue Colon polyp Deficiency of other specified B group vitamins Dietary counseling and surveillance (07/31/16) Dorsalgia, unspecified Elevated liver enzymes Elevated prostate specific antigen (PSA) Emotional lability Encounter for immunization (06/21/18) Encounter for Medicare annual wellness exam Essential (primary) hypertension Exercise hypoxemia Falls frequently Gastro-esophageal reflux disease without esophagitis Hyperglycemia Hyperplastic polyp of descending colon Impacted cerumen of right ear Low back pain Major depressive disorder, recurrent, unspecified Major depressive disorder, single episode, unspecified Mixed hyperlipidemia MRSA (methicillin resistant staph aureus) culture positive Other dietary vitamin B12 deficiency anemia Other prison (current) drug therapy Other streptococcus as the cause of diseases classified elsewhere Overweight Oxygen dependent Paroxysmal atrial fibrillation Peripheral edema Pernicious anemia Pure hypercholesterolemia Recurrent infections Spinal stenosis, lumbar region with neurogenic claudication Steroid dependence Terminal care Vasomotor rhinitis Vitamin B12 deficiency anemia due to intrinsic factor deficiency Vitamin D deficiency, unspecified Surgical History Surgical History History of back surgery (~03/24/15) History of back surgery (~2009) History of cardiac radiofrequency ablation History of cardiac radiofrequency ablation (RFA) History of fundoplication History of lumbosacral spine surgery (~04/24/15) History of Kaela fundoplication (~1997) History of open heart surgery (~1996) S/P CABG x 3 Social History Social History Years smoked: 1 Smoking status: Former smoker Tobacco type: cigarettes Second hand tobacco smoke exposure: No Smoking end date: 08/24/77 Alcohol intake: former Drinks per week: 21 Substance use: never Substance use type: does not use Gender identity (if verbalized by the patient): Male Spiritual care concerns: Yes (Evangelical) Agree to blood products: Yes Meds Home Medications and Allergies Home Medications Medication Instructions Recorded Confirmed Type cholecalciferol (vitamin D3) 25 1,000 unit PO DAILY 07/19/19 12/22/19 History mcg
[2020-01-23] MEDS: CHOLECALCIFEROL 1,000 UNIT TABLET 1000 UNITS PO (12:39)
[2020-01-23] MEDS: predniSONE 20 MG TABLET PO (12:39)
[2020-01-23 13:21] LABS: Troponin I 0.016 ng/mL (0.000-0.034)
[2020-01-23 13:25] LABS: SARS-CoV-2 RNA PCR Negative
--- NOTE | 2020-01-23 15:12 | CONS_ITS ---
DATE OF CONSULTATION: 01/23/2020 REASON FOR THE CONSULTATION: Increased shortness of breath. HISTORY: This patient is an 79-year-old man with interstitial lung disease. He was admitted with an acute exacerbation on December 21, 2019, improved with Solu-Medrol 125 mg q.6 hours for 5 days, and then was switched to prednisone daily. He has been on oxygen at home. He started using it at night, and then in August, started using it around the clock. At the last discharge, he went home on 5 L/minute. He was planning to use a portable oxygen concentrator, but this has not been able to be set up yet. His appetite has been very high, as he has been on a prednisone taper at home, currently at 20 mg a day. He wakes up at night eating fruit, bananas. Overall, he has gained weight since the last admission. He woke up suddenly this morning, not able to breathe. This improved with sitting up. He also has congestive heart failure. He has had a nonproductive cough. He has not had signs of infection such as fever, chills, sputum production. His chest x-ray showed diffuse pulmonary edema superimposed on severe underlying interstitial lung disease. He has small lung volumes. Chest x-ray is worse compared to his discharge x-ray on December 24. He has a normal white blood cell count today 8.9, H and H 10.6, hematocrit 33.4, platelets are lower 122,000. ABG today shows pH of 7.44, pCO2 of 50.4, PO2 117.8, bicarb is 33.9, saturation 97.1%. He has not had carbon dioxide retention on previous blood gases. He was COVID negative last admission. Another test was sent. He received IV Lasix 40 mg in the ER with significant diuresis. His saturation was 100% on 5 L. I lowered this to 3 L/minute. ALLERGIES: AMOXICILLIN CAUSES DIARRHEA. HOME MEDICATIONS: 1. Apixaban 5 mg q.12 hours. 2. Bupropion 150 mg b.i.d. 3. Buspirone 15 mg b.i.d. 4. Vitamin D3 1000 units daily. 5. Vitamin B12 1000 mcg 2 daily. 6. Folic acid 1 mg daily. 7. Furosemide 80 mg daily. 8. Metoprolol tartrate 50 mg q.12 hours. 9. Pantoprazole 40 mg delayed release daily. 10. Potassium chloride 40 mEq daily. 11. Prednisone was on a taper and he was on 20 mg a day. 12. Terazosin 1 mg daily. 13. Thiamin 100 mg daily. 14. Trazodone 25 mg at bedtime. PAST MEDICAL HISTORY: 1. Interstitial lung disease, specific type is not determined. He does not have features that are specifically consistent with NSIP or UIP. He has had multiple types of infections ruled out including bacterial and viral infections as well as fungal serologies as a cause of his interstitial lung disease. 2. Paroxysmal atrial fibrillation, currently on anticoagulation. 3. History of alcohol dependence, currently in remission. 4. 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 5. Hypertension. 6. Gastroesophageal reflux disease without esophagitis. 7. History of major depression. 8. Spinal stenosis. 9. Vitamin deficiencies D3, B12. 10. History of acute DVT, left lower extremity. PAST SURGICAL HISTORY: 1. Back surgery, 03/24/2015 and 2009. 2. Radiofrequency ablation. 3. History of fundoplication. 4. Lumbosacral spine surgery, 04/24/2015. 5. Kaela fundoplication, 1997. 6. CABG x3, 1996. SOCIAL HISTORY: . Quit tobacco 1977. He was a heavy drinker, has quit. FAMILY HISTORY: Sibling with hypertension. Mother , had asthma, heart disease. She at age 50. Father at 47. REVIEW OF SYSTEMS: His weight has increased recently. He was 130 when he left the hospital and is now in the 150s. He has not had fever or chills. His throat was slightly sore this morning, but he was only transient. He has not had nasal drainage. He denies dysuria. He has noticed increased edema all the way up to his thighs.
--- NOTE | 2020-01-23 16:30 | PC.NURSE ---
Pt transferred to [facility]. Report given to ODALYS RN @ [phone]. Transported via bed. Belongings checked and transfered with patient.
--- NOTE | 2020-01-23 17:07 | PM.IMHP ---
H&P: HPI History of Present Illness Chief complaint: community -acquired pneumonia,chf Narrative: Sonny Laguerre is a 79 year old male with history of severe COPD chronic respiratory failure on home oxygen 5 L and patient was recently discharged on tapering dose of prednisone he presented emergency department with a complaint of shortness of breath he also has a history of diastolic dysfunction, emergency department patient was given IV Lasix 40 mg however he was still quite short of breath we gave him another dose of IV Lasix 40 mg this has improved his symptoms, continued patient on DuoNeb, concerned patient may have COVID-19 a low-dose of steroid was continue 20 mg q.day, patient was seen by Dr. Marrero wildlife conservationist I discussed the case with her who had seen the patient, patient was doing well and improving, currently patient is in ICU a nasal cannula, I spoke with the patient's on telephone for from outside his room, he is feeling much better compared today when he arrived not a short of breath, currently denies any chest pain shortness of breath palpitation fever chills he does complaint right arm being swallen compared to left and slightly painful. To further evaluate patient had a Doppler of right upper extremity is negative for DVT. Review of Systems Review of Systems: All systems reviewed & are unremarkable except as noted in HPI and below PMFSH Past Medical History Medical History Abrasion, face w/o infection Acute deep vein thrombosis (DVT) of distal end of left lower extremity Alcohol abuse Alcohol dependence in remission Alcoholism Atherosclerotic heart disease of [place] coronary artery with angina pectoris Bibasilar crackles Body mass index (bmi) 26.0-26.9, adult (11/19/18) Body mass index (bmi) 29.0-29.9, adult (09/09/17) BPH with elevated PSA Bronchospasm CAD (coronary artery disease) Chronic fatigue Colon polyp Deficiency of other specified B group vitamins Dietary counseling and surveillance (07/31/16) Dorsalgia, unspecified Elevated liver enzymes Elevated prostate specific antigen (PSA) Emotional lability Encounter for immunization (06/21/18) Encounter for Medicare annual wellness exam Essential (primary) hypertension Exercise hypoxemia Falls frequently Gastro-esophageal reflux disease without esophagitis Hyperglycemia Hyperplastic polyp of descending colon Impacted cerumen of right ear Low back pain Major depressive disorder, recurrent, unspecified Major depressive disorder, single episode, unspecified Mixed hyperlipidemia MRSA (methicillin resistant staph aureus) culture positive Other dietary vitamin B12 deficiency anemia Other [facility] [employer] (current) drug therapy Other streptococcus as the cause of diseases classified elsewhere Overweight Oxygen dependent Paroxysmal atrial fibrillation Peripheral edema Pernicious anemia Pure hypercholesterolemia Recurrent infections Spinal stenosis, lumbar region with neurogenic claudication Steroid dependence Terminal care Vasomotor rhinitis Vitamin B12 deficiency anemia due to intrinsic factor deficiency Vitamin D deficiency, unspecified Surgical History Surgical History History of back surgery (~03/24/15) History of back surgery (~2009) History of cardiac radiofrequency ablation History of cardiac radiofrequency ablation (RFA) History of fundoplication History of lumbosacral spine surgery (~04/24/15) History of Kaela fundoplication (~1997) History of open heart surgery (~1996) S/P CABG x 3 Social History Social History Years smoked: 1 Smoking status: Former smoker Tobacco type: cigarettes Second hand tobacco smoke exposure: No Smoking end date: 08/24/77 Alcohol intake: former Drinks per week: 21 Substance use: never Substance use type: does not use Gender identity (if verbalized by t
[2020-01-23] MEDS: busPIRone HCL 5 MG TABLET 15 MG PO (20:38)
[2020-01-23] MEDS: METOPROLOL TARTRATE 50 MG TAB PO (20:39)
[2020-01-23] MEDS: APIXABAN 5 MG TABLET PO (20:39)
[2020-01-24] VITALS (29 sets, daily range): BP systolic 86–142; BP diastolic 46–73; PULSE 66–110; RESP 12–30; TEMP 36.2–36.7; O2SAT 94–100
[2020-01-24] MEDS: ALBUTEROL SULFATE NEB 2.5 MG/0.5 ML INH 5 MG INHALATION ×6 (01:12→23:21)
[2020-01-24] MEDS: IPRATROPIUM BR 0.02% INH SOLN 0.5 MG/2.5 ML VIAL INHALATION ×6 (01:12→23:21)
[2020-01-24 04:39] LABS: Basophils Percent Auto 0.1 % (0.2-1.2); Eosinophils Absolute Auto 0.1 K/mm3 (0-0.3); Eosinophils Percent Auto 0.8 % (0-4.4); Hematocrit 33.5 % (42.0-52.0); Hemoglobin 10.6 g/dL (14.0-18.0); Immature Granulocyte Absolute 0.11 K/mm3 (0.00-0.031); Immature Granulocyte Percent A 1.3 % (0-0.5); Lymphocytes Absolute Auto 1.38 K/mm3 (0.9-3.2); Lymphocytes Percent Auto 16.7 % (18.3-44.2); Mean Corpuscular HGB Conc 31.6 g/dl (32-36); Mean Corpuscular Hemoglobin 30.3 pg (26-34); Mean Corpuscular Volume 95.7 fl (80-100); Mean Platelet Volume 9.9 fl (7.4-10.4); Monocytes Absolute Auto 0.5 K/mm3 (0.1-0.6); Neutrophils Absolute Auto 6.2 K/mm3 (1.3-6.7); Neutrophils Percent Auto 75.1 % (45.5-73.1); Platelet Count Result 124 k/mm3 (150-375); Red Cell Distribution Width 13.3 % (11.5-14.5); White Blood Count 8.3 K/mm3 (4.5-10.0)
[2020-01-24 04:54] LABS: Blood Urea Nitrogen 15 mg/dL (9-20); CRP 0.5 mg/dL (<1.0); Calcium 8.5 mg/dL (8.4-10.2); Carbon Dioxide 39 mmol/L (22-30); Chloride 95 mmol/L (98-107); Estimated CRCL calculation 54 ml/min; Estimated Glomerular Filt Rate > 60; Glucose 86 mg/dL (75-110); Potassium 3.5 mmol/L (3.4-5.0); Sodium 135 mmol/L (137-145)
[2020-01-24] MEDS: FOLIC ACID 1 MG TABLET PO (08:46)
[2020-01-24] MEDS: predniSONE 20 MG TABLET PO (08:47)
[2020-01-24] MEDS: busPIRone HCL 5 MG TABLET 15 MG PO ×2 (08:47→20:37)
[2020-01-24] MEDS: CHOLECALCIFEROL 1,000 UNIT TABLET 1000 UNITS PO (08:49)
[2020-01-24] MEDS: CYANOCOBALAMIN 1,000 MCG TABLET 2000 MCG PO (08:50)
[2020-01-24] MEDS: APIXABAN 5 MG TABLET PO ×2 (08:50→20:37)
[2020-01-24] MEDS: METOPROLOL TARTRATE 50 MG TAB PO ×2 (08:51→20:37)
[2020-01-24] MEDS: FUROSEMIDE 80 MG TABLET PO (08:51)
[2020-01-24] MEDS: PANTOPRAZOLE 40 MG TABLET PO (08:52)
[2020-01-24] MEDS: POTASSIUM CHLORIDE 20 MEQ PACKET (FOR LIQUID) 40 MEQ PO (08:55)
[2020-01-24] MEDS: THIAMINE HCL 100 MG TABLET PO (08:55)
--- NOTE | 2020-01-24 14:56 | PM.IMPN ---
Progress Note: A&P Assessment and Plan (1) Acute and chronic respiratory failure with hypoxia: Code(s): J96.21 - Acute and chronic respiratory failure with hypoxia Status: Acute Assessment and Plan: Shade is a 79 year old male with history of severe COPD chronic respiratory failure on home oxygen 5 L and patient was recently discharged on tapering dose of prednisone he presented emergency department with a complaint of shortness of breath he also has a history of diastolic dysfunction, intersitial lung disease with pneumonia. pt had a recent admission. pt is found to be covid negative. Pt is getting better, pt is now on 3 liters of oxygen. Pt gets palpitations when he walks PAF. Seen by cardiology and pulmology. I will rpt CXR swapna am continue imu and telemetry today. COVID is negative. (2) Community acquired pneumonia: Code(s): J18.9 - Pneumonia, unspecified organism Status: Acute Assessment and Plan: Pt is on IV Rocephin azithromycin, oxygen 3 liters. (3) CHF (congestive heart failure): Code(s): I50.9 - Heart failure, unspecified Status: Acute Assessment and Plan: Patient with history of diastolic dysfunction grade 1, pt transitioned from iv lasix to oral lasix (4) Paroxysmal atrial fibrillation: Code(s): I48.0 - Paroxysmal atrial fibrillation Status: Acute Assessment and Plan: Patient rate is controlled anticoagulated with Eliquis Subjective Date/time seen: 01/24/20 14:56 Interval history: Shade is a 79 year old male with history of severe COPD chronic respiratory failure on home oxygen 5 L and patient was recently discharged on tapering dose of prednisone he presented emergency department with a complaint of shortness of breath he also has a history of diastolic dysfunction, intersitial lung disease with pneumomia. pt had a recent admission. pt is found to be covid negative. Pt is getting better, pt is now on 3 liters of oxygen. Pt gets palpitations when he walks PAF. Seen by cardiology and pulmology. I will rpt CXR swapna am continue imu and telemetry today. Review of Systems Cardiovascular: Cardiovascular: Denies chest pain Respiratory: Respiratory: Reports chest congestion, Reports cough, Reports dyspnea, Reports dyspnea on exertion and Reports wheezing Exam Const: General: comfortable and no acute distress Resp: Effort & Inspection: normal respiratory effort and other (fine crackles present ) Skin: General skin exam: normal color Neuro: Speech: normal speech Extrem: General: normal to inspection Psych: Affect: Anxious affect present Objective Data Vital Signs Vital Signs: Vital Signs - 24 hr 01/23/20 16:00 01/23/20 18:00 01/23/20 19:41 Temperature 37.0 C 36.1 C L Pulse Rate 85 89 89 Respiratory Rate 19 20 Blood Pressure 92/61 L 100/68 Pulse Oximetry 97 96 01/23/20 20:00 01/23/20 20:21 01/23/20 20:34 Temperature Pulse Rate 89 101 H 103 H Respiratory Rate 24 H 24 H Blood Pressure Pulse Oximetry 93 01/23/20 20:39 01/23/20 22:00 01/23/20 23:24 Temperature 36.6 C Pulse Rate 106 H 82 70 Respiratory Rate 20 Blood Pressure 110/69 Pulse Oximetry 99 01/24/20 00:00 01/24/20 01:12 01/24/20 01:20 Temperature Pulse Rate 75 74 79 Respiratory Rate 26 H 30 H Blood Pressure Pulse Oximetry 01/24/20 01:59 01/24/20 04:00 01/24/20 04:14 Temperature 36.4 C Pulse Rate 72 75 75 Respiratory Rate 20 24 H Blood Pressure 86/57 L Pulse Oximetry 100 01/24/20 04:23 01/24/20 06:00 01/24/20 08:00 Temperature 36.2 C L Pulse Rate 71 86 89 Respiratory Rate 24 H 12 Blood Pressure 142/73 H Pulse Oximetry 99 01/24/20 08:51 01/24/20 09:00 01/24/20 09:11 Temperature Pulse Rate 106 H 69 89 Respiratory Rate 20 20 Blood Pressure Pulse Oximetry 94 01/24/20 10:00 01/24/20 11:50 01/24/20 12:30 Temperature 36.2 C L Pulse Rate 75 70 79 Respiratory Rate 12
[2020-01-24 17:05] LABS: Magnesium 2.1 mg/dL (1.6-2.3)
--- NOTE | 2020-01-24 17:55 | PM.PNPUL ---
Progress Note: A&P Assessment and Plan (1) Acute and chronic respiratory failure with hypoxia: Code(s): J96.21 - Acute and chronic respiratory failure with hypoxia Status: Acute Assessment and Plan: Acute respiratory failure with mild hypercapnia superimprosed on chronic hypoxemic respiratory failure on O2 prior to this admission due to ILD, with worsening due to volume overload. He responded well to the 40 mg of Lasix IV in the ED, and is on IV bid now. He is now on less O2, 3 L/min, was on O5 L/min at home before this admission. (2) ILD (interstitial lung disease): Code(s): J84.9 - Interstitial pulmonary disease, unspecified Status: Acute Assessment and Plan: He has interstitial lung disease, type is not specifically identified yet. He had a workup at [facility] earlier this year, but refused a VATS lung biopsy for unclear reasons. He was planning to have a second opinion at [facility], but with COVID, he could not do this electively. His picture is not consistent with the usual presentation for nonspecific interstitial pneumonia or UIP. He has had negative autoimmune antibodies at [facility]. His bacterial and viral studies were also negative. 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 At the last discharge early December, he was on a prednisone taper, but this likely pushed him over the edge as far as fluid retention and it certainly worsened his hunger and added to his weight gain. Continue to wean his oxygen and oral steroids. (3) Oxygen dependent: Code(s): Z99.81 - Dependence on supplemental oxygen Status: Chronic Assessment and Plan: Has been on O2 at home, initially at night, and since 2019 has been on it around the clock. At last discharge in December he went home on 5 L/min, now is doing well on 3 L/min, lower O2 requirement, improving. Portable O2 Concentrator which needs to be arranged through our office, efforts now in progress He dislikes tanks, which is common. There are windows of opportunity for initiating POC and the [employer] has to be one that can provide this item. He told me that this was being arranged at the last discharge, so I didn't get involved. (4) CHF (congestive heart failure): Code(s): I50.9 - Heart failure, unspecified Status: Acute Assessment and Plan: New echo Jan 22 : Normal LV size, mild LVH, normal LV systolic function, ejection fraction 65-70%. Normal diastolic function. Trace MR. Aortic valve sclerosis, trileaflet aortic valve; 1.4 x 0.7 cm calcific thickening of the left coronary cusp, no significant stenosis by Doppler. Mild TR, moderate pulmonary hypertension, RVSP 48 mmHg. (5) Pulmonary edema: Qualifiers: Chronicity: acute Qualified Code(s): J81.0 - Acute pulmonary edema Code(s): J81.1 - Chronic pulmonary edema Status: Acute Assessment and Plan: proBNP is 629 and although this is modest for his age at higher than it has been on prior admissions. Last echo in the system, April 26, 2019 showed normal left ventricular systolic function. No wall motion abnormality. EF 68%. Mild enlargement of left atrium. Mild mitral regurgitation. Normal right atrial pressure. New echo January 22 now shows moderate pulmmonary hypertension RVSP 48 mmHg, not mentioned o nthe prior echo Apr 26. Otherwise, findings are similar. (6) Paroxysmal atrial fibrillation: Code(s): I48.0 - Paroxysmal atrial fibrillation Status: Acute Assessment and Plan: Atrial fibrillation. Currently, the rate is controlled. He jayashree
[2020-01-24] MEDS: TERAZOSIN HCL 1 MG CAPSULE PO (20:38)
[2020-01-25] VITALS (22 sets, daily range): BP systolic 101–127; BP diastolic 59–71; PULSE 68–105; RESP 12–24; TEMP 35.8–36.8; O2SAT 89–100
[2020-01-25 04:37] LABS: Basophils Percent Auto 0.3 % (0.2-1.2); Eosinophils Absolute Auto 0.1 K/mm3 (0-0.3); Eosinophils Percent Auto 1.3 % (0-4.4); Hematocrit 31.6 % (42.0-52.0); Hemoglobin 10.1 g/dL (14.0-18.0); Immature Granulocyte Absolute 0.13 K/mm3 (0.00-0.031); Immature Granulocyte Percent A 1.7 % (0-0.5); Lymphocytes Absolute Auto 1.22 K/mm3 (0.9-3.2); Lymphocytes Percent Auto 15.6 % (18.3-44.2); Mean Corpuscular Hemoglobin 30.1 pg (26-34); Monocytes Absolute Auto 0.5 K/mm3 (0.1-0.6); Monocytes Percent Auto 6.4 % (2.6-8.5); Neutrophils Absolute Auto 5.9 K/mm3 (1.3-6.7); Neutrophils Percent Auto 74.7 % (45.5-73.1); Platelet Count Result 119 k/mm3 (150-375); Red Blood Count 3.36 M/mm3 (4.6-6.20); Red Cell Distribution Width 13.2 % (11.5-14.5); White Blood Count 7.8 K/mm3 (4.5-10.0)
[2020-01-25 04:51] LABS: Blood Urea Nitrogen 15 mg/dL (9-20); CRP 0.7 mg/dL (<1.0); Calcium 8.3 mg/dL (8.4-10.2); Carbon Dioxide 39 mmol/L (22-30); Chloride 96 mmol/L (98-107); Estimated CRCL calculation 49 ml/min; Estimated Glomerular Filt Rate > 60; Glucose 71 mg/dL (75-110); Potassium 3.5 mmol/L (3.4-5.0); Sodium 134 mmol/L (137-145)
[2020-01-25] MEDS: FOLIC ACID 1 MG TABLET PO (08:05)
[2020-01-25] MEDS: busPIRone HCL 5 MG TABLET 15 MG PO ×2 (08:05→20:23)
[2020-01-25] MEDS: METOPROLOL TARTRATE 50 MG TAB PO ×2 (08:06→20:24)
[2020-01-25] MEDS: CHOLECALCIFEROL 1,000 UNIT TABLET 1000 UNITS PO (08:06)
[2020-01-25] MEDS: FUROSEMIDE 80 MG TABLET PO (08:06)
[2020-01-25] MEDS: predniSONE 20 MG TABLET PO (08:06)
[2020-01-25] MEDS: THIAMINE HCL 100 MG TABLET PO (08:06)
[2020-01-25] MEDS: APIXABAN 5 MG TABLET PO ×2 (08:06→20:24)
[2020-01-25] MEDS: PANTOPRAZOLE 40 MG TABLET PO (08:06)
[2020-01-25] MEDS: POTASSIUM CHLORIDE 20 MEQ PACKET (FOR LIQUID) 40 MEQ PO (08:06)
[2020-01-25] MEDS: CYANOCOBALAMIN 1,000 MCG TABLET 2000 MCG PO (08:06)
[2020-01-25] MEDS: ALBUTEROL SULFATE NEB 2.5 MG/0.5 ML INH 5 MG INHALATION ×4 (08:36→20:54)
[2020-01-25] MEDS: IPRATROPIUM BR 0.02% INH SOLN 0.5 MG/2.5 ML VIAL INHALATION ×4 (08:36→20:54)
--- NOTE | 2020-01-25 11:53 | PM.IMPN ---
Progress Note: A&P Assessment and Plan (1) Acute and chronic respiratory failure with hypoxia: Code(s): J96.21 - Acute and chronic respiratory failure with hypoxia Status: Acute Assessment and Plan: Shade is a 79 year old male with history of severe COPD chronic respiratory failure on home oxygen 5 L and patient was recently discharged on tapering dose of prednisone he presented emergency department with a complaint of shortness of breath he also has a history of diastolic dysfunction, intersitial lung disease with pneumonia. pt had a recent admission. pt is found to be covid negative. Pt is getting better, pt is now on 3 liters of oxygen. COVID is negative. Cxr still shows pulmonary edema versus pneumonia versus acute exacerbation of chronic interstitial lung disease. Pt seen by pulmology, pt will need to have CONTINUOUS HOME OXYGEN. PACs likely due to hypoxia. Hopeful discharge in 1-2 days time. (2) Community acquired pneumonia: Code(s): J18.9 - Pneumonia, unspecified organism Status: Acute Assessment and Plan: Pt is on IV Rocephin azithromycin, oxygen 3 liters. BC negative to date, yeast grown in sputum cover with diflucan. (3) CHF (congestive heart failure): Code(s): I50.9 - Heart failure, unspecified Status: Acute Assessment and Plan: Patient with history of diastolic dysfunction grade 1, pt transitioned from iv lasix to oral lasix (4) Paroxysmal atrial fibrillation: Code(s): I48.0 - Paroxysmal atrial fibrillation Status: Acute Assessment and Plan: Patient rate is controlled anticoagulated with Eliquis Subjective Date/time seen: 01/25/20 11:53 Interval history: Shade is a 79 year old male with history of severe COPD chronic respiratory failure on home oxygen 5 L and patient was recently discharged on tapering dose of prednisone he presented emergency department with a complaint of shortness of breath he also has a history of diastolic dysfunction, intersitial lung disease with pneumonia. pt had a recent admission. pt is found to be covid negative. Pt is getting better, pt is now on 3 liters of oxygen. Pt gets palpitations when he walks EKG shows PACs EKG reviewed by cardiology.Cardiology not offically consulted. Cxr still shows pulmonary edema versus pneumonia versus acute exacerbation of chronic interstitial lung disease. Review of Systems Review of Systems: All systems reviewed & are unremarkable except as noted in HPI and below Cardiovascular: Cardiovascular: Denies chest pain, Reports dyspnea and Reports dyspnea on exertion Respiratory: Respiratory: Reports chest congestion, Reports cough, Reports dyspnea, Reports dyspnea on exertion and Reports wheezing Allergic/Immunologic: Allergic/Immunologic: Reports wheezing Exam Const: General: comfortable and no acute distress Resp: Effort & Inspection: normal respiratory effort and other (fine crackles present ) Skin: General skin exam: normal color Neuro: Speech: normal speech Extrem: General: normal to inspection Psych: Affect: Anxious affect present Objective Data Vital Signs Vital Signs: Vital Signs - 24 hr 01/24/20 12:30 01/24/20 14:00 01/24/20 14:01 Temperature Pulse Rate 79 80 68 Respiratory Rate 20 Blood Pressure Pulse Oximetry 01/24/20 14:12 01/24/20 16:00 01/24/20 18:00 Temperature 36.5 C Pulse Rate 72 74 86 Respiratory Rate 20 12 Blood Pressure 99/65 L Pulse Oximetry 97 01/24/20 19:06 01/24/20 19:14 01/24/20 19:55 Temperature 36.7 C Pulse Rate 80 76 84 Respiratory Rate 18 20 20 Blood Pressure 108/58 L Pulse Oximetry 95 95 01/24/20 20:00 01/24/20 20:37 01/24/20 22:00 Temperature Pulse Rate 98 110 H 79 Respiratory Rate 20 Blood Pressure Pulse Oximetry 95 01/24/20 23:14 01/24/20 23:23 01/24/20 23:29 Temperature 36.7 C Pulse Rate 85 70 66 Respiratory Rate 20 20 20 Blood Pressure 109/46 L Pulse Oxim
[2020-01-25] MEDS: FLUCONAZOLE 100 MG TABLET PO (14:23)
--- NOTE | 2020-01-25 16:53 | PM.PNPUL ---
Progress Note: A&P Assessment and Plan (1) Acute and chronic respiratory failure with hypoxia: Code(s): J96.21 - Acute and chronic respiratory failure with hypoxia Status: Acute Assessment and Plan: Acute respiratory failure with mild hypercapnia superimprosed on chronic hypoxemic respiratory failure on O2 prior to this admission due to ILD, with worsening due to volume overload. He responded well to the 40 mg of Lasix IV in the ED, and is on his usual home dose Lasix 80 mg po once a day, less O2, 3 L/min, was on O5 L/min at home before this admission. I am going to add Lasix 40 mg IV now to increase his diuresis. His weight has increased since admission, still had pitting edema in his thighs, BUN and creatinine 115 / 0.9 so he can tolerate more diuresis. CXR still has diffuse changes. It will not be possible to determine how much of the radiographic abonrmality is due to pulmonary edema vs progression of the ILD; diuresing is appropriate. - IV Lasix 40 mg now -physical therapy -decreased O2 2 L/min at rest; home O2 evaluation in the am -he is more likely to qualify for port O2 concentrator on lower O2 flow, so weaning O2 is strongly encouraged -more anxiolytics with caution as far as Xanax with tolerance and respiratory depression. (2) ILD (interstitial lung disease): Code(s): J84.9 - Interstitial pulmonary disease, unspecified Status: Acute Assessment and Plan: He has interstitial lung disease, type is not specifically identified. [facility] evaluation was early 2019; patient refused a VATS lung biopsy. A second opinion at [facility] never launched wit hpandemic. His picture is not consistent with the usual presentation for NSIP or UIP. He has had negative autoimmune antibodies at [facility], (-) bacterial and viral studies. 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 When discharged December 27, he was on a prednisone 40 mg a day which caused fluid retention, increased weight gain. Will continue to wean his oxygen and oral steroids. (3) Oxygen dependent: Code(s): Z99.81 - Dependence on supplemental oxygen Status: Chronic Assessment and Plan: Has been on O2 at home, initially at night, and since 2019 has been on it around the clock. At last discharge in December he went home on 5 L/min, now is doing well on 3 L/min, lower O2 requirement, improving. Portable O2 Concentrator which needs to be arranged through our office, efforts now in progress He dislikes oxygen tanks, which is common. (4) Pulmonary edema: Qualifiers: Chronicity: acute Qualified Code(s): J81.0 - Acute pulmonary edema Code(s): J81.1 - Chronic pulmonary edema Status: Acute Assessment and Plan: proBNP is 629 and although this is modest for his age at higher than it has been on prior admissions. Last echo in the system, April 26, 2019 showed normal left ventricular systolic function. No wall motion abnormality. EF 68%. Mild enlargement of left atrium. Mild mitral regurgitation. Normal right atrial pressure. New echo January 22 now shows moderate pulmmonary hypertension RVSP 48 mmHg, not mentioned on the prior echo Apr 26. Otherwise, findings are similar. (5) Paroxysmal atrial fibrillation: Code(s): I48.0 - Paroxysmal atrial fibrillation Status: Acute Assessment and Plan: Had an ablation, now in sinus. Subjective Date/time seen: 01/25/20 16:53 This 79 yo man is seen in follow up for COPD, chronic respiratory failure on O2, ILD, admitted with increased shortness of breath, responded to Lasix 40 mg IV, O2 has been weaned to 3 L/min 2 da
[2020-01-25] MEDS: FUROSEMIDE INJ 40 MG/4 ML VIAL IV PUSH (17:43)
--- NOTE | 2020-01-25 18:46 | PC.NURSE ---
Pt transferred to [facility] via wheelchair. Belongings list checked and all items sent with patient. Oxygen on and traveled with no difficulties noted. Report given to Teresa Silva RN @ [phone]
[2020-01-25] MEDS: ALPRAZOLAM 0.25 MG TABLET PO (20:23)
[2020-01-25] MEDS: TERAZOSIN HCL 1 MG CAPSULE PO (20:24)
[2020-01-26] VITALS (18 sets, daily range): BP systolic 92–120; BP diastolic 56–69; PULSE 67–94; RESP 18–22; TEMP 36.4–37.3; O2SAT 92–98
[2020-01-26] MEDS: ALBUTEROL SULFATE NEB 2.5 MG/0.5 ML INH 5 MG INHALATION ×6 (00:28→20:45)
[2020-01-26] MEDS: IPRATROPIUM BR 0.02% INH SOLN 0.5 MG/2.5 ML VIAL INHALATION ×6 (00:28→20:45)
[2020-01-26 06:28] LABS: Basophils Percent Auto 0.3 % (0.2-1.2); Eosinophils Absolute Auto 0.1 K/mm3 (0-0.3); Eosinophils Percent Auto 1.5 % (0-4.4); Hematocrit 32.9 % (42.0-52.0); Hemoglobin 10.5 g/dL (14.0-18.0); Immature Granulocyte Absolute 0.15 K/mm3 (0.00-0.031); Immature Granulocyte Percent A 1.7 % (0-0.5); Lymphocytes Absolute Auto 1.29 K/mm3 (0.9-3.2); Mean Corpuscular HGB Conc 31.9 g/dl (32-36); Mean Corpuscular Hemoglobin 30.6 pg (26-34); Mean Corpuscular Volume 95.9 fl (80-100); Mean Platelet Volume 10.4 fl (7.4-10.4); Monocytes Absolute Auto 0.5 K/mm3 (0.1-0.6); Monocytes Percent Auto 5.4 % (2.6-8.5); Neutrophils Absolute Auto 6.5 K/mm3 (1.3-6.7); Neutrophils Percent Auto 76.1 % (45.5-73.1); Platelet Count Result 134 k/mm3 (150-375); Red Blood Count 3.43 M/mm3 (4.6-6.20); Red Cell Distribution Width 13.4 % (11.5-14.5); White Blood Count 8.6 K/mm3 (4.5-10.0)
[2020-01-26 06:41] LABS: Blood Urea Nitrogen 14 mg/dL (9-20); CRP 1.1 mg/dL (<1.0); Calcium 8.3 mg/dL (8.4-10.2); Carbon Dioxide > 40 mmol/L (22-30); Chloride 96 mmol/L (98-107); Estimated CRCL calculation 44 ml/min; Estimated Glomerular Filt Rate > 60; Glucose 79 mg/dL (75-110); Potassium 3.4 mmol/L (3.4-5.0); Sodium 136 mmol/L (137-145)
[2020-01-26] MEDS: THIAMINE HCL 100 MG TABLET PO (08:00)
[2020-01-26] MEDS: FOLIC ACID 1 MG TABLET PO (08:00)
[2020-01-26] MEDS: CHOLECALCIFEROL 1,000 UNIT TABLET 1000 UNITS PO (08:01)
[2020-01-26] MEDS: predniSONE 20 MG TABLET PO (08:01)
[2020-01-26] MEDS: CYANOCOBALAMIN 1,000 MCG TABLET 2000 MCG PO (08:01)
[2020-01-26] MEDS: METOPROLOL TARTRATE 50 MG TAB PO ×2 (08:02→20:27)
[2020-01-26] MEDS: PANTOPRAZOLE 40 MG TABLET PO (08:03)
[2020-01-26] MEDS: FUROSEMIDE 80 MG TABLET PO (08:03)
[2020-01-26] MEDS: busPIRone HCL 5 MG TABLET 15 MG PO ×2 (08:04→20:29)
[2020-01-26] MEDS: APIXABAN 5 MG TABLET PO ×2 (08:05→20:28)
[2020-01-26] MEDS: POTASSIUM CHLORIDE 20 MEQ PACKET (FOR LIQUID) 40 MEQ PO (08:06)
--- NOTE | 2020-01-26 11:42 | P.CDI_ITS ---
CDI Query Clarification Request - Diastolic CHF has been documented - BNP 629 - Increased edema all the way up to his thighs has been documented. - Lasix 40mg IV given times two on 01/22 and once on 01/24 Please clarify acuity of diastolic CHF: * Acute * Chronic * Acute on Chronic * unable to determine <Cate Howell RN - Last Filed: 01/26/20 11:49> Acute on chronic diastolic CHF <Yamilet Dave MD - Last Filed: 01/27/20 18:57>
--- NOTE | 2020-01-26 16:59 | PM.IMPN ---
Progress Note: A&P Assessment and Plan (1) Acute and chronic respiratory failure with hypoxia: Code(s): J96.21 - Acute and chronic respiratory failure with hypoxia Status: Acute Assessment and Plan: Shade is a 79 year old male with history of severe COPD chronic respiratory failure on home oxygen 5 L and patient was recently discharged on tapering dose of prednisone he presented emergency department with a complaint of shortness of breath he also has a history of diastolic dysfunction, intersitial lung disease with pneumonia. pt had a recent admission. pt is found to be covid negative. Pt is getting better, pt is now on 3 liters of oxygen. COVID is negative. Cxr still shows pulmonary edema versus pneumonia versus acute exacerbation of chronic interstitial lung disease. Pt seen by pulmology, pt will need to have CONTINUOUS HOME OXYGEN. PACs likely due to hypoxia. Hopeful discharge swapna. (2) Community acquired pneumonia: Code(s): J18.9 - Pneumonia, unspecified organism Status: Acute Assessment and Plan: Pt is on IV Rocephin azithromycin, oxygen 3 liters. BC negative to date, yeast grown in sputum cover with diflucan. (3) CHF (congestive heart failure): Code(s): I50.9 - Heart failure, unspecified Status: Acute Assessment and Plan: Patient with history of diastolic dysfunction grade 1, pt transitioned from iv lasix to oral lasix (4) Paroxysmal atrial fibrillation: Code(s): I48.0 - Paroxysmal atrial fibrillation Status: Acute Assessment and Plan: Patient rate is controlled anticoagulated with Eliquis Subjective Date/time seen: 01/26/20 16:59 Interval history: Shade is a 79 year old male with history of severe COPD chronic respiratory failure on home oxygen 5 L and patient was recently discharged on tapering dose of prednisone he presented emergency department with a complaint of shortness of breath he also has a history of diastolic dysfunction, intersitial lung disease with pneumonia. pt had a recent admission. pt is found to be covid negative. Pt is getting better, pt is now on 3 liters of oxygen. Pt gets palpitations when he walks EKG shows PACs EKG reviewed by cardiology.Cardiology not offically consulted. Cxr still shows pulmonary edema versus pneumonia versus acute exacerbation of chronic interstitial lung disease. Pt improving down to 2 liters, complains of red sore tongue Review of Systems Review of Systems: All systems reviewed & are unremarkable except as noted in HPI and below Constitutional: Comments: Red sore tongue Cardiovascular: Cardiovascular: Denies chest pain, Reports dyspnea and Reports dyspnea on exertion Exam Const: General: comfortable and no acute distress HENMT: Other: red cracked tongue Resp: Effort & Inspection: normal respiratory effort and other (fine crackles present ) Skin: General skin exam: normal color Neuro: Speech: normal speech Extrem: General: normal to inspection Psych: Affect: Anxious affect present Objective Data Vital Signs Vital Signs: Vital Signs - 24 hr 01/25/20 17:08 01/25/20 17:20 01/25/20 18:45 Temperature 36.8 C Pulse Rate 77 72 82 Pulse Rate [At Rest Prior to Therapy Session] Pulse Rate [With Activity During Therapy Session] Respiratory Rate 20 20 24 H Blood Pressure 102/61 Pulse Oximetry 89 L Pulse Oximetry [At Rest Prior to Therapy Session] Pulse Oximetry [With Activity During Therapy Session] 01/25/20 20:23 01/25/20 20:24 01/25/20 20:54 Temperature Pulse Rate 82 88 91 Pulse Rate [At Rest Prior to Therapy Session] Pulse Rate [With Activity During Therapy Session] Respiratory Rate 22 H Blood Pressure 103/62 Pulse Oximetry 92 92 Pulse Oximetry [At Rest Prior to Therapy Session] Pulse Oximetry [With Activity During Therapy Session] 01/25/20 21:04 01/25/20 22:00 01/26/20 00:28 Temperature 36.6 C Pulse Rate 87 83 82 Pulse Rate
[2020-01-26] MEDS: NYSTATIN 100,000 UNITS/ML SUSP 5 ML ORAL.SUSP PO (19:14)
--- NOTE | 2020-01-26 19:55 | PM.PNPUL ---
Progress Note: A&P Assessment and Plan (1) Acute and chronic respiratory failure with hypoxia: Code(s): J96.21 - Acute and chronic respiratory failure with hypoxia Status: Acute Assessment and Plan: Acute respiratory failure with mild hypercapnia superimprosed on chronic hypoxemic respiratory failure on O2 prior to this admission due to ILD, with worsening due to volume overload. He responded well to the 40 mg of Lasix IV in the ED, and is on his usual home dose Lasix 80 mg po once a day, less O2, 3 L/min, was on O5 L/min at home before this admission. I am going to add Lasix 40 mg IV now to increase his diuresis. His weight has increased since admission, still had pitting edema in his thighs, BUN and creatinine 115 / 0.9 so he can tolerate more diuresis. CXR still has diffuse changes. It will not be possible to determine how much of the radiographic abonrmality is due to pulmonary edema vs progression of the ILD; diuresing is appropriate. - IV Lasix 40 mg now -physical therapy -decreased O2 2 L/min at rest; home O2 evaluation in the am -he is more likely to qualify for port O2 concentrator on lower O2 flow, so weaning O2 is strongly encouraged -more anxiolytics with caution as far as Xanax with tolerance and respiratory depression. (2) ILD (interstitial lung disease): Code(s): J84.9 - Interstitial pulmonary disease, unspecified Status: Acute Assessment and Plan: He has interstitial lung disease, type is not specifically identified. [facility] evaluation was early 2019; patient refused a VATS lung biopsy. A second opinion at [facility] never launched wit hpandemic. His picture is not consistent with the usual presentation for NSIP or UIP. He has had negative autoimmune antibodies at [facility], (-) bacterial and viral studies. 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 When discharged December 27, he was on a prednisone 40 mg a day which caused fluid retention, increased weight gain. Will continue to wean his oxygen and oral steroids. (3) Oxygen dependent: Code(s): Z99.81 - Dependence on supplemental oxygen Status: Chronic Assessment and Plan: Has been on O2 at home, initially at night, and since 2019 has been on it around the clock. At last discharge in December he went home on 5 L/min, now is doing well on 3 L/min, lower O2 requirement, improving. Portable O2 Concentrator which needs to be arranged through our office, efforts now in progress He dislikes oxygen tanks, which is common. (4) Pulmonary edema: Qualifiers: Chronicity: acute Qualified Code(s): J81.0 - Acute pulmonary edema Code(s): J81.1 - Chronic pulmonary edema Status: Acute Assessment and Plan: proBNP is 629 and although this is modest for his age at higher than it has been on prior admissions. Last echo in the system, April 26, 2019 showed normal left ventricular systolic function. No wall motion abnormality. EF 68%. Mild enlargement of left atrium. Mild mitral regurgitation. Normal right atrial pressure. New echo January 22 now shows moderate pulmmonary hypertension RVSP 48 mmHg, not mentioned on the prior echo Apr 26. Otherwise, findings are similar. (5) Paroxysmal atrial fibrillation: Code(s): I48.0 - Paroxysmal atrial fibrillation Status: Acute Assessment and Plan: Had an ablation, now in sinus. Subjective Date/time seen: 01/26/20 19:55 Review of Systems Eyes: Eyes: Reports irritation (uses Visine at home for this. ) Psychiatric: Psychiatric: Reports anxiety (Says that he has always been hyper, needs more meds to calm
[2020-01-26] MEDS: TERAZOSIN HCL 1 MG CAPSULE PO (20:28)
[2020-01-26] MEDS: ALPRAZOLAM 0.25 MG TABLET PO (20:33)
[2020-01-27] VITALS (15 sets, daily range): BP systolic 106–110; BP diastolic 71–73; PULSE 70–78; RESP 18–28; TEMP 36.7–37.1; O2SAT 84–96
[2020-01-27 05:34] LABS: Basophils Percent Auto 0.2 % (0.2-1.2); Eosinophils Absolute Auto 0.2 K/mm3 (0-0.3); Eosinophils Percent Auto 1.8 % (0-4.4); Hemoglobin 10.8 g/dL (14.0-18.0); Immature Granulocyte Absolute 0.14 K/mm3 (0.00-0.031); Immature Granulocyte Percent A 1.4 % (0-0.5); Lymphocytes Absolute Auto 1.21 K/mm3 (0.9-3.2); Lymphocytes Percent Auto 11.8 % (18.3-44.2); Mean Corpuscular HGB Conc 31.8 g/dl (32-36); Mean Corpuscular Hemoglobin 29.8 pg (26-34); Mean Corpuscular Volume 93.9 fl (80-100); Mean Platelet Volume 9.6 fl (7.4-10.4); Monocytes Absolute Auto 0.5 K/mm3 (0.1-0.6); Neutrophils Absolute Auto 8.2 K/mm3 (1.3-6.7); Neutrophils Percent Auto 79.8 % (45.5-73.1); Nucleated Red Blood Cells Perc 0.2 % (0.0-0.2); Platelet Count Result 134 k/mm3 (150-375); Red Blood Count 3.62 M/mm3 (4.6-6.20); Red Cell Distribution Width 13.2 % (11.5-14.5); White Blood Count 10.2 K/mm3 (4.5-10.0)
[2020-01-27 05:47] LABS: Potassium 3.5 mmol/L (3.4-5.0)
[2020-01-27] MEDS: IPRATROPIUM BR 0.02% INH SOLN 0.5 MG/2.5 ML VIAL INHALATION ×2 (05:50→09:41)
[2020-01-27] MEDS: ALBUTEROL SULFATE NEB 2.5 MG/0.5 ML INH 5 MG INHALATION ×2 (05:51→09:41)
[2020-01-27 06:02] LABS: Blood Urea Nitrogen 14 mg/dL (9-20); CRP 1.8 mg/dL (<1.0); Calcium 8.7 mg/dL (8.4-10.2); Carbon Dioxide 38 mmol/L (22-30); Chloride 96 mmol/L (98-107); Estimated CRCL calculation 44 ml/min; Estimated Glomerular Filt Rate > 60; Glucose 82 mg/dL (75-110); Sodium 135 mmol/L (137-145)
--- NOTE | 2020-01-27 08:52 | PM.DS ---
DS: Admitting Diagnosis Admitting Diagnosis Admitting Diagnosis: Acute and chronic respiratory failure with hypoxia DS: Discharge Diagnosis Discharge Diagnosis (1) Acute and chronic respiratory failure with hypoxia: Code(s): J96.21 - Acute and chronic respiratory failure with hypoxia Status: Acute Assessment and Plan: Shade is a 79 year old male with history of severe COPD chronic respiratory failure on home oxygen 5 L and patient was recently discharged on tapering dose of prednisone he presented emergency department with a complaint of shortness of breath he also has a history of diastolic dysfunction, intersitial lung disease with pneumonia. pt had a recent admission. pt is found to be covid negative. Pt is getting better, pt is now on 3 liters of oxygen. COVID is negative. Cxr still shows pulmonary edema versus pneumonia versus acute exacerbation of chronic interstitial lung disease. Pt seen by pulmology, pt will need to have CONTINUOUS HOME OXYGEN ON DISCHARGE. PACs likely due to hypoxia. Portable O2 Concentrator being arranged through pulmology office. Stable for discharge today after home oxygen assessment test. (2) Community acquired pneumonia: Code(s): J18.9 - Pneumonia, unspecified organism Status: Acute Assessment and Plan: Pt is on IV Rocephin azithromycin for 3 days, oxygen 2-5 liters. BC negative to date, yeast grown in sputum cover with diflucan and nystatin swish and swallow. (3) CHF (congestive heart failure): Code(s): I50.9 - Heart failure, unspecified Status: Acute Assessment and Plan: Patient with history of diastolic dysfunction grade 1, pt transitioned from iv lasix to home oral lasix dose. Pt add additional iv lasix yesteday ordered by pulmologist. (4) Paroxysmal atrial fibrillation: Code(s): I48.0 - Paroxysmal atrial fibrillation Status: Acute Assessment and Plan: Patient rate is controlled anticoagulated with Eliquis (5) Anxiety: Code(s): F41.9 - Anxiety disorder, unspecified Status: Acute Assessment and Plan: Pt was given xanax in the hospital, does not want to take it anymore. Pt feels anxious every day. DS: Summary Time Spent with Patient Time attestation: Total time spent providing and/or coordinating discharge services:40 minutes on day of dischrage Exam Const: General: comfortable and no acute distress HENMT: General nose exam: Normal nares present Other: red cracked tongue Resp: Effort & Inspection: normal respiratory effort and other (fine crackles present ) GI: Other: Not distant Skin: General skin exam: normal color Neuro: Speech: normal speech Extrem: General: normal to inspection Psych: Affect: Anxious affect present DS: Data Data Completed and Pending Labs on day of discharge: Labs from last 24 hours 01/27/20 01/27/20 05:26 05:26 WBC 10.2 H RBC 3.62 L Hgb 10.8 L Hct 34.0 L MCV 93.9 MCH 29.8 MCHC 31.8 L RDW 13.2 Plt Count 134 L MPV 9.6 Immature Gran % (Auto) 1.4 H Neut % (Auto) 79.8 H Lymph % (Auto) 11.8 L Kendall % (Auto) 5.0 Eos % (Auto) 1.8 Baso % (Auto) 0.2 Lymph # (Auto) 1.21 Kendall # (Auto) 0.5 Eos # (Auto) 0.2 Baso # (Auto) 0.0 Abs Immat Gran (auto) 0.14 H Absolute Neuts (auto) 8.2 H Absolute Nucleated RBC 0.0 Nucleated RBC % 0.2 Sodium 135 L Potassium 3.5 Chloride 96 L Carbon Dioxide 38 H BUN 14 Creatinine 1.00 Estim Creat Clear Calc 44 Estimated GFR > 60 Glucose 82 Calcium 8.7 C-Reactive Protein 1.8 H Discharge Plan Discharge Attending physician on discharge: Yamilet Dave Consulting providers: Maria Marrero Discharging Clinician: Yamilet Dave Anticipated Discharge Date/Time: 01/27/20 16:00 Patient Disposition: Home, Self-Care Activity: as tolerated Diet: heart healthy Discharge Instructions: Follow up DR Marrero Pt to sta
[2020-01-27] MEDS: METOPROLOL TARTRATE 50 MG TAB PO (09:12)
[2020-01-27] MEDS: POTASSIUM CHLORIDE 20 MEQ PACKET (FOR LIQUID) 40 MEQ PO (09:12)
[2020-01-27] MEDS: FOLIC ACID 1 MG TABLET PO (09:12)
[2020-01-27] MEDS: FUROSEMIDE 80 MG TABLET PO (09:12)
[2020-01-27] MEDS: PANTOPRAZOLE 40 MG TABLET PO (09:12)
[2020-01-27] MEDS: CHOLECALCIFEROL 1,000 UNIT TABLET 1000 UNITS PO (09:12)
[2020-01-27] MEDS: THIAMINE HCL 100 MG TABLET PO (09:12)
[2020-01-27] MEDS: CYANOCOBALAMIN 1,000 MCG TABLET 2000 MCG PO (09:13)
[2020-01-27] MEDS: busPIRone HCL 5 MG TABLET 15 MG PO (09:13)
[2020-01-27] MEDS: APIXABAN 5 MG TABLET PO (09:13)
[2020-01-27] MEDS: predniSONE 20 MG TABLET PO (09:13)
[2020-01-27] MEDS: NYSTATIN 100,000 UNITS/ML SUSP 5 ML ORAL.SUSP PO ×2 (09:13→14:11)
--- NOTE | 2020-01-27 15:01 | PM.PNPUL ---
Progress Note: A&P Assessment and Plan (1) Acute and chronic respiratory failure with hypoxia: Code(s): J96.21 - Acute and chronic respiratory failure with hypoxia Status: Acute Assessment and Plan: Acute respiratory failure with mild hypercapnia; has chronic hypoxemic respiratory failure on O2 prior to this admission due to ILD; he worsened due to volume overload. He responded well to the 40 mg of Lasix IV in the ED, and is on his usual home dose Lasix 80 mg po once a day, less O2, now down to 2 L/min at rest, 4 L/min with exertion. L/min, was on O5 L/min at home before this admission. I am going to add Lasix 40 mg IV now to increase his diuresis. His weight has increased since admission, still had pitting edema in his thighs, BUN and creatinine 115 / 0.9 so he can tolerate more diuresis. CXR still has diffuse changes. It will not be possible to determine how much of the radiographic abonrmality is due to pulmonary edema vs progression of the ILD; diuresing is appropriate. - IV Lasix 40 mg now -physical therapy -decreased O2 2 L/min at rest; 4 L/min exertion. -Dr Dave stopped anxiolytics; (2) ILD (interstitial lung disease): Code(s): J84.9 - Interstitial pulmonary disease, unspecified Status: Acute Assessment and Plan: - Interstitial lung disease, type is not specifically identified; has a mixed type of ILD in the advanced stages. - [facility] evaluation early 2019; patient refused VATS lung biopsy. A second opinion at [facility] never launched with pandemic. - his is not consistent with the usual presentation for NSIP or UIP; negative autoimmune antibodies at [facility], (-) bacterial and viral studies. - when discharged December 27, he was on a prednisone 40 mg a day which caused fluid retention, increased weight gain. O2 and steroids have been weaned. (3) Oxygen dependent: Code(s): Z99.81 - Dependence on supplemental oxygen Status: Chronic Assessment and Plan: Has been on O2 at home, initially at night, and since 2019 has been on it around the clock. - last discharge in December he went home on 5 L/min, now is doing well on 2 L/min at rest, 4 L/min with exertion. Improved. Portable O2 Concentrator which needs to be arranged through our office, through virtual visit next week He dislikes oxygen tanks, which is common. [facility] is his DME. (4) Pulmonary edema: Qualifiers: Chronicity: acute Qualified Code(s): J81.0 - Acute pulmonary edema Code(s): J81.1 - Chronic pulmonary edema Status: Acute Assessment and Plan: proBNP is 629 and although this is modest for his age at higher than it has been on prior admissions. Last echo in the system, April 26, 2019 showed normal left ventricular systolic function. No wall motion abnormality. EF 68%. Mild enlargement of left atrium. Mild mitral regurgitation. Normal right atrial pressure. New echo January 22 now shows moderate pulmmonary hypertension RVSP 48 mmHg, not mentioned on the prior echo Apr 26. Otherwise, findings are similar. (5) Paroxysmal atrial fibrillation: Code(s): I48.0 - Paroxysmal atrial fibrillation Status: Acute Assessment and Plan: Had an ablation, now in sinus. Subjective Date/time seen: 01/27/20 15:01 79 yo man is seen in follow up for COPD, chronic respiratory failure on O2, ILD, admitted with increased shortness of breath, increased edema, and CXR showed diffused pulmonary edema and progressive changes consistent with ILD. He improved with Lasix, reducing steroids. O2 needs have improved. Home oxygen evaluation shows he needs 2 L
--- NOTE | 2020-01-27 15:35 | PCRCNOTE ---
PT HAS HOME O2, EVAL WAS COMPLETED FOR UPDATED PATIENT NEEDS ONLY
== END 2020-01-27 17:00 | disposition home health service (06) | DRG 193 ==
LOC: ANHED 05:52 → ANHICU 06:10 → ANHIMU 01-24 08:31 → ANH3MEDSUR 01-27 08:52 → ANHICU 01-31 10:36 → ANHIMU 01-31 10:36
PROVIDERS: Family Medicine; Admitting Provider Family Medicine; Emergency Provider Emergency Medicine; PCP Family Medicine; Visit Provider Family Medicine
DX: J18.9 Pneumonia, unspecified organism (principal); J96.21 Acute and chronic respiratory failure with hypoxia; J96.22 Acute and chronic respiratory failure with hypercapnia; I50.33 Acute on chronic diastolic (congestive) heart failure; J44.0 Chronic obstructive pulmonary disease with (acute) lower respiratory infection; Z20.828 Contact with and (suspected) exposure to other viral communicable diseases; I11.0 Hypertensive heart disease with heart failure; I48.0 Paroxysmal atrial fibrillation; F41.9 Anxiety disorder, unspecified; I25.10 Atherosclerotic heart disease of native coronary artery without angina pectoris; K21.9 Gastro-esophageal reflux disease without esophagitis; E78.2 Mixed hyperlipidemia; M48.00 Spinal stenosis, site unspecified; N40.0 Benign prostatic hyperplasia without lower urinary tract symptoms; F32.9 Major depressive disorder, single episode, unspecified; D51.9 Vitamin B12 deficiency anemia, unspecified; E55.9 Vitamin D deficiency, unspecified; Z99.81 Dependence on supplemental oxygen; Z95.1 Presence of aortocoronary bypass graft; Z87.891 Personal history of nicotine dependence; Z86.718 Personal history of other venous thrombosis and embolism; Z79.01 Long term (current) use of anticoagulants
CPT/HCPCS: 36415; 36600; 71045; 80048; 82805; 83735; 83880; 84132; 84484; 85025; 85055; 85380; 85610; 85730; 86140; 87635; 93005; 93306; 93971; 94618; 94640; 96365; 96375; 96376; 97162; 99285; A9270; C9803; G0378; J0456; J0696; J1940; J7512; U0003